=== PATIENT | male | born 1975 | race Caucasian/White ===

== ENCOUNTER 2021-04-27 07:04 | Outpatient (REF) | payer OTHER, SELFPAY ==
[2021-04-27 07:38] LABS: IDNOW Serial# 9DD0AD1C
[2021-04-27 07:39] LABS: COVID-19 Test Negative (Negative)
== END 2021-04-27 07:05 | disposition home or self-care (01) ==
LOC: HO.ED 07:04
PROVIDERS: Visit Provider Internal Medicine
DX: Z20.822 Contact with and (suspected) exposure to COVID-19 (principal)
CPT/HCPCS: 36415; 87635

== ENCOUNTER 2021-06-29 05:51 | Outpatient (REF) | payer OTHER, SELFPAY ==
[2021-06-29 06:16] LABS: IDNOW Serial# 9DD0AD1C
[2021-06-29 06:17] LABS: COVID-19 Test Positive (Negative)
== END 2021-06-29 05:52 | disposition home or self-care (01) ==
LOC: HO.LAB 05:51
PROVIDERS: Visit Provider Internal Medicine
DX: Z20.822 Contact with and (suspected) exposure to COVID-19 (principal)
CPT/HCPCS: 36415; 87635

== ENCOUNTER 2022-06-06 14:51 | Outpatient (REF) | payer OTHER, SELFPAY ==
[2022-06-06 15:46] LABS: Influenza A PCR NEGATIVE (Negative); Influenza B PCR NEGATIVE (Negative); Resp Syncy Virus RNA Qual PCR NEGATIVE (Negative); SARS COV2 PCR INHOUSE NEGATIVE (Negative)
== END 2022-06-06 14:52 | disposition home or self-care (01) ==
LOC: HO.LAB 14:51
PROVIDERS: Visit Provider Internal Medicine
DX: Z20.822 Contact with and (suspected) exposure to COVID-19 (principal)
CPT/HCPCS: 0241U

== ENCOUNTER 2022-07-02 19:04 | Inpatient (IN) | payer OTHER, SELFPAY ==
--- NOTE | ~2022-07-02 | XR_ITS ---
EXAMINATION: XR CHEST CLINICAL INFORMATION: Post enteric tube placement. COMPARISON: CT abdomen/pelvis performed earlier today at 7:47 PM. TECHNIQUE: Frontal view of the chest was obtained. FINDINGS: An enteric tube terminates in the stomach. Normal appearance of the cardiomediastinal silhouette. No focal airspace opacity, pleural effusion or pneumothorax. Partially imaged dilated loops of small bowel. No acute osseous abnormalities. XR/XR chest 1V IMPRESSION: 1. Enteric tube terminates in the stomach. 2. No acute cardiopulmonary findings. 3. Partially imaged dilated loops of small bowel.
--- NOTE | ~2022-07-02 | CT_ITS ---
EXAMINATION: CT ABDOMEN AND PELVIS WITHOUT CONTRAST CLINICAL INFORMATION: Abdominal pain. Vomiting fecal matter COMPARISON: None TECHNIQUE: Multidetector volumetric imaging was performed from the superior aspect of the liver through the pubic symphysis. Sagittal and coronal reformatted images were obtained on the technologist's workstation. This CT examination was performed using dose optimization techniques as appropriate, variously including the following: *Automated exposure control *Adjustment of mA and/or kV according to patient size (this includes techniques or standardized protocols for targeted exams where dose is matched to indication/reason for exam; i.e. extremities or head) *Use of iterative reconstruction technique DLP: 777 mGy-cm FINDINGS: LUNG BASES: The visualized lung bases are unremarkable. LIVER, GALLBLADDER, AND BILIARY TREE: The liver is normal in size, shape, and attenuation. No focal hepatic lesion or biliary ductal dilatation is present. The gallbladder is unremarkable with no evidence of radiopaque gallstones, gallbladder wall thickening, or obvious pericholecystic inflammatory changes. PANCREAS: Unremarkable. SPLEEN: Unremarkable. ADRENAL GLANDS: Unremarkable. KIDNEYS AND URETERS: The kidneys are normal in size, shape, and attenuation. No hydronephrosis, hydroureter, or calculi seen. No perinephric stranding. BLADDER: Unremarkable. GASTROINTESTINAL TRACT: Moderately distended small bowel loops throughout the abdomen. Transition point is just proximal to the terminal ileum. The terminal ileum is decompressed. The mesenteric twist. No bowel wall thickening or edema. Large bowel is decompressed. There is a redundant loop of the sigmoid colon extending into the right lower quadrant. The appendix is normal. No abnormality of the stomach. ABDOMINAL WALL: No significant hernia is appreciated. LYMPH NODES: Normal. VASCULAR: Unremarkable PELVIC VISCERA: Unremarkable. OSSEOUS STRUCTURES: Unremarkable. CT/CT abdomen pelvis wo IV con IMPRESSION: There is a distal small bowel obstruction. Fleischner guidelines were followed.
[2022-07-02 19:19] VITALS: BP 149/110; PULSE 145; RESP 18; O2SAT 95; BMI 27.1
--- NOTE | 2022-07-02 19:19 | ED_ITS ---
HPI - Abdominal Pain General Chief Complaint: Abdominal Pain <ANTONY Godinez - Last Filed: 07/02/22 19:25> Stated Complaint: Abdominal Pain <ANTONY Godinez - Last Filed: 07/02/22 19:25> Time Seen by Provider: 07/02/22 19:39 <ANTONY Godinez - Last Filed: 07/02/22 19:25> Source: patient <Ermias Wisdom MD - Last Filed: 07/03/22 01:48> Mode of arrival: ambulatory <Ermias Wisdom MD - Last Filed: 07/03/22 01:48> Limitations: no limitations <Ermias Wisdom MD - Last Filed: 07/03/22 01:48> History of Present Illness HPI narrative: Patient with history of severe acid reflux in 20s when knee has GI workup and interventional radiologist asking about the malrotation/intussusception which patient never had today patient comes here for nausea vomiting abdominal distention and pain since midnight , patient not able to pass any flatus since a.m. today vomiting fecal smell multiple times, no history of SBO in the past no fever or chills <Ermias Wisdom MD - Last Filed: 07/03/22 01:48> Related Data Home Medications: Home Medications Medication Instructions Recorded Confirmed omeprazole 40 mg capsule,delayed 40 mg PO DAILY 07/02/22 07/02/22 release sertraline 100 mg tablet 100 mg PO DAILY 07/02/22 07/02/22 <ANTONY Godinez - Last Filed: 07/02/22 19:25> Allergies/Adverse Reactions: Allergies Allergy/AdvReac Type Severity Reaction Status Date / Time heparin Allergy Unknown Unknown Verified 07/02/22 19:21 Penicillins Allergy Unknown Unknown Verified 07/02/22 19:21 <ANTONY Godinez - Last Filed: 07/02/22 19:25> Review of Systems Review of Systems Yes all other systems are reviewed and are negative <Ermias Wisdom MD - Last Filed: 07/03/22 01:48> PMFSH Social History Social History: Social History Alcohol intake: unknown Smoked in Last 30 Days: Yes Use of substances other than those prescribed or required for medical reasons: Unable to respond Advance Directives: No <ANTONY Godinez - Last Filed: 07/02/22 19:25> Physical Exam ED Vital Signs: Vital Signs - 24 hr 07/02/22 19:19 07/02/22 21:41 Temperature 98.0 F Pulse Rate 145 H 89 Respiratory Rate 18 18 Blood Pressure 149/110 H 147/105 H Pulse Oximetry 95 94 Oxygen Delivery Method Room Air BMI result Body Mass Index 27.1 <ANTONY Godinez - Last Filed: 07/02/22 19:25> Vital Signs - 24 hr 07/02/22 19:19 07/02/22 21:41 Temperature 98.0 F Pulse Rate 145 H 89 Respiratory Rate 18 18 Blood Pressure 149/110 H 147/105 H Pulse Oximetry 95 94 Oxygen Delivery Method Room Air BMI result Body Mass Index 27.1 <Ermias Wisdom MD - Last Filed: 07/03/22 01:48> Appearance: Alert. Oriented X3. In mild discomfort Eyes: No pallor or icterus ENT: Pharynx normal. Oral Mucosa moist Neck: Normal inspection. Neck supple. CVS: Normal heart rate and rhythm. Pulses normal. Respiratory: No respiratory distress. Equal air entry bilateral, no wheezing/rales/rhonchi Abdomen: Gaseous distended, sluggish bowel sounds. Diffuse tenderness no rebound tenderness no mass palpable, no CVA tenderness Skin: Skin warm and dry. Normal skin color. Normal skin turgor. Extremities: No lower extremity edema. No calf tenderness Neuro: Oriented X 3. No motor deficit. <Ermias Wisdom MD - Last Filed: 07/03/22 01:48> Course Course Course Narrative: RME--46yo with a past medical history of GI malrotation presenting to the ED complaining of abdominal pain, constipation, and vomiting fecal matter x 24 hours. Reports unable to tolerate p.o. Patient hypertensive and tachycardic in triage Labs, UA, CT AP, IVF ordered Patient pulled back into main ED <ANTONY Godinez - Last Filed: 07/02/22 19:25> Medical Decision Making Medical Decision Making MDM Narrative: Patient with acute small-bowel obstruction CT scan showed distended small bowel loops throughout the abdomen transition point just proximal to the terminal ileum NG tube was placed and about 800 cc of gastric contents drained patient felt much better case discussed Dr. Elam will admit patient for further evaluation possibly laparotomy patient had elevated creatinine to 2.35 with no prior history of kidney disease likely from prerenal from volume loss <Ermias Wisdom MD - Last Filed: 07/03/22 01:48> Differential Diagnosis SBO./pancreatitis/ischemic bowel <Ermias Wisdom MD - Last Filed: 07/03/22 01:48> Lab Data MDM Lab Attestation statement: I reviewed the patient's lab results. <Ermias Wisdom MD - Last Filed: 07/03/22 01:48> Result Diagrams: : 07/02/22 20:28 07/02/22 20:28 <ANTONY Godinez - Last Filed: 07/02/22 19:25> Labs: Lab Results 07/02/22 07/02/22 07/02/22 Range/Units 20:27 20:27 20:28 WBC 13.4 H (4.8-10.8) X10*3/uL RBC 6.41 H (4.60-5.80) X10*6/uL Hgb 18.7 H (14.0-18.0) g/dl Hct 54.8 H (42.0-52.0) % MCV 85.5 (80.0-98.0) fL MCH 29.2 (27.0-33.0) pg MCHC 34.1 (31.0-36.0) g/dl RDW 12.5 (11.0-16.0) % Plt Count 421 H (160-400) X10*3/uL MPV 9.2 L (9.4-12.4) fL Immature Gran % (Auto) 0.6 H (0.0-0.4) % Neut % (Auto) 80.7 H (45-73) % Lymph % (Auto) 11.4 L (20-40) % Sutton % (Auto) 6.5 (2-11) % Eos % (Auto) 0.3 (0-4) % Baso % (Auto) 0.5 (0-2) % Lymph # (Auto) 1.5 (1.2-4.9) X10*3/uL Sutton # (Auto) 0.9 (0.1-1.2) X10*3/uL Eos # (Auto) 0.0 (0.0-0.4) X10*3/uL Baso # (Auto) 0.1 (0.0-0.2) X10*3/uL Abs Immat Gran (auto) 0.08 H (0.00-0.03) X10*3/uL Absolute Neuts (auto) 10.8 H (2.0-8.3) x10*3/uL Absolute Nucleated RBC 0.000 (0.0-0.012) X10*3/uL Nucleated RBC % (auto) 0.0 (0.0-0.2) /100WBC Sodium (135-145) mmol/L Potassium (3.3-5.1) mmol/L Chloride (96-108) mmol/L Carbon Dioxide (22-29) mmol/L Anion Gap (12-20) BUN (9-16) mg/dL Creatinine (0.5-1.4) mg/dL Estim Creat Clear Calc Estimated GFR Random Glucose (60-115) mg/dL Lactic Acid (0.5-2.0) mmol/L Calcium (8.4-10.2) mg/dL Magnesium (1.6-2.6) mg/dL Total Bilirubin (0.0-1.0) mg/dL Direct Bilirubin (0.0-0.5) mg/dL AST (5-37) U/L ALT (0-40) U/L Alkaline Phosphatase (39-117) U/L Total Protein (6.5-8.0) g/dL Albumin (3.5-5.0) g/dL Lipase (8-78) U/L COVID-19 (GE) Negative (Negative) COVID-19 Clin Com See Note Influenza Type A (DEREK) Negative (Negative) Influenza Type B (DEREK) Negative (Negative) Influenza A & B Note See Note 07/02/22 07/02/22 Range/Units 20:28 20:28 WBC (4.8-10.8) X10*3/uL RBC (4.60-5.80) X10*6/uL Hgb (14.0-18.0) g/dl Hct (42.0-52.0) % MCV (80.0-98.0) fL MCH (27.0-33.0) pg MCHC (31.0-36.0) g/dl RDW (11.0-16.0) % Plt Count (160-400) X10*3/uL MPV (9.4-12.4) fL Immature Gran % (Auto) (0.0-0.4) % Neut % (Auto) (45-73) % Lymph % (Auto) (20-40) % Sutton % (Auto) (2-11) % Eos % (Auto) (0-4) % Baso % (Auto) (0-2) % Lymph # (Auto) (1.2-4.9) X10*3/uL Sutton # (Auto) (0.1-1.2) X10*3/uL Eos # (Auto) (0.0-0.4) X10*3/uL Baso # (Auto) (0.0-0.2) X10*3/uL Abs Immat Gran (auto) (0.00-0.03) X10*3/uL Absolute Neuts (auto) (2.0-8.3) x10*3/uL Absolute Nucleated RBC (0.0-0.012) X10*3/uL Nucleated RBC % (auto) (0.0-0.2) /100WBC Sodium 140 (135-145) mmol/L Potassium 4.5 (3.3-5.1) mmol/L Chloride 99 (96-108) mmol/L Carbon Dioxide 25 (22-29) mmol/L Anion Gap 21 H (12-20) BUN 26 H (9-16) mg/dL Creatinine 2.35 H (0.5-1.4) mg/dL Estim Creat Clear Calc 44.0 Estimated GFR 30 Random Glucose 122 H (60-115) mg/dL Lactic Acid 2.2 H* (0.5-2.0) mmol/L Calcium 11.2 H (8.4-10.2) mg/dL Magnesium 2.0 (1.6-2.6) mg/dL Total Bilirubin 0.4 (0.0-1.0) mg/dL Direct Bilirubin < 0.2 (0.0-0.5) mg/dL AST 21 (5-37) U/L ALT 20 (0-40) U/L Alkaline Phosphatase 64 (39-117) U/L Total Protein 9.9 H (6.5-8.0) g/dL Albumin 6.1 H (3.5-5.0) g/dL Lipase 15 (8-78) U/L COVID-19 ([facility]) (Negative) COVID-19 Clin Com Influenza Type A ([facility]EREK) (Negative) Influenza Type B (DEREK) (Negative) Influenza A & B Note <ANTONY Godinez - Last Filed: 07/02/22 19:25> Lab Results 07/02/22 07/02/22 07/02/22 Range/Units 20:27 20:27 20:28 WBC 13.4 H (4.8-10.8) X10*3/uL RBC 6.41 H (4.60-5.80) X10*6/uL Hgb 18.7 H (14.0-18.0) g/dl Hct 54.8 H (42.0-52.0) % MCV 85.5 (80.0-98.0) fL MCH 29.2 (27.0-33.0) pg MCHC 34.1 (31.0-36.0) g/dl RDW 12.5 (11.0-16.0) % Plt Count 421 H (160-400) X10*3/uL MPV 9.2 L (9.4-12.4) fL Immature Gran % (Auto) 0.6 H (0.0-0.4) % Neut % (Auto) 80.7 H (45-73) % Lymph % (Auto) 11.4 L (20-40) % Sutton % (Auto) 6.5 (2-11) % Eos % (Auto) 0.3 (0-4) % Baso % (Auto) 0.5 (0-2) % Lymph # (Auto) 1.5 (1.2-4.9) X10*3/uL Sutton # (Auto) 0.9 (0.1-1.2) X10*3/uL Eos # (Auto) 0.0 (0.0-0.4) X10*3/uL Baso # (Auto) 0.1 (0.0-0.2) X10*3/uL Abs Immat Gran (auto) 0.08 H (0.00-0.03) X10*3/uL Absolute Neuts (auto) 10.8 H (2.0-8.3) x10*3/uL Absolute Nucleated RBC 0.000 (0.0-0.012) X10*3/uL Nucleated RBC % (auto) 0.0 (0.0-0.2) /100WBC Sodium (135-145) mmol/L Potassium (3.3-5.1) mmol/L Chloride (96-108) mmol/L Carbon Dioxide (22-29) mmol/L Anion Gap (12-20) BUN (9-16) mg/dL Creatinine (0.5-1.4) mg/dL Estim Creat Clear Calc Estimated GFR Random Glucose (60-115) mg/dL Lactic Acid (0.5-2.0) mmol/L Calcium (8.4-10.2) mg/dL Magnesium (1.6-2.6) mg/dL Total Bilirubin (0.0-1.0) mg/dL Direct Bilirubin (0.0-0.5) mg/dL AST (5-37) U/L ALT (0-40) U/L Alkaline Phosphatase (39-117) U/L Total Protein (6.5-8.0) g/dL Albumin (3.5-5.0) g/dL Lipase (8-78) U/L COVID-19 (GE) Negative (Negative) COVID-19 Clin Com See Note Influenza Type A ([facility]EREK) Negative (Negative) Influenza Type B ([facility]EREK) Negative (Negative) Influenza A & B Note See Note 07/02/22 07/02/22 Range/Units 20:28 20:28 WBC (4.8-10.8) X10*3/uL RBC (4.60-5.80) X10*6/uL Hgb (14.0-18.0) g/dl Hct (42.0-52.0) % MCV (80.0-98.0) fL MCH (27.0-33.0) pg MCHC (31.0-36.0) g/dl RDW (11.0-16.0) % Plt Count (160-400) X10*3/uL MPV (9.4-12.4) fL Immature Gran % (Auto) (0.0-0.4) % Neut % (Auto) (45-73) % Lymph % (Auto) (20-40) % Sutton % (Auto) (2-11) % Eos % (Auto) (0-4) % Baso % (Auto) (0-2) % Lymph # (Auto) (1.2-4.9) X10*3/uL Sutton # (Auto) (0.1-1.2) X10*3/uL Eos # (Auto) (0.0-0.4) X10*3/uL Baso # (Auto) (0.0-0.2) X10*3/uL Abs Immat Gran (auto) (0.00-0.03) X10*3/uL Absolute Neuts (auto) (2.0-8.3) x10*3/uL Absolute Nucleated RBC (0.0-0.012) X10*3/uL Nucleated RBC % (auto) (0.0-0.2) /100WBC Sodium 140 (135-145) mmol/L Potassium 4.5 (3.3-5.1) mmol/L Chloride 99 (96-108) mmol/L Carbon Dioxide 25 (22-29) mmol/L Anion Gap 21 H (12-20) BUN 26 H (9-16) mg/dL Creatinine 2.35 H (0.5-1.4) mg/dL Estim Creat Clear Calc 44.0 Estimated GFR 30 Random Glucose 122 H (60-115) mg/dL Lactic Acid 2.2 H* (0.5-2.0) mmol/L Calcium 11.2 H (8.4-10.2) mg/dL Magnesium 2.0 (1.6-2.6) mg/dL Total Bilirubin 0.4 (0.0-1.0) mg/dL Direct Bilirubin < 0.2 (0.0-0.5) mg/dL AST 21 (5-37) U/L ALT 20 (0-40) U/L Alkaline Phosphatase 64 (39-117) U/L Total Protein 9.9 H (6.5-8.0) g/dL Albumin 6.1 H (3.5-5.0) g/dL Lipase 15 (8-78) U/L COVID-19 ([facility]) (Negative) COVID-19 Clin Com Influenza Type A ([facility]EREK) (Negative) Influenza Type B ([facility]EREK) (Negative) Influenza A & B Note <Ermias Wisdom MD - Last Filed: 07/03/22 01:48> Medications Administered Generic Name Dose Route Start Last Admin Trade Name Freq PRN Reason Stop Dose Admin Dextrose/Lactated Ringer's 1,000 mls @ 125 mls/hr 07/02/22 22:00 07/02/22 23:38 D5lr IVCONT 125 mls/hr .Q8H JARET Administration Discontinued Medications Generic Name Dose Route Start Last Admin Trade Name Freq PRN Reason Stop Dose Admin Famotidine 20 mg 07/02/22 19:22 07/02/22 20:45 Famotidine/Pf 20 Mg/2 Ml Vial IVPUSH 07/02/22 19:23 20 mg ONCE ONE Administration Sodium Chloride 1,000 mls @ 999 mls/hr 07/02/22 19:30 07/02/22 21:59 Ns IV 07/02/22 20:30 Infused .Q1H1M JARET Infusion Sodium Chloride 1,000 mls @ 999 mls/hr 07/02/22 21:24 07/02/22 23:38 Ns IV 07/02/22 22:24 Infused .Q1H1M ONE Infusion Lidocaine HCl 1 appl 07/02/22 20:52 07/02/22 22:17 Lidocaine Hcl 4 % Lvtxaz-Q-Ede 4 Ml TOPICAL 07/02/22 20:53 1 appl ONCE ONE Administration Morphine Sulfate 4 mg 07/02/22 20:17 07/02/22 20:46 Morphine Sulfate 4 Mg/Ml Cartridge IVPUSH 07/02/22 20:18 4 mg ONCE ONE Administration Protocol Ondansetron HCl 4 mg 07/02/22 19:22 07/02/22 20:45 Ondansetron Hcl 4 Mg/2 Ml Vial IVPUSH 07/02/22 19:23 4 mg ONCE ONE Administration <ANTONY Godinez - Last Filed: 07/02/22 19:25> Medications Administered Generic Name Dose Route Start Last Admin Trade Name Felipe PRN Reason Stop Dose Admin Dextrose/Lactated Ringer's 1,000 mls @ 125 mls/hr 07/02/22 22:00 07/02/22 23:38 D5lr IVCONT 125 mls/hr .Q8H JARET Administration Discontinued Medications Generic Name Dose Route Start Last Admin Trade Name Felipe PRN Reason Stop Dose Admin Famotidine 20 mg 07/02/22 19:22 07/02/22 20:45 Famotidine/Pf 20 Mg/2 Ml Vial IVPUSH 07/02/22 19:23 20 mg ONCE ONE Administration Sodium Chloride 1,000 mls @ 999 mls/hr 07/02/22 19:30 07/02/22 21:59 Ns IV 07/02/22 20:30 Infused .Q1H1M JARET Infusion Sodium Chloride 1,000 mls @ 999 mls/hr 07/02/22 21:24 07/02/22 23:38 Ns IV 07/02/22 22:24 Infused .Q1H1M ONE Infusion Lidocaine HCl 1 appl 07/02/22 20:52 07/02/22 22:17 Lidocaine Hcl 4 % Eblppr-P-Srq 4 Ml TOPICAL 07/02/22 20:53 1 appl ONCE ONE Administration Morphine Sulfate 4 mg 07/02/22 20:17 07/02/22 20:46 Morphine Sulfate 4 Mg/Ml Cartridge IVPUSH 07/02/22 20:18 4 mg ONCE ONE Administration Protocol Ondansetron HCl 4 mg 07/02/22 19:22 07/02/22 20:45 Ondansetron Hcl 4 Mg/2 Ml Vial IVPUSH 07/02/22 19:23 4 mg ONCE ONE Administration <Ermias Wisdom MD - Last Filed: 07/03/22 01:48> Discharge Plan Discharge Clinical Impression: Small bowel obstruction, Acute renal failure (ARF) <ANTONY Godinez - Last Filed: 07/02/22 19:25> Patient Disposition: Admitted As Inpatient <ANTONY Godinez - Last Filed: 07/02/22 19:25>
[2022-07-02 20:44] LABS: MANUAL DIFF FLAG NO
[2022-07-02] MEDS: ondansetron HCL 4 MG/2 ML VIAL IVPUSH (20:45)
[2022-07-02] MEDS: Famotidine/PF 20 MG/2 ML VIAL IVPUSH (20:45)
[2022-07-02 20:46] LABS: Basophils Absolute Auto 0.1 X10*3/uL (0.0-0.2); Basophils Percent Auto 0.5 % (0-2); Eosinophils Percent Auto 0.3 % (0-4); Hematocrit 54.8 % (42.0-52.0); Hemoglobin 18.7 g/dl (14.0-18.0); Imm Gran Abs Auto 0.08 X10*3/uL (0.00-0.03); Imm Gran Pct Auto 0.6 % (0.0-0.4); Lymphocytes Absolute Auto 1.5 X10*3/uL (1.2-4.9); Lymphocytes Percent Auto 11.4 % (20-40); Mean Corpuscular HGB Conc 34.1 g/dl (31.0-36.0); Mean Corpuscular Hemoglobin 29.2 pg (27.0-33.0); Mean Corpuscular Volume 85.5 fL (80.0-98.0); Mean Platelet Volume 9.2 fL (9.4-12.4); Monocytes Absolute Auto 0.9 X10*3/uL (0.1-1.2); Monocytes Percent Auto 6.5 % (2-11); Neutrophils Absolute Auto 10.8 x10*3/uL (2.0-8.3); Neutrophils Percent Auto 80.7 % (45-73); Platelet Count 421 X10*3/uL (160-400); Red Blood Count 6.41 X10*6/uL (4.60-5.80); Red Cell Distribution Width 12.5 % (11.0-16.0); White Blood Count 13.4 X10*3/uL (4.8-10.8)
[2022-07-02] MEDS: Morphine Sulfate 4 MG/ML CARTRIDGE IVPUSH (20:46)
[2022-07-02] MEDS: 0.9 % Sodium Chloride 1,000 ML 999 ML IV ×2 (20:46→22:10)
--- NOTE | 2022-07-02 21:04 | PC.NURSE ---
Pt alert and oriented ; No apparent distress, c/o abdominal pain accompanied by n/v last 2 days.
[2022-07-02 21:06] LABS: IDNOW Serial# BCCEAD1C; Influenza A Negative (Negative); Influenza B2 Negative (Negative)
[2022-07-02 21:07] LABS: COVID-19 Test Negative (Negative); IDNOW Serial# 16C4AD1C
[2022-07-02 21:17] LABS: Alanine Aminotransferase 20 U/L (0-40); Albumin Level 6.1 g/dL (3.5-5.0); Alkaline Phosphatase 64 U/L (39-117); Anion Gap 21 (12-20); Aspartate Amino Transferase 21 U/L (5-37); Bilirubin Direct < 0.2 mg/dL (0.0-0.5); Bilirubin Total 0.4 mg/dL (0.0-1.0); Blood Urea Nitrogen 26 mg/dL (9-16); Calcium 11.2 mg/dL (8.4-10.2); Carbon Dioxide 25 mmol/L (22-29); Chloride 99 mmol/L (96-108); Estimated Glomerular Filt Rate 30; Glucose Random 122 mg/dL (60-115); Lipase 15 U/L (8-78); Potassium 4.5 mmol/L (3.3-5.1); Sodium 140 mmol/L (135-145); Total Protein 9.9 g/dL (6.5-8.0)
--- NOTE | 2022-07-02 21:21 | PC.NURSE ---
At bedside, when Jayla RN placed gtube; IV line est. 20g L forearm by this nurse
[2022-07-02 21:22] LABS: Lactic Acid 2.2 mmol/L (0.5-2.0)
[2022-07-02 21:41] VITALS: BP 147/105; PULSE 89; RESP 18; TEMP 36.7; O2SAT 94
--- NOTE | 2022-07-02 21:58 | PHA.MEDREC ---
Pharmacy Consult ? Medication Reconciliation Pharmacy has completed the medication reconciliation.
[2022-07-02] MEDS: Lidocaine HCl 4 % Laryng-O-Jet 4 ML 1 APPL TOPICAL (22:17)
[2022-07-02 22:43] LABS: Reflex Lactate? Lactic Acid Added
[2022-07-02 23:15] VITALS: BP 158/102; PULSE 79; RESP 18; TEMP 37; O2SAT 99
[2022-07-02] MEDS: Dextrose 5 % and Lactated Ring 1,000 ML 125 ML IVCONT (23:38)
--- NOTE | 2022-07-02 23:42 | MHC.EDTECH ---
pt transferred into hospital bed. resting comfortably at this time.
[2022-07-02 23:54] LABS: ~Lactic Acid-LAB USE ONLY 0.8 mmol/L (0.5-2.0)
--- NOTE | 2022-07-03 01:21 | PC.NURSE ---
Held ativan at this time. Pt is sleeping and expressed concern for being able to fall asleep, so this nurse did not want to wake pt.
--- NOTE | 2022-07-03 02:52 | PC.NURSE ---
Pt sleeping, no apparent distress, gtube still intact
[2022-07-03 03:01] VITALS: RESP 18
[2022-07-03 05:02] VITALS: BP 148/98; PULSE 69; RESP 17; TEMP 37; O2SAT 99
--- NOTE | 2022-07-03 06:50 | PC.NURSE ---
D5LR ordered from 2200 still running, 0600 delayed administration for that reason
--- NOTE | 2022-07-03 07:43 | P.HPGS_ITS ---
History of Present Illness History of Present Illness Date of Service: 07/03/22 Chief complaint: Small bowel obstruction Narrative: Aaron Sorenson is a 46 year old male presenting with complaints of abdominal distension nausea and vomiting over the previous 24 hours. He reports the emesi s was fecal in nature. He denies a previous history of abdominal surgeries but does have a possible history of intestinal malrotation and intussusception. He reports 2 episodes of abdominal pain in the left upper quadrant which quickly resolved. He presented to the emergency department because of the persistent vomiting. He has not passed bowels in the past 24 hours but does report passing flatus. He presented to the emergency department for further evaluation. He was noted to be dehydrated with an elevated hemoglobin and hematocrit, and acute renal failure. CT abdomen and pelvis revealed dilated small bowel and stomach with an apparent transition point the distal ileum. Findings were suggestive of a small-bowel obstruction. He is admitted to the surgical service for further management. A nasogastric tube was placed with production of fecal appearing material. Review of Systems Review of Systems: Yes all other systems are reviewed and are negative Constitutional: Constitutional: Denies chills, Denies fever(s), Denies headache(s), Reports poor appetite and Denies weakness ENT: Denies headache(s) Cardiovascular: Cardiovascular: Denies chest pain, Reports rapid heart rate, Denies irregular heart rhythm, Denies palpitations and Denies dyspnea Respiratory: Respiratory: Denies cough, Denies excessive phlegm production and Denies dyspnea Gastrointestinal: Gastrointestinal: Reports abdominal pain, Reports bloating, Denies change in bowel habits, Reports constipation, Denies heartburn, Denies diarrhea, Reports nausea and Reports vomiting Genitourinary: Genitourinary: Denies difficulty urinating and Denies urinary frequency Musculoskeletal: Musculoskeletal: Denies back pain, Denies muscle weakness and Denies numbness Integumentary/Breasts: Skin/Breast: Denies changing lesions and Denies unusual bruising Neurologic: Denies headache(s), Denies numbness, Denies paresthesias and Denies weakness Psychiatric: Psychiatric: Denies anxiety and Denies depression Endocrine: Endocrine: Denies palpitations Hematologic/Lymphatic: Hematologic/Lymphatic: Denies lymphadenopathy PMFSH Social History Social History Alcohol intake: unknown Smoked in Last 30 Days: Yes Use of substances other than those prescribed or required for medical reasons: Unable to respond Advance Directives: No Meds Allergies Allergy/AdvReac Type Severity Reaction Status Date / Time heparin Allergy Unknown Unknown Verified 07/02/22 19:21 Penicillins Allergy Unknown Unknown Verified 07/02/22 19:21 Active Medications: Current Medications Hydromorphone HCl (Hydromorphone Hcl 0.5 Mg/0.5 Ml Syringe) 0.5 mg IVPUSH Q3H PRN; Protocol PRN Reason: Pain, Severe (Pain Scale 7-10) Dextrose/Lactated Ringer's (D5lr) 1,000 mls @ 125 mls/hr IVCONT .Q8H JARET Last Admin: 07/02/22 23:38 Dose: 125 mls/hr Ondansetron HCl (Ondansetron Hcl 4 Mg/2 Ml Vial) 4 mg IVPUSH QID PRN PRN Reason: Nausea Pharmacy Consult (Consult Rx Perform Med Rec) 1 each MISCELLANE ONCE PRN PRN Reason: Consult order Home Medications Medication Instructions Recorded Confirmed Last Taken Type omeprazole 40 mg capsule,delayed 40 mg PO DAILY 07/02/22 07/02/22 07/02/22 History release sertraline 100 mg tablet 100 mg PO DAILY 07/02/22 07/02/22 07/02/22 History Physical Exam Vital Signs: Vital Signs: Last Vital Signs Temp 98.6 F 07/03/22 05:02 Pulse 69 07/03/22 05:02 Resp 17 07/03/22 05:02 BP 148/98 H 07/03/22 05:02 Pulse Ox 99 07/03/22 05:02 O2 Del Method 07/03/22 05:02 BMI result Body Mass Index 27.1 Const: General: cooperative and no acute distress Nutritional Appearance: well nourished Orientation/consciousness: patient oriented x3 Limitations: no limitations HEENT: Head: Yes normocephalic and Yes atraumatic Ears: hearing grossly normal bilaterally Resp: Effort & Inspection: normal respiratory effort, no audible wheezes, no cough and no respiratory distress Cardio: Jugular venous distension: no JVD GI: Inspection: Yes normal to inspection and Yes distended Palpation (GI): Soft to palpation, nontender, no guarding and not rigid Percussion: Yes tympanic to percussion Rectal Exam - Male: Yes deferred Skin: Other: Warm, dry, no rash Neuro: General: patient oriented x3 Extrem: General: Yes no clubbing, cyanosis or edema Results Results Labs: Short CBC 07/02/22 Range/Units 20:28 WBC 13.4 H (4.8-10.8) X10*3/uL Hgb 18.7 H (14.0-18.0) g/dl Hct 54.8 H (42.0-52.0) % Plt Count 421 H (160-400) X10*3/uL BMP 07/02/22 20:28 Sodium 140 Potassium 4.5 Chloride 99 Carbon Dioxide 25 BUN 26 H Creatinine 2.35 H Calcium 11.2 H Liver Function 07/02/22 Range/Units 20:28 Total Bilirubin 0.4 (0.0-1.0) mg/dL Direct Bilirubin < 0.2 (0.0-0.5) mg/dL AST 21 (5-37) U/L ALT 20 (0-40) U/L Alkaline Phosphatase 64 (39-117) U/L Albumin 6.1 H (3.5-5.0) g/dL Abdomen CT scan report/results: image reviewed CT scan - pelvis: image reviewed Assessment and Plan (1) Small bowel obstruction: Status: Acute (2) Acute renal failure (ARF): Status: Acute Plan 46-year-old male patient presenting with a small-bowel obstruction virgin abdomen. He has previously undergone colonoscopy at the age of 42 due to a family history. He also underwent EGD which apparently was normal. He reports a 24 hour history nausea vomiting and abdominal pain. Nasogastric tube is subsequently been placed with improvement in his symptoms. His abdomen remains mildly distended with tympany to percussion. Will continue IV hydration, bowel rest and nasogastric tube decompression. Hospitalist consultation requested for acute renal failure. Time Spent With Patient Time: Total time managing care of this patient today ____ minutes. Quality Stroke Does the patient have a stroke diagnosis?: No VTE Prior VTE?: No VTE Risk Level:: Surgical - low VTE Device Contraindication: N/A - Device Ordered VTE Drug Contraindication: Treatment Not Indicated Procedures Date of Service Date of Service: 07/03/22
[2022-07-03] MEDS: Dextrose 5 % and Lactated Ring 1,000 ML 125 ML IVCONT ×3 (07:51→23:12)
--- NOTE | 2022-07-03 10:19 | PC.NURSE ---
pt states that he had to urinate and while he was doing so he had the urge to poop. He could not poop and pain in abdomen increased. Pt requesting pain medication at this time.
[2022-07-03] MEDS: HYDROmorphone HCl 0.5 MG/0.5 ML SYRINGE IVPUSH ×2 (10:22→17:53)
[2022-07-03 10:52] VITALS: BP 141/88; PULSE 74; RESP 16; TEMP 36.6; O2SAT 96
--- NOTE | 2022-07-03 11:13 | PC.NURSE ---
patient a&ox3, NG tube rt nare to wall suction, D5LR running at 125 per order, patient currently denying pain, call isidro within reach, will continue to monitor
--- NOTE | 2022-07-03 11:47 | PM.IMCN ---
History of Present Illness Data of Consult Service Date: 07/03/22 Primary Care Provider: Nonstaff Physician HPI Reason for consult: clarisa 46M PMH mood disorder, GERD, presented with 1 day of abd pain, N/V which progressed to fecal material. no history of SBO in past. in ED found to have SBO, labs c/w severe dehydration and CLARISA. Review of Systems Review of Systems: Yes all other systems are reviewed and are negative [facility] Social History Alcohol intake: unknown Smoked in Last 30 Days: Yes Use of substances other than those prescribed or required for medical reasons: Unable to respond Advance Directives: No Meds Allergies Allergy/AdvReac Type Severity Reaction Status Date / Time heparin Allergy Unknown Unknown Verified 07/02/22 19:21 Penicillins Allergy Unknown Unknown Verified 07/02/22 19:21 Active Medications: Current Medications Acetaminophen (Acetaminophen 325 Mg Tablet) 650 mg PO QID PRN PRN Reason: headache, temp > 101 Hydromorphone HCl (Hydromorphone Hcl 0.5 Mg/0.5 Ml Syringe) 0.5 mg IVPUSH Q3H PRN; Protocol PRN Reason: Pain, Severe (Pain Scale 7-10) Last Admin: 07/03/22 10:22 Dose: 0.5 mg Dextrose/Lactated Ringer's (D5lr) 1,000 mls @ 125 mls/hr IVCONT .Q8H JARET Last Admin: 07/03/22 07:51 Dose: 125 mls/hr Ondansetron HCl (Ondansetron Hcl 4 Mg/2 Ml Vial) 4 mg IVPUSH QID PRN PRN Reason: Nausea Pharmacy Consult (Consult Rx Perform Med Rec) 1 each MISCELLANE ONCE PRN PRN Reason: Consult order Sodium Chloride (0.9 % Sodium Chloride Flush 3 Ml Syringe) 3 ml IVFLUSH QSHIFT [facility] Zolpidem Tartrate (Zolpidem Tartrate 5 Mg Tablet) 5 mg PO BEDTIME PRN PRN Reason: Insomnia Home Medications Medication Instructions Recorded Confirmed Last Taken Type omeprazole 40 mg capsule,delayed 40 mg PO DAILY 07/02/22 07/02/22 07/02/22 History release sertraline 100 mg tablet 100 mg PO DAILY 07/02/22 07/02/22 07/02/22 History Physical Exam Vital Signs and Narrative: Vital Signs: Last Vital Signs Temp 97.9 F 07/03/22 10:52 Pulse 74 07/03/22 10:52 Resp 16 07/03/22 10:52 BP 141/88 H 07/03/22 10:52 Pulse Ox 96 07/03/22 10:52 O2 Del Method 07/03/22 10:52 BMI result Body Mass Index 27.1 General: AO X 3, no acute distress Resp: CTA bilateral, no accessory muscles used CVS: S1,S2,RRR GI: soft, non tender, distended Neuro: motor grossly intact, alert Psych: appropriate affect, appropriate insight Results Labs CBC and Chem 7: 07/02/22 20:28 07/02/22 20:28 Labs: Laboratory Results - last 24 hr 07/02/22 07/02/22 07/02/22 20:27 20:27 20:28 MCV 85.5 MCH 29.2 MCHC 34.1 RDW 12.5 Plt Count 421 H MPV 9.2 L Immature Gran % (Auto) 0.6 H Neut % (Auto) 80.7 H Lymph % (Auto) 11.4 L [place] % (Auto) 6.5 Eos % (Auto) 0.3 Baso % (Auto) 0.5 Lymph # (Auto) 1.5 [place] # (Auto) 0.9 Eos # (Auto) 0.0 Baso # (Auto) 0.1 Abs Immat Gran (auto) 0.08 H Absolute Neuts (auto) 10.8 H Absolute Nucleated RBC 0.000 Nucleated RBC % (auto) 0.0 Anion Gap Estim Creat Clear Calc Estimated GFR Random Glucose Lactic Acid Lactic Acid F/U @ 2Hr Calcium Magnesium Total Bilirubin Direct Bilirubin AST ALT Alkaline Phosphatase Total Protein Albumin Lipase COVID-19 (GE) Negative COVID-19 Clin Com See Note Influenza Type A (DEREK) Negative Influenza Type B (DEREK) Negative Influenza A & B Note See Note 07/02/22 07/02/22 07/02/22 20:28 20:28 23:18 MCV MCH MCHC RDW Plt Count MPV Immature Gran % (Auto) Neut % (Auto) Lymph % (Auto) [place] % (Auto) Eos % (Auto) Baso % (Auto) Lymph # (Auto) [place] # (Auto) Eos # (Auto) Baso # (Auto) Abs Immat Gran (auto) Absolute Neuts (auto) Absolute Nucleated RBC Nucleated RBC % (auto) Anion Gap 21 H Estim Creat Clear Calc 44.0 Estimated GFR 30 Random Glucose 122 H Lactic Acid 2.2 H* Lactic Acid F/U @ 2Hr 0.8 Calcium 11.2 H Magnesium 2.0 Total Bilirubin 0.4 Direct Bilirubin < 0.2 AST 21 ALT 20 Alkaline Phosphatase 64 Total Protein 9.9 H Albumin 6.1 H Lipase 15 COVID-19 (GE) COVID-19 Clin Com Influenza Type A (DEREK) Influenza Type B (DEREK) Influenza A & B Note Imaging Radiologist's Impressions: Impressions Abdomen/Pelvis CT 07/02/22 19:57 IMPRESSION: There is a distal small bowel obstruction. Fleischner guidelines were followed. Chest X-Ray 07/02/22 20:53 IMPRESSION: 1. Enteric tube terminates in the stomach. 2. No acute cardiopulmonary findings. 3. Partially imaged dilated loops of small bowel. Assessment and Plan (1) Small bowel obstruction: Status: Acute Plan 46M PMH mood disorder, GERD presented with SBO, CLARISA SBO management per surgery CLARISA due to severe dehydration ivf, monitor bmp Time Spent With Patient Time: Total time managing care of this patient today ____ minutes.
[2022-07-03 12:11] LABS: MANUAL DIFF FLAG NO
[2022-07-03 12:24] LABS: Basophils Absolute Auto 0.1 X10*3/uL (0.0-0.2); Basophils Percent Auto 0.7 % (0-2); Eosinophils Absolute Auto 0.4 X10*3/uL (0.0-0.4); Eosinophils Percent Auto 5.3 % (0-4); Hematocrit 43.8 % (42.0-52.0); Hemoglobin 14.4 g/dl (14.0-18.0); Imm Gran Abs Auto 0.02 X10*3/uL (0.00-0.03); Imm Gran Pct Auto 0.3 % (0.0-0.4); Lymphocytes Absolute Auto 1.3 X10*3/uL (1.2-4.9); Lymphocytes Percent Auto 17.8 % (20-40); Mean Corpuscular HGB Conc 32.9 g/dl (31.0-36.0); Mean Corpuscular Hemoglobin 28.6 pg (27.0-33.0); Mean Corpuscular Volume 86.9 fL (80.0-98.0); Mean Platelet Volume 9.3 fL (9.4-12.4); Monocytes Absolute Auto 0.7 X10*3/uL (0.1-1.2); Monocytes Percent Auto 9.3 % (2-11); Neutrophils Absolute Auto 4.9 x10*3/uL (2.0-8.3); Neutrophils Percent Auto 66.6 % (45-73); Platelet Count 255 X10*3/uL (160-400); Red Blood Count 5.04 X10*6/uL (4.60-5.80); Red Cell Distribution Width 12.6 % (11.0-16.0); White Blood Count 7.3 X10*3/uL (4.8-10.8)
[2022-07-03 13:11] VITALS: BP 139/80; PULSE 65; RESP 16; TEMP 36.4; O2SAT 96
[2022-07-03 13:14] LABS: Anion Gap 13 (12-20); Blood Urea Nitrogen 26 mg/dL (9-16); Calcium 8.9 mg/dL (8.4-10.2); Carbon Dioxide 25 mmol/L (22-29); Chloride 106 mmol/L (96-108); Creatinine Clr Calc Pharmacy 86.2; Estimated Glomerular Filt Rate > 60; Glucose Random 122 mg/dL (60-115); Potassium 3.7 mmol/L (3.3-5.1); Sodium 140 mmol/L (135-145)
[2022-07-03 15:33] VITALS: BP 141/79; PULSE 63; RESP 17; TEMP 36.6; O2SAT 96
[2022-07-03 20:00] VITALS: BP 141/89; PULSE 62; RESP 17; TEMP 36.6; O2SAT 96
[2022-07-04 03:35] VITALS: BP 138/85; PULSE 52; RESP 16; TEMP 36.2; O2SAT 97
[2022-07-04] MEDS: Dextrose 5 % and Lactated Ring 1,000 ML 125 ML IVCONT (05:18)
[2022-07-04 06:15] LABS: Hematocrit 42.1 % (42.0-52.0); Hemoglobin 13.8 g/dl (14.0-18.0); Mean Corpuscular HGB Conc 32.8 g/dl (31.0-36.0); Mean Corpuscular Hemoglobin 28.8 pg (27.0-33.0); Mean Corpuscular Volume 87.9 fL (80.0-98.0); Mean Platelet Volume 9.4 fL (9.4-12.4); Platelet Count 231 X10*3/uL (160-400); Red Blood Count 4.79 X10*6/uL (4.60-5.80); Red Cell Distribution Width 12.3 % (11.0-16.0); White Blood Count 6.9 X10*3/uL (4.8-10.8)
[2022-07-04 07:07] VITALS: BP 135/77; PULSE 54; RESP 18; TEMP 36.1; O2SAT 98
[2022-07-04 07:19] LABS: Anion Gap 12 (12-20); Blood Urea Nitrogen 25 mg/dL (9-16); Carbon Dioxide 29 mmol/L (22-29); Chloride 105 mmol/L (96-108); Creatinine Clr Calc Pharmacy 95.8; Estimated Glomerular Filt Rate > 60; Glucose Fasting 99 mg/dL (60-99); Potassium 4.4 mmol/L (3.3-5.1); Sodium 142 mmol/L (135-145)
--- NOTE | 2022-07-04 08:03 | P.PNGS_ITS ---
Subjective Subjective Date of Service: 07/04/22 Interval history: Had some cramping pain last night but then began to pass flatus and had a small liquid BM. Feeling better this morning. Denies pain. Physical Exam Vital Signs: Vital Signs: Last Vital Signs Temp 97 F 07/04/22 07:07 Pulse 54 07/04/22 07:07 Resp 18 07/04/22 07:07 BP 135/77 07/04/22 07:07 Pulse Ox 98 07/04/22 07:07 O2 Del Method 07/04/22 07:07 BMI result Body Mass Index 27.1 Const: General: comfortable, no acute distress and alert Orientation/ consciousness: patient oriented x3 Resp: Effort & Inspection: normal respiratory effort GI: Inspection: No distended Palpation (GI): Soft to palpation, nontender, no guarding and not rigid Percussion: Yes normal to percussion Skin: General skin exam: no rashes or lesions noted Neuro: General: patient oriented x3 Extrem: General: Yes no clubbing, cyanosis or edema Objective Data Active Medications Acetaminophen (Acetaminophen 325 Mg Tablet) 650 mg PO QID PRN PRN Reason: headache, temp > 101 Hydromorphone HCl (Hydromorphone Hcl 0.5 Mg/0.5 Ml Syringe) 0.5 mg IVPUSH Q3H PRN; Protocol PRN Reason: Pain, Severe (Pain Scale 7-10) Last Admin: 07/03/22 17:53 Dose: 0.5 mg Documented By: SARITA Dextrose/Lactated Ringer's (D5lr) 1,000 mls @ 125 mls/hr IVCONT .Q8H ON LICENSE OF [facility] Last Admin: 07/04/22 05:18 Dose: 125 mls/hr Documented By: TAQUERIA Ondansetron HCl (Ondansetron Hcl 4 Mg/2 Ml Vial) 4 mg IVPUSH QID PRN PRN Reason: Nausea Pharmacy Consult (Consult Rx Perform Med Rec) 1 each MISCELLANE ONCE PRN PRN Reason: Consult order Sodium Chloride (0.9 % Sodium Chloride Flush 3 Ml Syringe) 3 ml IVFLUSH QSHIFT ON LICENSE OF [facility] Last Admin: 07/03/22 23:31 Dose: Not Given Documented By: TAQUERIA Non-Admin Reason: IV Running Zolpidem Tartrate (Zolpidem Tartrate 5 Mg Tablet) 5 mg PO BEDTIME PRN PRN Reason: Insomnia Labs CBC & Chem 7: 07/04/22 05:14 07/04/22 05:14 Labs: Laboratory Results - last 24 hr 07/03/22 07/03/22 07/04/22 12:06 12:06 05:14 MCV 86.9 87.9 MCH 28.6 28.8 MCHC 32.9 32.8 RDW 12.6 12.3 Plt Count 255 D 231 MPV 9.3 L 9.4 Immature Gran % (Auto) 0.3 Neut % (Auto) 66.6 Lymph % (Auto) 17.8 L [place] % (Auto) 9.3 Eos % (Auto) 5.3 H Baso % (Auto) 0.7 Lymph # (Auto) 1.3 [place] # (Auto) 0.7 Eos # (Auto) 0.4 Baso # (Auto) 0.1 Abs Immat Gran (auto) 0.02 Absolute Neuts (auto) 4.9 Absolute Nucleated RBC 0.000 0.000 Nucleated RBC % (auto) 0.0 0.0 Anion Gap 13 Estim Creat Clear Calc 86.2 Estimated GFR > 60 Random Glucose 122 H Fasting Glucose Calcium 8.9 D 07/04/22 05:14 MCV MCH MCHC RDW Plt Count MPV Immature Gran % (Auto) Neut % (Auto) Lymph % (Auto) [place] % (Auto) Eos % (Auto) Baso % (Auto) Lymph # (Auto) [place] # (Auto) Eos # (Auto) Baso # (Auto) Abs Immat Gran (auto) Absolute Neuts (auto) Absolute Nucleated RBC Nucleated RBC % (auto) Anion Gap 12 Estim Creat Clear Calc 95.8 Estimated GFR > 60 Random Glucose Fasting Glucose 99 Calcium 9.0 Microbiology Microbiology Results: Microbiology 07/02/22 20:30 Blood Culture - Preliminary Blood - Venous No growth after 24 hours. 07/02/22 20:30 Blood Culture - Preliminary Blood - Venous No growth after 24 hours. Procedures Date of Service Date of Service: 07/04/22 Progress Note: A&P Assessment and plan (1) Small bowel obstruction: Status: Acute (2) Acute renal failure (ARF): Status: Acute Plan 46-year-old male patient presenting with a small-bowel obstruction virgin abdomen. Etiology unclear, no acute findings on CT scan- may be resolved intussussception. Appears to be resolving with nonoperative measures. Has some evidence of GI function and NGT output overnight scanty. Clamp NGT for 4 hrs, check residual. Unclamp sooner if develops abd pain, n/v. Will remove if remains asymptomatic and residual <100cc. Encouraged to ambulate the halls. Patient comfortable with plan. CLARISA improving with IVF. Will continue for now until PO intake adequate. Time Spent With Patient Time: Total time managing care of this patient today ____ minutes. Quality Stroke Does the patient have a stroke diagnosis?: No VTE Prior VTE?: No VTE Risk Level:: Surgical - low VTE Device Contraindication: N/A - Device Ordered VTE Drug Contraindication: Treatment Not Indicated
--- NOTE | 2022-07-04 08:03 | P.PNGS_ITS ---
Subjective Subjective Date of Service: 07/04/22 Interval history: Overall patient feels improved with decreased abdominal pain and no nausea or vomiting. Reports a small liquid bowel movement and flatus. Physical Exam Vital Signs: Vital Signs: Last Vital Signs Temp 97 F 07/04/22 07:07 Pulse 54 07/04/22 07:07 Resp 18 07/04/22 07:07 BP 135/77 07/04/22 07:07 Pulse Ox 98 07/04/22 07:07 O2 Del Method 07/04/22 07:07 BMI result Body Mass Index 27.1 Const: General: comfortable and no acute distress Nutritional Appearance: well nourished Orientation/consciousness: patient oriented x3 Limitations: no limitations Resp: Effort & Inspection: normal respiratory effort GI: Inspection: Yes normal to inspection and No distended Palpation (GI): Soft to palpation, nontender and no guarding Percussion: Yes normal to percussion Neuro: General: patient oriented x3 Extrem: General: Yes normal to inspection Objective Data Active Medications Acetaminophen (Acetaminophen 325 Mg Tablet) 650 mg PO QID PRN PRN Reason: headache, temp > 101 Hydromorphone HCl (Hydromorphone Hcl 0.5 Mg/0.5 Ml Syringe) 0.5 mg IVPUSH Q3H PRN; Protocol PRN Reason: Pain, Severe (Pain Scale 7-10) Last Admin: 07/03/22 17:53 Dose: 0.5 mg Documented By: SARITA Dextrose/Lactated Ringer's (D5lr) 1,000 mls @ 125 mls/hr IVCONT .Q8H [facility] Last Admin: 07/04/22 05:18 Dose: 125 mls/hr Documented By: TAQUERIA Ondansetron HCl (Ondansetron Hcl 4 Mg/2 Ml Vial) 4 mg IVPUSH QID PRN PRN Reason: Nausea Pharmacy Consult (Consult Rx Perform Med Rec) 1 each MISCELLANE ONCE PRN PRN Reason: Consult order Sodium Chloride (0.9 % Sodium Chloride Flush 3 Ml Syringe) 3 ml IVFLUSH QSHIFT [facility] Last Admin: 07/03/22 23:31 Dose: Not Given Documented By: TAQUERIA Non-Admin Reason: IV Running Zolpidem Tartrate (Zolpidem Tartrate 5 Mg Tablet) 5 mg PO BEDTIME PRN PRN Reason: Insomnia Labs CBC & Chem 7: 07/04/22 05:14 07/04/22 05:14 Labs: Laboratory Results - last 24 hr 07/03/22 07/03/22 07/04/22 12:06 12:06 05:14 MCV 86.9 87.9 MCH 28.6 28.8 MCHC 32.9 32.8 RDW 12.6 12.3 Plt Count 255 D 231 MPV 9.3 L 9.4 Immature Gran % (Auto) 0.3 Neut % (Auto) 66.6 Lymph % (Auto) 17.8 L [place] % (Auto) 9.3 Eos % (Auto) 5.3 H Baso % (Auto) 0.7 Lymph # (Auto) 1.3 [place] # (Auto) 0.7 Eos # (Auto) 0.4 Baso # (Auto) 0.1 Abs Immat Gran (auto) 0.02 Absolute Neuts (auto) 4.9 Absolute Nucleated RBC 0.000 0.000 Nucleated RBC % (auto) 0.0 0.0 Anion Gap 13 Estim Creat Clear Calc 86.2 Estimated GFR > 60 Random Glucose 122 H Fasting Glucose Calcium 8.9 D 07/04/22 05:14 MCV MCH MCHC RDW Plt Count MPV Immature Gran % (Auto) Neut % (Auto) Lymph % (Auto) [place] % (Auto) Eos % (Auto) Baso % (Auto) Lymph # (Auto) [place] # (Auto) Eos # (Auto) Baso # (Auto) Abs Immat Gran (auto) Absolute Neuts (auto) Absolute Nucleated RBC Nucleated RBC % (auto) Anion Gap 12 Estim Creat Clear Calc 95.8 Estimated GFR > 60 Random Glucose Fasting Glucose 99 Calcium 9.0 Microbiology Microbiology Results: Microbiology 07/02/22 20:30 Blood Culture - Preliminary Blood - Venous No growth after 24 hours. 07/02/22 20:30 Blood Culture - Preliminary Blood - Venous No growth after 24 hours. Procedures Date of Service Date of Service: 07/04/22 Progress Note: A&P Assessment and plan (1) Small bowel obstruction: Status: Acute Assessment and Plan: Small-bowel obstruction appears to be resolved. I reviewed the CT abdomen and pelvis, does not appear to have malrotation or intussusception. Will do a clamping trial of the NG tube and check residuals after 4 hours. If low residu als will removed tube start clear liquids. (2) Acute renal failure (ARF): Status: Acute Assessment and Plan: Renal function now improved after hydration Time Spent With Patient Time: Total time managing care of this patient today ____ minutes. Quality Stroke Does the patient have a stroke diagnosis?: No VTE Prior VTE?: No VTE Risk Level:: Surgical - low VTE Device Contraindication: N/A - Device Ordered VTE Drug Contraindication: Treatment Not Indicated
--- NOTE | 2022-07-04 13:52 | MHC.CM.PN ---
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 PT VERIFIES [employer] X3 AND HAS COMPLETED A HCP W/CM, PT PROVIDED W/EDUCATIONAL HANDOUT. ORIGINAL AND 2 COPIES, PT HAS NAMED HIS SISTER MONA CANELA [phone] HIS HCA W/NO ALTERNATE. DC PLAN: HOME SELF-CARE, PT WILL SELF TRANSPORT HIS VEHICLE IS IN LOT.
[2022-07-04 16:00] VITALS: BP 148/91; PULSE 65; RESP 16; TEMP 36.4; O2SAT 96
--- NOTE | 2022-07-08 11:20 | PM.DS ---
DS: Providers Provider Date of Service: 07/05/22 Date of admission: 07/02/22 21:52 Date of discharge: 07/05/22 Primary care physician: Nonstaff Physician Attending physician on admission: Ming Elam Consults: 07/02/22 21:57 Consult to Hospitalist Routine Consulting Provider: Hospitalist Reason For Exam: Acute renal failure, small bowel obstruction DS: Diagnosis Discharge Diagnosis (1) Small bowel obstruction: Status: Acute (2) Acute renal failure (ARF): Status: Acute DS: Summary Hospital Course Hospital Course: HPI AT ADMISSION: Aaron Sorenson is a 46 year old male presenting with complaints of abdominal distension nausea and vomiting over the previous 24 hours.? He reports the emesis was fecal in nature.? 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 He reports 2 episodes of abdominal pain in the left upper quadrant which quickly resolved.? He presented to the emergency department because of the persistent vomiting.? He has not passed bowels in the past 24 hours but does report passing flatus.? He presented to the emergency department for further evaluation.? He was noted to be dehydrated with an elevated hemoglobin and hematocrit, and acute renal failure.? CT abdomen and pelvis revealed dilated small bowel and stomach with an apparent transition point the distal ileum.? Findings were suggestive of a small-bowel obstruction.? HOSPITAL COURSE: He was admitted to the surgical service for further management.? A nasogastric tube was placed with production of fecal appearing material. Supportive measures were continued with IV hydration, bowel rest and nasogastric tube decompression.?He also had an CLARISA with BUN/Cr of 26/2.35 with an elevated lactic acid, likely secondary to hypovolemia due to GI losses. Hospitalist consultation was requested. The patient had an uncomplicated hospital course. He improved symptomatically and had resolution of his abdominal pain. He began to pass flatus and a small BM. His abdomen was benign, soft and nontender/nondistended. His renal function continued to improve. His NGT was clamped for 4 hours and he remained asymptomatic with low residual. the NGT was removed and he was started on clear liquids. He was tolerating this and was advanced further later in the day. He was tolerating a solid diet without N/V or recurrent abdominal pain with good GI function. He felt ready for discharge. He was discharged to home on 07/04/22 in stable condition. He is to follow up with his PCP. Status at Discharge Functional status at discharge: independent ambulation Overall status at discharge: patient is back to baseline Time Spent with Patient Time attestation: Total time managing care of this patient today ____ minutes. Discharge coordination time: Less than 30 minutes Quality: Safe Use of Opioids Does Pt have an Active Cancer Diagnosis on the Problem List?: No Quality: Stroke Does the patient have a stroke diagnosis?: No Physical Exam Vital Signs: Vital Signs: Last Vital Signs Temp 97.5 F 07/04/22 16:00 Pulse 65 07/04/22 16:00 Resp 16 07/04/22 16:00 BP 148/91 H 07/04/22 16:00 Pulse Ox 96 07/04/22 16:00 O2 Del Method 07/04/22 16:00 BMI result Body Mass Index 27.1 Const: General: comfortable and no acute distress Orientation/consciousness: patient oriented x3 Resp: Effort & Inspection: normal respiratory effort GI: Inspection: No distended Palpation (GI): Soft to palpation, nontender and no guarding Percussion: Yes normal to percussion Skin: General skin exam: no rashes or lesions noted Neuro: General: patient oriented x3 Discharge Plan Discharge Anticipated Discharge Date/Time: 07/04/22 15:44 Patient Disposition: Home, Self-Care Discharge Diagnosis: Partial small bowel obstruction Referrals: Physician,Nonstaff [Primary Care Provider] - 1 Week Ming Elam MD [Physician] - 1 Week Discharge Medications: New cephalexin 500 mg capsule 500 mg PO QID 10 Days Qty: 40 0RF doxycycline hyclate 100 mg tablet 100 mg PO BID Qty: 20 0RF Continued sertraline 100 mg tablet 100 mg PO DAILY omeprazole 40 mg Capsule,Delayed Release(Dr/Ec) 40 mg PO DAILY No Action doxycycline hyclate 100 mg tablet 100 mg PO BID Qty: 20 0RF Discharge Orders: Discharge Order (Routine); Ordered 07/04/22 Ordered By: Ming Elam Diet: liquid diet, low fiber Activity on Discharge: As tolerated Stand Alone Forms: Patient Portal Discharge page Care Plan Goals: Return to normal activity and diet Health Concerns: Nausea and vomiting, abdominal pain Plan of Treatment: Bowel rest, nasogastric tube decompression Assessment: Partial small-bowel obstruction, resolved Discharge Date/Time: 07/04/22 16:30
== END 2022-07-04 16:30 | disposition home or self-care (01) | DRG 389 ==
LOC: HO.ED 21:45 → HO.EDOVER 22:01 → HO.S3 07-03 11:44
PROVIDERS: Internal Medicine; Physician Assistant; Admitting Provider Surgery; Emergency Provider Internal Medicine; Visit Provider Surgery
DX: K56.609 Unspecified intestinal obstruction, unspecified as to partial versus complete obstruction (principal); E87.20 Acidosis, unspecified; N17.9 Acute kidney failure, unspecified; E86.0 Dehydration; K21.9 Gastro-esophageal reflux disease without esophagitis; Z20.822 Contact with and (suspected) exposure to COVID-19; Z88.0 Allergy status to penicillin; Z88.8 Allergy status to other drugs, medicaments and biological substances; Z79.899 Other long term (current) drug therapy
CPT/HCPCS: 36415; 71045; 74176; 80048; 80076; 83605; 83690; 83735; 85025; 85027; 87040; 87502; 87635; 96361; 96374; 96375; 99285; J1170; J2270; J2405

== ENCOUNTER 2022-07-08 03:54 | Emergency (ER) | payer OTHER, SELFPAY ==
--- NOTE | ~2022-07-08 | XR_ITS ---
EXAMINATION: XR ELBOW, LEFT CLINICAL INFORMATION: Cellulitis COMPARISON: None TECHNIQUE: AP, lateral, and oblique views of the left elbow. FINDINGS: There is soft tissue swelling posterior to the olecranon, and subcutaneous fat stranding along the posterior elbow. No periosteal reaction or cortical destruction to suggest osteomyelitis. No fractures. No joint effusion. XR/XR elbow LT 2V IMPRESSION: * Soft tissue swelling posterior to the olecranon and subcutaneous fat stranding along the posterior elbow. Cellulitis complicated by olecranon bursitis is considered. * No radiographic evidence of osteomyelitis.
[2022-07-08 04:02] VITALS: BP 143/96; PULSE 71; RESP 16; TEMP 36.8; O2SAT 97; BMI 27.1
[2022-07-08 04:26] LABS: Basophils Absolute Auto 0.1 X10*3/uL (0.0-0.2); Eosinophils Absolute Auto 0.2 X10*3/uL (0.0-0.4); Eosinophils Percent Auto 2.6 % (0-4); Hemoglobin 12.9 g/dl (14.0-18.0); Imm Gran Abs Auto 0.02 X10*3/uL (0.00-0.03); Imm Gran Pct Auto 0.2 % (0.0-0.4); Lymphocytes Absolute Auto 2.5 X10*3/uL (1.2-4.9); Lymphocytes Percent Auto 30.1 % (20-40); MANUAL DIFF FLAG SCAN; Mean Corpuscular HGB Conc 33.1 g/dl (31.0-36.0); Mean Corpuscular Hemoglobin 28.7 pg (27.0-33.0); Mean Corpuscular Volume 86.7 fL (80.0-98.0); Mean Platelet Volume 9.9 fL (9.4-12.4); Monocytes Absolute Auto 0.7 X10*3/uL (0.1-1.2); Monocytes Percent Auto 7.8 % (2-11); Neutrophils Absolute Auto 4.9 x10*3/uL (2.0-8.3); Neutrophils Percent Auto 58.3 % (45-73); Platelet Count 241 X10*3/uL (160-400); Red Cell Distribution Width 12.1 % (11.0-16.0); SCAN SMEAR FLAG 1; White Blood Count 8.4 X10*3/uL (4.8-10.8)
[2022-07-08 04:35] LABS: Lactic Acid 0.6 mmol/L (0.5-2.0)
[2022-07-08 04:39] LABS: Anion Gap 14 (12-20); Blood Urea Nitrogen 18 mg/dL (9-16); Calcium 9.7 mg/dL (8.4-10.2); Carbon Dioxide 26 mmol/L (22-29); Chloride 102 mmol/L (96-108); Creatinine Clr Calc Pharmacy 102.4; Estimated Glomerular Filt Rate > 60; Glucose Random 101 mg/dL (60-115); Sodium 138 mmol/L (135-145)
[2022-07-08] MEDS: Doxycycline Monohydrate 100 MG CAPSULE PO (04:40)
[2022-07-08 04:45] LABS: SLIDE REVIEW VERIFIED
--- NOTE | 2022-07-08 04:50 | ED.SKABFB ---
HPI - Skin/Abscess/Foreign Bdy General Chief complaint: Skin/Abscess/Foreign Body Stated complaint: Infection? 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 Patient had recent IV access insertion and his left upper extremities. Full range of motion to the left elbow be, no recent trauma. Related Data Home Medications Medication Instructions Recorded Confirmed omeprazole 40 mg capsule,delayed 40 mg PO DAILY 07/02/22 07/02/22 release sertraline 100 mg tablet 100 mg PO DAILY 07/02/22 07/02/22 Previous Rx's Medication Instructions Recorded cephalexin 500 mg capsule 500 mg PO QID 10 days #40 caps 07/07/22 doxycycline hyclate 100 mg tablet 100 mg PO BID #20 tabs 07/07/22 doxycycline hyclate 100 mg tablet 100 mg PO BID #20 tabs 07/08/22 Allergies Allergy/AdvReac Type Severity Reaction Status Date / Time heparin Allergy Unknown Unknown Verified 07/02/22 19:21 Penicillins Allergy Unknown Unknown Verified 07/02/22 19:21 Review of Systems Review of Systems: All other systems are reviewed and are negative Constitutional: Reports as per HPI and Reports no additional constitutional complaints Eyes: Reports as per HPI and Reports no additional eye complaints Reports system reviewed and no additional complaints, except as documented Cardiovascular: Reports as per HPI and Reports no additional cardiovascular complaints Respiratory: Reports as per HPI and Reports no additional respiratory complaints Gastrointestinal: Reports as per HPI and Reports no additional gastrointestinal complaints Genitourinary: Reports no additional female genitourinary complaints Musculoskeletal: Reports no additional musculoskeletal complaints Skin/Breast: Reports system reviewed and no additional complaints, except as docu Psychiatric: Reports no additional psychiatric complaints Endocrine: Reports no additional endocrine complaints Hematologic/Lymphatic: Reports no additional hematologic/lymphatic complaints Allergic/Immunologic: Reports no additional allergic/immunologic complaints Reports system reviewed and no additional complaints, except as documented and Reports Abnormal speech present [facility] Social History Social History Household Members: Children Housing: Apartment Do you presently have visiting nurse or other home services: No Alcohol intake: unknown Patient Tobacco Use Status: Never used Tobacco Substance Use Type: Marijuana Advance Directives: No Advance Directives Information Provided: Yes service: No Current occupational status: employed Physical Exam Vital Signs: Vital Signs: Last Vital Signs Temp 98.3 F 07/08/22 04:02 Pulse 71 07/08/22 04:02 Resp 16 07/08/22 04:02 BP 143/96 H 07/08/22 04:02 Pulse Ox 97 07/08/22 04:02 O2 Del Method 07/08/22 04:02 BMI result Body Mass Index 27.1 Vital signs have been reviewed as appeared to be correct. Blood pressure normal. Heart rate normal. Respiration rate normal. Temperature normal. Oxygen saturation normal. Appearance: Alert. Oriented X3. No acute distress. Head: Normal external exam. Normocephalic. Atraumatic. No Veronica signs noted. No raccoon eyes noted Eyes: PERRLA. EOMI. Conjunctiva and sclera normal. Eyelids normal. ENT: TM's Normal. Pharynx normal. Uvula midline. Moist mucous membranes. No trismus noted. No drooling noted. No muffled voice noted. Neck: Normal inspection. Neck supple. FROM. No adenopathy. Thyroid Normal. No meningeal signs. No neck mass noted. CVS: Normal heart rate and rhythm. Heart sound normal. No murmurs noted. Pulses normal throughout. Respiratory: No respiratory distress. Painless inspiration. Breath sounds normal. No wheezes/rales/rhonchi noted. Chest nontender. No accessory muscle usage noted or decreased air movement noted. Abdomen: Soft and nontender. Bowel sounds normal in all 4 quadrants. No distention noted. No organomegaly noted. No visible injury noted. Back: No CVA tenderness. Full range of motion noted. Skin: Skin warm and dry. Normal skin color. Normal skin turgor. No rashes/lesions/lacerations noted. Extremities: Left elbow area of 7 x5 cm of redness, hotness, tenderness, no fluctuation, there is palpable ulnar bursa. Full range of motion, neurovascularly intact. Neuro: Oriented X 3. Cranial nerve exam: II-XII are grossly intact No motor deficit. No sensory deficit. Reflexes normal. Course Course Course Narrative: Left elbow cellulitis, no sepsis will start on doxycycline for 10 days. Medications Administered Discontinued Medications Generic Name Dose Route Start Last Admin Trade Name Felipe PRN Reason Stop Dose Admin Doxycycline Monohydrate 100 mg 07/08/22 04:05 07/08/22 04:40 Doxycycline Monohydrate 100 Mg Capsule PO 07/08/22 04:06 100 mg ONCE ONE Administration Medical Decision Making Differential Diagnosis Differential Diagnoses: The differential diagnosis associated with the presentation includes (Left elbow cellulitis, bursitis, fracture, dislocation.) Lab Data MDM Lab Attestation statement: I reviewed the patient's lab results. 07/08/22 04:21 07/08/22 04:21 Labs: Lab Results 07/08/22 07/08/22 07/08/22 Range/Units 04:21 04:21 04:21 WBC 8.4 (4.8-10.8) X10*3/uL RBC 4.50 L (4.60-5.80) X10*6/uL Hgb 12.9 L (14.0-18.0) g/dl Hct 39.0 L (42.0-52.0) % MCV 86.7 (80.0-98.0) fL MCH 28.7 (27.0-33.0) pg MCHC 33.1 (31.0-36.0) g/dl RDW 12.1 (11.0-16.0) % Plt Count 241 (160-400) X10*3/uL MPV 9.9 (9.4-12.4) fL Immature Gran % (Auto) 0.2 (0.0-0.4) % Neut % (Auto) 58.3 (45-73) % Lymph % (Auto) 30.1 (20-40) % [place] % (Auto) 7.8 (2-11) % Eos % (Auto) 2.6 (0-4) % Baso % (Auto) 1.0 (0-2) % Lymph # (Auto) 2.5 (1.2-4.9) X10*3/uL [place] # (Auto) 0.7 (0.1-1.2) X10*3/uL Eos # (Auto) 0.2 (0.0-0.4) X10*3/uL Baso # (Auto) 0.1 (0.0-0.2) X10*3/uL Abs Immat Gran (auto) 0.02 (0.00-0.03) X10*3/uL Absolute Neuts (auto) 4.9 (2.0-8.3) x10*3/uL Absolute Nucleated RBC 0.000 (0.0-0.012) X10*3/uL Nucleated RBC % (auto) 0.0 (0.0-0.2) /100WBC Smear Tech's Comments VERIFIED Sodium 138 (135-145) mmol/L Potassium 4.0 (3.3-5.1) mmol/L Chloride 102 (96-108) mmol/L Carbon Dioxide 26 (22-29) mmol/L Anion Gap 14 (12-20) BUN 18 H (9-16) mg/dL Creatinine 1.01 (0.5-1.4) mg/dL Estim Creat Clear Calc 102.4 Estimated GFR > 60 Random Glucose 101 (60-115) mg/dL Lactic Acid 0.6 (0.5-2.0) mmol/L Calcium 9.7 D (8.4-10.2) mg/dL Independent Interpretation I performed an independent interpretation of an: Plain X-Ray (Left elbow:* Soft tissue swelling posterior to the olecranon and subcutaneous fat stranding along the posterior elbow. Cellulitis complicated by olecranon bursitis is considered. * No radiographic evidence of osteomyelitis. ) Radiology Impression Discussion of test interpretation with radiology: I have reviewed the radiologist's reading. (* Soft tissue swelling posterior to the olecranon and subcutaneous fat stranding along the posterior elbow. Cellulitis complicated by olecranon bursitis is considered. * No radiographic evidence of osteomyelitis. ) Discharge Plan Discharge Clinical Impression: Cellulitis Patient Disposition: Home, Self-Care Instructions: Cellulitis (ED) Prescriptions: New doxycycline hyclate 100 mg tablet 100 mg PO BID Qty: 20 0RF No Action sertraline 100 mg tablet 100 mg PO DAILY omeprazole 40 mg Capsule,Delayed Release(Dr/Ec) 40 mg PO DAILY cephalexin 500 mg capsule 500 mg PO QID 10 Days Qty: 40 0RF doxycycline hyclate 100 mg tablet 100 mg PO BID Qty: 20 0RF
== END 2022-07-08 05:43 | disposition home or self-care (01) ==
PROVIDERS: Emergency Provider Emergency Medicine
DX: L03.114 Cellulitis of left upper limb (principal); M25.522 Pain in left elbow
CPT/HCPCS: 36415; 73070; 80048; 83605; 85025; 87040; 99282; 99283

== ENCOUNTER 2022-10-09 16:39 | Emergency (ER) | payer OTHER, SELFPAY ==
--- NOTE | 2022-10-09 | ECG_ITS ---
Test Reason : CHEST PAIN Blood Pressure : / mmHG Vent. Rate : 135 BPM Atrial Rate : 135 BPM P-R Int : 142 ms QRS Dur : 078 ms QT Int : 286 ms P-R-T Axes : 054 -11 034 degrees QTc Int : 429 ms Sinus tachycardia Otherwise normal ECG No previous ECGs available Referred By: Generic ED Physician Electronically Signed By:OMAR BERRIOS MD
--- NOTE | ~2022-10-09 | XR_ITS ---
EXAMINATION: XR CHEST CLINICAL INFORMATION: Chest pain COMPARISON: None available. TECHNIQUE: Frontal view of the chest was obtained. FINDINGS: No significant abnormality is noted involving the heart, lungs, mediastinum, bony thorax or soft tissues. XR/XR chest 1V IMPRESSION: Unremarkable chest examination.
[2022-10-09 16:51] VITALS: BP 149/99; PULSE 121; RESP 17; TEMP 36.8; O2SAT 97; BMI 29.8
--- NOTE | 2022-10-09 17:09 | ED_ITS ---
HPI - Chest Pain General Chief Complaint: Chest Pain <ANTONY Turner Last Filed: 10/12/22 08:57> Stated Complaint: chest pain <ATNONY Turner Last Filed: 10/12/22 08:57> Time Seen by Provider: 10/09/22 16:50 <ANTONY Turner Last Filed: 10/12/22 08:57> Source: patient and RN notes reviewed <ANTONY Turner Last Filed: 10/12/22 08:57> Mode of arrival: EMS <ANTONY Turner Last Filed: 10/12/22 08:57> Limitations: no limitations <ANTONY Turner Last Filed: 10/12/22 08:57> History of Present Illness HPI narrative: This is a 46-year-old male, with a past medical history of hypertension, small-bowel obstruction in June 2022 and alcohol abuse (last drank 3 years ago), who presents to the emergency department with complaints of acute chest pain which occurred just after taking a 100mg marijuana edible today. Patient reports that he suddenly developed left-sided chest pain describing his chest pain as a pressure-like pain that is constant and radiates down his left arm. He states that he had this chest pain for 2 hours prior to calling EMS. En route, he had received a dose of nitroglycerin after begging the building code administrator for it, and was starting to feel better shortly after. He denies any abdominal pain, nausea, or diarrhea. Denies fevers and chills. He admits that he has had many recent stressors, and attributes his anxiety being a contributing factor to his symptoms. No other complaints or concerns at this time. <ANTONY Turner Last Filed: 10/12/22 08:57> MD complaint: chest pain and chest heaviness <ANTONY Turner Last Filed: 10/12/22 08:57> Onset (ago): hour(s) <ANTONY Turner Last Filed: 10/12/22 08:57> Timing of current episode: constant <ANTONY Turner Last Filed: 10/12/22 08:57> Prior episodes: No <ANTONY Turner Last Filed: 10/12/22 08:57> Onset: associated with drug use <ANTONY Turner - Last Filed: 10/12/22 08:57> Pain location: left chest <ANTONY Turner - Last Filed: 10/12/22 08:57> Pain radiation: left arm and other (Past) <ANOTNY Turner Last Filed: 10/12/22 08:57> Severity: moderate <ANTONY Turner - Last Filed: 10/12/22 08:57> Quality: tightness, aching and heaviness <ANTONY Turner - Last Filed: 10/12/22 08:57> Relieving factors: nitroglycerin <ANTONY Turner - Last Filed: 10/12/22 08:57> Exacerbating factors: nothing <ANTONY Turner Last Filed: 10/12/22 08:57> Treatment prior to arrival: none <ANTONY Turner Last Filed: 10/12/22 08:57> Risk Factors Coronary artery disease risk factors: hypertension <ANTONY Turner Last Filed: 10/12/22 08:57> Thoracic aortic dissection risk factors: none <ANTONY Turner Last Filed: 10/12/22 08:57> Related Data Home Medications: Home Medications Medication Instructions Recorded Confirmed omeprazole 40 mg capsule,delayed 40 mg PO DAILY 07/02/22 07/02/22 release sertraline 100 mg tablet 100 mg PO DAILY 07/02/22 07/02/22 Previous Rx's Medication Instructions Recorded cephalexin 500 mg capsule 500 mg PO QID 10 days #40 caps 07/07/22 doxycycline hyclate 100 mg tablet 100 mg PO BID #20 tabs 07/07/22 doxycycline hyclate 100 mg tablet 100 mg PO BID #20 tabs 07/08/22 <ANTONY Turner Last Filed: 10/12/22 08:57> Allergies/Adverse Reactions: Allergies Allergy/AdvReac Type Severity Reaction Status Date / Time heparin Allergy Unknown Unknown Verified 07/02/22 19:21 Penicillins Allergy Unknown Unknown Verified 07/02/22 19:21 <ANTONY Turner Last Filed: 10/12/22 08:57> Review of Systems Review of Systems: Yes all other systems are reviewed and are negative <ANTONY Turner - Last Filed: 10/12/22 08:57> FOR[facility]LY [facility] Past Medical History Medical History: Medical History (Updated 10/10/22 @ 00:03 by Ar Ugalde) Acute renal failure (ARF) Small bowel obstruction <ANTONY Turner - Last Filed: 10/12/22 08:57> Social History Social History: Social History Household Members: Children Housing: Apartment Do you presently have visiting nurse or other home services: No Alcohol intake: unknown Patient Tobacco Use Status: Never used Tobacco Substance Use Type: Marijuana Advance Directives: No Advance Directives Information Provided: No service: No Current occupational status: employed <ANTONY Turner - Last Filed: 10/12/22 08:57> Physical Exam Vital Signs: Vital Signs: Last Vital Signs Temp 98.2 F 10/09/22 16:51 Pulse 104 H 10/09/22 18:07 Resp 20 10/09/22 18:07 BP 130/95 H 10/09/22 18:07 Pulse Ox 95 10/09/22 18:07 O2 Del Method Room Air 10/09/22 18:07 BMI result Body Mass Index 29.8 <ANTONY Turner - Last Filed: 10/12/22 08:57> Vital Signs: Last Vital Signs Temp 98.2 F 10/09/22 16:51 Pulse 104 H 10/09/22 18:07 Resp 20 10/09/22 18:07 BP 130/95 H 10/09/22 18:07 Pulse Ox 95 10/09/22 18:07 O2 Del Method Room Air 10/09/22 18:07 BMI result Body Mass Index 29.8 <ANTONY Osborne - Last Filed: 10/09/22 19:41> Appearance: Alert. Oriented X3. No acute distress. Eyes: Pupils equal, round and reactive to light. EOMI ENT: Pharynx normal. Dry mucus membranes. Neck: Normal inspection. Neck supple. CVS: Tachycardic and normal rhythm. Respiratory: No respiratory distress. Breath sounds normal. Lungs clear to auscultation bilaterally Abdomen: Soft and nontender. +BS x4 Skin: Skin warm and dry. Normal skin color. Normal skin turgor. No rashes. Extremities: No lower extremity edema. Neuro: Oriented X 3. No motor deficit. No sensory deficit. CN II-XII intact. <ANTONY Turner - Last Filed: 10/12/22 08:57> Course Reevaluation(s) Reevaluation #1: Patient re-evaluated, heart rate 106 beats per minute, patient reporting his chest pain has completely resolved with 1 L of IV fluids. He declined Ativan 1 mg per nurse. Awaiting chest x-ray report. Case signed out to Madelin Jiang PA-C. <ANTONY Turner - Last Filed: 10/12/22 08:57> Time: 18:02 <ANTONY Turner Last Filed: 10/12/22 08:57> Reevaluation #2: Patient tells me that he is feeling much better, chest pain-free. Reports that anxiety is likely contributing to all this. I did obtain a 2nd troponin and send it down to the lab, pending results. Plan is for patient to be discharged home. <ANTONY Osborne - Last Filed: 10/09/22 19:41> Time: 19:07 <ANTONY Osborne Last Filed: 10/09/22 19:41> Reevaluation #3: Patient's troponin increased however patient does not have chest pain or shortness of breath, story consistent with anxiety. I do not suspect ACS patient without significant risk factors. He tells me he is chest pain-free and just feels anxious. Declining to take Ativan as he tells me will make him very drowsy. Educated patient on diagnosis and treatment plan, answered all question, patient verbalizes understanding. At this time patient will be discharged home, advised to return with new or worsening symptoms. Educated on worrisome signs and symptoms and when to return. At this time I feel comfortable discharge home. <ANTONY Osborne Last Filed: 10/09/22 19:41> Time: 19:41 <ANTONY Osborne - Last Filed: 10/09/22 19:41> Medications Administered Discontinued Medications Generic Name Dose Route Start Last Admin Trade Name Freq PRN Reason Stop Dose Admin Sodium Chloride 1,000 mls @ 999 mls/hr 10/09/22 17:08 10/09/22 18:38 Ns IVCONT 10/09/22 18:08 Infused .Q1H1M ONE Infusion Lorazepam 1 mg 10/09/22 17:07 10/09/22 18:11 Lorazepam 2 Mg/Ml Vial IVPUSH 10/09/22 17:08 Not Given ONCE ONE <ANTONY Turner Last Filed: 10/12/22 08:57> Medications Administered Discontinued Medications Generic Name Dose Route Start Last Admin Trade Name Felipe PRN Reason Stop Dose Admin Sodium Chloride 1,000 mls @ 999 mls/hr 10/09/22 17:08 10/09/22 18:38 Ns IVCONT 10/09/22 18:08 Infused .Q1H1M ONE Infusion Lorazepam 1 mg 10/09/22 17:07 10/09/22 18:11 Lorazepam 2 Mg/Ml Vial IVPUSH 10/09/22 17:08 Not Given ONCE ONE <ANTONY Osborne Last Filed: 10/09/22 19:41> Medical Decision Making Medical Decision Making MDM Narrative: 46-year-old male, with a past medical history of hypertension, ETOH abuse, and bowel perforation, who presents to the emergency department today with complaints of chest pain which occurred after consuming a 100 mg marijuana edible. Patient reports he was experiencing this pain for 2 hours and decided to call EMS after the pain would not subside. He feels as though his heart is racing, has chest pressure that radiates down his left arm. Patient denies history of similar symptoms in the past. He admits to being under a significant amount stress and reports that this could be a component to his current symptoms. On examination, patient has non reproducible chest pain, and is tachycardic in the 130s. Patient mildly hypertensive at 149/99. Patient oxygen saturation 97% on RA, afebrile, with a RR of 17. At this time I suspect adverse drug reaction/anxiety, however will rule out cardiac etiology. Plan: Labs, chest x-ray, and EKG ordered. 1 L of IV fluids and Ativan 1mg ordered. <ANTONY Turner Last Filed: 10/12/22 08:57> Differential Diagnosis Differential Diagnoses: The differential diagnosis associated with the presentation includes <ANTONY Turner Filed: 10/12/22 08:57> ACS, PE, adverse drug reaction, pneumothorax, anxiety <ANTONY Turner - Last Filed: 10/12/22 08:57> Lab Data MDM Lab Attestation statement: I reviewed the patient's lab results. <ANTONY Turner - Last Filed: 08:57> Result Diagrams: 10/09/22 17:14 10/09/22 17:14 <ANTONY Turner - Last Filed: 10/12/22 08:57> Labs: Lab Results 10/09/22 10/09/22 10/09/22 Range/Units 17:14 17:14 17:14 WBC 5.5 (4.8-10.8) X10*3/uL RBC 4.71 (4.60-5.80) X10*6/uL Hgb 13.3 L (14.0-18.0) g/dl Hct 39.0 L (42.0-52.0) % MCV 82.8 (80.0-98.0) fL MCH 28.2 (27.0-33.0) pg MCHC 34.1 (31.0-36.0) g/dl RDW 12.9 (11.0-16.0) % Plt Count 217 (160-400) X10*3/uL MPV 9.6 (9.4-12.4) fL Immature Gran % (Auto) 0.5 H (0.0-0.4) % Neut % (Auto) 66.0 (45-73) % Lymph % (Auto) 24.9 (20-40) % [place] % (Auto) 5.5 (2-11) % Eos % (Auto) 1.6 (0-4) % Baso % (Auto) 1.5 (0-2) % Lymph # (Auto) 1.4 (1.2-4.9) X10*3/uL [place] # (Auto) 0.3 (0.1-1.2) X10*3/uL Eos # (Auto) 0.1 (0.0-0.4) X10*3/uL Baso # (Auto) 0.1 (0.0-0.2) X10*3/uL Abs Immat Gran (auto) 0.03 (0.00-0.03) X10*3/uL Absolute Neuts (auto) 3.6 (2.0-8.3) x10*3/uL Absolute Nucleated RBC 0.000 (0.0-0.012) X10*3/uL Nucleated RBC % (auto) 0.0 (0.0-0.2) /100WBC D-Dimer High Sensitivty NG/ML Sodium 135 (135-145) mmol/L Potassium 3.9 (3.3-5.1) mmol/L Chloride 103 (96-108) mmol/L Carbon Dioxide 23 (22-29) mmol/L Anion Gap 13 (12-20) BUN 19 H (9-16) mg/dL Creatinine 1.00 (0.5-1.4) mg/dL Estim Creat Clear Calc 115.3 Estimated GFR > 60 Random Glucose 132 H (60-115) mg/dL Calcium 8.7 D (8.4-10.2) mg/dL Magnesium 1.8 (1.6-2.6) mg/dL Total Bilirubin 0.3 (0.0-1.0) mg/dL Direct Bilirubin 0.1 (0.0-0.5) mg/dL AST 18 (5-37) U/L ALT 15 (0-40) U/L Alkaline Phosphatase 54 (39-117) U/L Troponin I High Sens (<3.5-35.0) ng/L Total Protein 6.4 L (6.5-8.0) g/dL Albumin 4.0 (3.5-5.0) g/dL Ethyl Alcohol mg/dL Influenza Type A (PCR) NEGATIVE (Negative) Influenza Type B (PCR) NEGATIVE (Negative) RSV RNA Qual (PCR) NEGATIVE (Negative) SARS-CoV-2 RNA (RT-PCR) NEGATIVE (Negative) 10/09/22 10/09/22 10/09/22 Range/Units 17:14 17:14 17:14 WBC (4.8-10.8) X10*3/uL RBC (4.60-5.80) X10*6/uL Hgb (14.0-18.0) g/dl Hct (42.0-52.0) % MCV (80.0-98.0) fL MCH (27.0-33.0) pg MCHC (31.0-36.0) g/dl RDW (11.0-16.0) % Plt Count (160-400) X10*3/uL MPV (9.4-12.4) fL Immature Gran % (Auto) (0.0-0.4) % Neut % (Auto) (45-73) % Lymph % (Auto) (20-40) % [place] % (Auto) (2-11) % Eos % (Auto) (0-4) % Baso % (Auto) (0-2) % Lymph # (Auto) (1.2-4.9) X10*3/uL [place] # (Auto) (0.1-1.2) X10*3/uL Eos # (Auto) (0.0-0.4) X10*3/uL Baso # (Auto) (0.0-0.2) X10*3/uL Abs Immat Gran (auto) (0.00-0.03) X10*3/uL Absolute Neuts (auto) (2.0-8.3) x10*3/uL Absolute Nucleated RBC (0.0-0.012) X10*3/uL Nucleated RBC % (auto) (0.0-0.2) /100WBC D-Dimer High Sensitivty < 150 NG/ML Sodium (135-145) mmol/L Potassium (3.3-5.1) mmol/L Chloride (96-108) mmol/L Carbon Dioxide (22-29) mmol/L Anion Gap (12-20) BUN (9-16) mg/dL Creatinine (0.5-1.4) mg/dL Estim Creat Clear Calc Estimated GFR Random Glucose (60-115) mg/dL Calcium (8.4-10.2) mg/dL Magnesium (1.6-2.6) mg/dL Total Bilirubin (0.0-1.0) mg/dL Direct Bilirubin (0.0-0.5) mg/dL AST (5-37) U/L ALT (0-40) U/L Alkaline Phosphatase (39-117) U/L Troponin I High Sens < 2.7 (<3.5-35.0) ng/L Total Protein (6.5-8.0) g/dL Albumin (3.5-5.0) g/dL Ethyl Alcohol < 10 mg/dL Influenza Type A (PCR) (Negative) Influenza Type B (PCR) (Negative) RSV RNA Qual (PCR) (Negative) SARS-CoV-2 RNA (RT-PCR) (Negative) 10/09/22 Range/Units 19:05 WBC (4.8-10.8) X10*3/uL RBC (4.60-5.80) X10*6/uL Hgb (14.0-18.0) g/dl Hct (42.0-52.0) % MCV (80.0-98.0) fL MCH (27.0-33.0) pg MCHC (31.0-36.0) g/dl RDW (11.0-16.0) % Plt Count (160-400) X10*3/uL MPV (9.4-12.4) fL Immature Gran % (Auto) (0.0-0.4) % Neut % (Auto) (45-73) % Lymph % (Auto) (20-40) % [place] % (Auto) (2-11) % Eos % (Auto) (0-4) % Baso % (Auto) (0-2) % Lymph # (Auto) (1.2-4.9) X10*3/uL [place] # (Auto) (0.1-1.2) X10*3/uL Eos # (Auto) (0.0-0.4) X10*3/uL Baso # (Auto) (0.0-0.2) X10*3/uL Abs Immat Gran (auto) (0.00-0.03) X10*3/uL Absolute Neuts (auto) (2.0-8.3) x10*3/uL Absolute Nucleated RBC (0.0-0.012) X10*3/uL Nucleated RBC % (auto) (0.0-0.2) /100WBC D-Dimer High Sensitivty NG/ML Sodium (135-145) mmol/L Potassium (3.3-5.1) mmol/L Chloride (96-108) mmol/L Carbon Dioxide (22-29) mmol/L Anion Gap (12-20) BUN (9-16) mg/dL Creatinine (0.5-1.4) mg/dL Estim Creat Clear Calc Estimated GFR Random Glucose (60-115) mg/dL Calcium (8.4-10.2) mg/dL Magnesium (1.6-2.6) mg/dL Total Bilirubin (0.0-1.0) mg/dL Direct Bilirubin (0.0-0.5) mg/dL AST (5-37) U/L ALT (0-40) U/L Alkaline Phosphatase (39-117) U/L Troponin I High Sens 4.7 D (<3.5-35.0) ng/L Total Protein (6.5-8.0) g/dL Albumin (3.5-5.0) g/dL Ethyl Alcohol mg/dL Influenza Type A (PCR) (Negative) Influenza Type B (PCR) (Negative) RSV RNA Qual (PCR) (Negative) SARS-CoV-2 RNA (RT-PCR) (Negative) <ANTONY Turner - Last Filed: 10/12/22 08:57> Lab Results 10/09/22 10/09/22 10/09/22 Range/Units 17:14 17:14 17:14 WBC 5.5 (4.8-10.8) X10*3/uL RBC 4.71 (4.60-5.80) X10*6/uL Hgb 13.3 L (14.0-18.0) g/dl Hct 39.0 L (42.0-52.0) % MCV 82.8 (80.0-98.0) fL MCH 28.2 (27.0-33.0) pg MCHC 34.1 (31.0-36.0) g/dl RDW 12.9 (11.0-16.0) % Plt Count 217 (160-400) X10*3/uL MPV 9.6 (9.4-12.4) fL Immature Gran % (Auto) 0.5 H (0.0-0.4) % Neut % (Auto) 66.0 (45-73) % Lymph % (Auto) 24.9 (20-40) % [place] % (Auto) 5.5 (2-11) % Eos % (Auto) 1.6 (0-4) % Baso % (Auto) 1.5 (0-2) % Lymph # (Auto) 1.4 (1.2-4.9) X10*3/uL [place] # (Auto) 0.3 (0.1-1.2) X10*3/uL Eos # (Auto) 0.1 (0.0-0.4) X10*3/uL Baso # (Auto) 0.1 (0.0-0.2) X10*3/uL Abs Immat Gran (auto) 0.03 (0.00-0.03) X10*3/uL Absolute Neuts (auto) 3.6 (2.0-8.3) x10*3/uL Absolute Nucleated RBC 0.000 (0.0-0.012) X10*3/uL Nucleated RBC % (auto) 0.0 (0.0-0.2) /100WBC D-Dimer High Sensitivty NG/ML Sodium 135 (135-145) mmol/L Potassium 3.9 (3.3-5.1) mmol/L Chloride 103 (96-108) mmol/L Carbon Dioxide 23 (22-29) mmol/L Anion Gap 13 (12-20) BUN 19 H (9-16) mg/dL Creatinine 1.00 (0.5-1.4) mg/dL Estim Creat Clear Calc 115.3 Estimated GFR > 60 Random Glucose 132 H (60-115) mg/dL Calcium 8.7 D (8.4-10.2) mg/dL Magnesium 1.8 (1.6-2.6) mg/dL Total Bilirubin 0.3 (0.0-1.0) mg/dL Direct Bilirubin 0.1 (0.0-0.5) mg/dL AST 18 (5-37) U/L ALT 15 (0-40) U/L Alkaline Phosphatase 54 (39-117) U/L Troponin I High Sens (<3.5-35.0) ng/L Total Protein 6.4 L (6.5-8.0) g/dL Albumin 4.0 (3.5-5.0) g/dL Ethyl Alcohol mg/dL Influenza Type A (PCR) NEGATIVE (Negative) Influenza Type B (PCR) NEGATIVE (Negative) RSV RNA Qual (PCR) NEGATIVE (Negative) SARS-CoV-2 RNA (RT-PCR) NEGATIVE (Negative) 10/09/22 10/09/22 10/09/22 Range/Units 17:14 17:14 17:14 WBC (4.8-10.8) X10*3/uL RBC (4.60-5.80) X10*6/uL Hgb (14.0-18.0) g/dl Hct (42.0-52.0) % MCV (80.0-98.0) fL MCH (27.0-33.0) pg MCHC (31.0-36.0) g/dl RDW (11.0-16.0) % Plt Count (160-400) X10*3/uL MPV (9.4-12.4) fL Immature Gran % (Auto) (0.0-0.4) % Neut % (Auto) (45-73) % Lymph % (Auto) (20-40) % [place] % (Auto) (2-11) % Eos % (Auto) (0-4) % Baso % (Auto) (0-2) % Lymph # (Auto) (1.2-4.9) X10*3/uL [place] # (Auto) (0.1-1.2) X10*3/uL Eos # (Auto) (0.0-0.4) X10*3/uL Baso # (Auto) (0.0-0.2) X10*3/uL Abs Immat Gran (auto) (0.00-0.03) X10*3/uL Absolute Neuts (auto) (2.0-8.3) x10*3/uL Absolute Nucleated RBC (0.0-0.012) X10*3/uL Nucleated RBC % (auto) (0.0-0.2) /100WBC D-Dimer High Sensitivty < 150 NG/ML Sodium (135-145) mmol/L Potassium (3.3-5.1) mmol/L Chloride (96-108) mmol/L Carbon Dioxide (22-29) mmol/L Anion Gap (12-20) BUN (9-16) mg/dL Creatinine (0.5-1.4) mg/dL Estim Creat Clear Calc Estimated GFR Random Glucose (60-115) mg/dL Calcium (8.4-10.2) mg/dL Magnesium (1.6-2.6) mg/dL Total Bilirubin (0.0-1.0) mg/dL Direct Bilirubin (0.0-0.5) mg/dL AST (5-37) U/L ALT (0-40) U/L Alkaline Phosphatase (39-117) U/L Troponin I High Sens < 2.7 (<3.5-35.0) ng/L Total Protein (6.5-8.0) g/dL Albumin (3.5-5.0) g/dL Ethyl Alcohol < 10 mg/dL Influenza Type A (PCR) (Negative) Influenza Type B (PCR) (Negative) RSV RNA Qual (PCR) (Negative) SARS-CoV-2 RNA (RT-PCR) (Negative) 10/09/22 Range/Units 19:05 WBC (4.8-10.8) X10*3/uL RBC (4.60-5.80) X10*6/uL Hgb (14.0-18.0) g/dl Hct (42.0-52.0) % MCV (80.0-98.0) fL MCH (27.0-33.0) pg MCHC (31.0-36.0) g/dl RDW (11.0-16.0) % Plt Count (160-400) X10*3/uL MPV (9.4-12.4) fL Immature Gran % (Auto) (0.0-0.4) % Neut % (Auto) (45-73) % Lymph % (Auto) (20-40) % [place] % (Auto) (2-11) % Eos % (Auto) (0-4) % Baso % (Auto) (0-2) % Lymph # (Auto) (1.2-4.9) X10*3/uL [place] # (Auto) (0.1-1.2) X10*3/uL Eos # (Auto) (0.0-0.4) X10*3/uL Baso # (Auto) (0.0-0.2) X10*3/uL Abs Immat Gran (auto) (0.00-0.03) X10*3/uL Absolute Neuts (auto) (2.0-8.3) x10*3/uL Absolute Nucleated RBC (0.0-0.012) X10*3/uL Nucleated RBC % (auto) (0.0-0.2) /100WBC D-Dimer High Sensitivty NG/ML Sodium (135-145) mmol/L Potassium (3.3-5.1) mmol/L Chloride (96-108) mmol/L Carbon Dioxide (22-29) mmol/L Anion Gap (12-20) BUN (9-16) mg/dL Creatinine (0.5-1.4) mg/dL Estim Creat Clear Calc Estimated GFR Random Glucose (60-115) mg/dL Calcium (8.4-10.2) mg/dL Magnesium (1.6-2.6) mg/dL Total Bilirubin (0.0-1.0) mg/dL Direct Bilirubin (0.0-0.5) mg/dL AST (5-37) U/L ALT (0-40) U/L Alkaline Phosphatase (39-117) U/L Troponin I High Sens 4.7 D (<3.5-35.0) ng/L Total Protein (6.5-8.0) g/dL Albumin (3.5-5.0) g/dL Ethyl Alcohol mg/dL Influenza Type A (PCR) (Negative) Influenza Type B (PCR) (Negative) RSV RNA Qual (PCR) (Negative) SARS-CoV-2 RNA (RT-PCR) (Negative) <ANTONY Osborne Last Filed: 10/09/22 19:41> Independent Interpretation I performed an independent interpretation of an: EKG and Plain X-Ray <ANTONY Turner Last Filed: 10/12/22 08:57> Interpretation: EKG sinus tachycardia at a ventricular rate of 135 beats per minute, TN interval 142, QTC 429. No ST elevations or depressions, no acute ischemic changes. <ANTONY Turner Last Filed: 10/12/22 08:57> Critical Care Time Critical Care Time Critical Care Time: No <ANTONY Osborne Last Filed: 10/09/22 19:41> Discharge Plan Discharge Clinical Impression: Anxiety, Chest pain <ANTONY Turner - Last Filed: 10/12/22 08:57> Patient Disposition: Home, Self-Care <ANTONY Turner - Last Filed: 10/12/22 08:57> Instructions: Anxiety (ED) <ANTONY Turner Last Filed: 10/12/22 08:57> Additional Instructions: Avoid marijuana edibles as this can cause you to have the symptoms you had today. Stay hydrated and get plenty of rest. Follow up with your primary care physician. If any new or worsening symptoms occur, please return for re-evaluation. <ANTONY Turner Last Filed: 10/12/22 08:57> Prescriptions: No Action doxycycline hyclate 100 mg tablet 100 mg PO BID Qty: 20 0RF sertraline 100 mg tablet 100 mg PO DAILY omeprazole 40 mg Capsule,Delayed Release(Dr/Ec) 40 mg PO DAILY cephalexin 500 mg capsule 500 mg PO QID 10 Days Qty: 40 0RF doxycycline hyclate 100 mg tablet 100 mg PO BID Qty: 20 0RF <ANTONY Turner - Last Filed: 10/12/22 08:57> Referrals: [facility] [place] Cardiovascular Services [Provider Group] - 1 week Physician,Unknown J [Primary Care Provider] - 2 days <ANTONY Turner - Last Filed: 10/12/22 08:57> Interventions: ED Discharge Assessment Last Done: 10/09/22 19:54 <ANTONY Turner Last Filed: 10/12/22 08:57> Discharge Date/Time: 10/09/22 19:55 <ANTONY Turner Last Filed: 10/12/22 08:57>
[2022-10-09 17:20] LABS: MANUAL DIFF FLAG NO
[2022-10-09 17:22] LABS: Basophils Absolute Auto 0.1 X10*3/uL (0.0-0.2); Basophils Percent Auto 1.5 % (0-2); Eosinophils Absolute Auto 0.1 X10*3/uL (0.0-0.4); Eosinophils Percent Auto 1.6 % (0-4); Hemoglobin 13.3 g/dl (14.0-18.0); Imm Gran Abs Auto 0.03 X10*3/uL (0.00-0.03); Imm Gran Pct Auto 0.5 % (0.0-0.4); Lymphocytes Absolute Auto 1.4 X10*3/uL (1.2-4.9); Lymphocytes Percent Auto 24.9 % (20-40); Mean Corpuscular HGB Conc 34.1 g/dl (31.0-36.0); Mean Corpuscular Hemoglobin 28.2 pg (27.0-33.0); Mean Corpuscular Volume 82.8 fL (80.0-98.0); Mean Platelet Volume 9.6 fL (9.4-12.4); Monocytes Absolute Auto 0.3 X10*3/uL (0.1-1.2); Monocytes Percent Auto 5.5 % (2-11); Neutrophils Absolute Auto 3.6 x10*3/uL (2.0-8.3); Platelet Count 217 X10*3/uL (160-400); Red Blood Count 4.71 X10*6/uL (4.60-5.80); Red Cell Distribution Width 12.9 % (11.0-16.0); White Blood Count 5.5 X10*3/uL (4.8-10.8)
--- NOTE | 2022-10-09 17:23 | PC.NURSE ---
pt changed over to hospital attire, youth nutritional monitor applied, labs obtained- pt speaking in full sentances sts that his mouth feels very dry s/p nitro 0.4- ice chips given
[2022-10-09] MEDS: 0.9 % Sodium Chloride 1,000 ML 999 ML IVCONT (17:28)
--- NOTE | 2022-10-09 17:38 | PC.NURSE ---
1L 0.9% ns infusing via 20g iv in left hand- pt does not wish to receive ativan at this time- sts he would like to see how he feels after the fluids, sts his symptoms are improving- WCTM
[2022-10-09 17:41] LABS: Alanine Aminotransferase 15 U/L (0-40); Alkaline Phosphatase 54 U/L (39-117); Anion Gap 13 (12-20); Aspartate Amino Transferase 18 U/L (5-37); Bilirubin Direct 0.1 mg/dL (0.0-0.5); Bilirubin Total 0.3 mg/dL (0.0-1.0); Blood Urea Nitrogen 19 mg/dL (9-16); Calcium 8.7 mg/dL (8.4-10.2); Carbon Dioxide 23 mmol/L (22-29); Chloride 103 mmol/L (96-108); Creatinine Clr Calc Pharmacy 115.3; Estimated Glomerular Filt Rate > 60; Glucose Random 132 mg/dL (60-115); Magnesium 1.8 mg/dL (1.6-2.6); Potassium 3.9 mmol/L (3.3-5.1); Sodium 135 mmol/L (135-145); Total Protein 6.4 g/dL (6.5-8.0)
[2022-10-09 17:43] LABS: Ethanol < 10 mg/dL
[2022-10-09 17:44] VITALS: PULSE 100
[2022-10-09 17:47] LABS: D Dimer High Sensitivity < 150 NG/ML
[2022-10-09 17:50] LABS: Troponin-I High Sensitivity < 2.7 ng/L (<3.5-35.0)
[2022-10-09 18:07] VITALS: BP 130/95; PULSE 104; RESP 20; O2SAT 95
[2022-10-09 18:59] LABS: Influenza A PCR NEGATIVE (Negative); Influenza B PCR NEGATIVE (Negative); Resp Syncy Virus RNA Qual PCR NEGATIVE (Negative); SARS COV2 PCR INHOUSE NEGATIVE (Negative)
[2022-10-09 19:29] LABS: Troponin-I High Sensitivity 4.7 ng/L (<3.5-35.0)
--- NOTE | 2022-10-09 19:52 | PC.NURSE ---
rounded with pt, currently reporting 0/10 pain- provider aware- pt is to be discharged home
== END 2022-10-09 19:55 | disposition home or self-care (01) ==
PROVIDERS: Physician Assistant; Physician Assistant Medical; Emergency Provider Emergency Medicine
DX: R07.9 Chest pain, unspecified (principal); F41.9 Anxiety disorder, unspecified; I10 Essential (primary) hypertension; Z20.822 Contact with and (suspected) exposure to COVID-19
CPT/HCPCS: 0241U; 36415; 71045; 80048; 80076; 82077; 83735; 84484; 85025; 85379; 93005; 96360; 99284

== ENCOUNTER 2023-09-19 21:02 | Inpatient (IN) | payer OTHER, SELFPAY ==
[2023-09-19 21:19] VITALS: BP 173/119; PULSE 140; RESP 18; TEMP 37.2; O2SAT 96; BMI 29.0
--- NOTE | 2023-09-19 21:24 | ECG_ITS ---
Test Reason : COLONJL Blood Pressure : / mmHG Vent. Rate : 128 BPM Atrial Rate : 128 BPM P-R Int : 142 ms QRS Dur : 078 ms QT Int : 306 ms P-R-T Axes : 021 -47 055 degrees QTc Int : 446 ms Sinus tachycardia Left axis deviation cannot exclude old Inferior infarct , age undetermined ; could be normal variant Borderline ECG When compared with ECG of 09-OCT-2022 16:48, No significant changes seen Referred By: Generic ED Physician Electronically Signed By:NOLAN BASURTO
[2023-09-19 21:46] LABS: MANUAL DIFF FLAG NO
[2023-09-19 21:48] LABS: Basophils Absolute Auto 0.1 X10*3/uL (0.0-0.2); Lymphocytes Absolute Auto 2.5 X10*3/uL (1.2-4.9)
[2023-09-19 21:50] VITALS: BP 169/112; PULSE 120; RESP 16; TEMP 37.1; O2SAT 95
[2023-09-19 21:56] LABS: Basophils Percent Auto 1.2 % (0-2); Eosinophils Percent Auto 0.4 % (0-4); Hemoglobin 17.3 g/dl (14.0-18.0); Imm Gran Abs Auto 0.03 X10*3/uL (0.00-0.03); Imm Gran Pct Auto 0.4 % (0.0-0.4); Lymphocytes Percent Auto 30.8 % (20-40); Mean Corpuscular HGB Conc 35.3 g/dl (31.0-36.0); Mean Corpuscular Hemoglobin 28.6 pg (27.0-33.0); Mean Platelet Volume 8.6 fL (9.4-12.4); Monocytes Absolute Auto 0.4 X10*3/uL (0.1-1.2); Monocytes Percent Auto 5.1 % (2-11); Neutrophils Percent Auto 62.1 % (45-73); Platelet Count 530 X10*3/uL (160-400); Red Blood Count 6.05 X10*6/uL (4.60-5.80); Red Cell Distribution Width 12.4 % (11.0-16.0)
[2023-09-19 22:03] LABS: Alanine Aminotransferase 17 U/L (0-40); Albumin Level 4.8 g/dL (3.5-5.0); Alkaline Phosphatase 86 U/L (39-117); Anion Gap 25 (12-20); Aspartate Amino Transferase 28 U/L (5-37); Bilirubin Total 0.4 mg/dL (0.0-1.0); Blood Urea Nitrogen 12 mg/dL (9-16); Calcium 9.6 mg/dL (8.4-10.2); Carbon Dioxide 18 mmol/L (22-29); Chloride 97 mmol/L (96-108); Creatinine Clr Calc Pharmacy 128.6; Estimated Glomerular Filt Rate > 60; Ethanol 320 mg/dL; Glucose Random 129 mg/dL (60-115); Potassium 4.9 mmol/L (3.3-5.1); Sodium 135 mmol/L (135-145); Total Protein 8.7 g/dL (6.5-8.0)
[2023-09-19 22:21] VITALS: BP 146/102; PULSE 128; RESP 20; O2SAT 94
[2023-09-19] MEDS: PHENobarbitaL sodium 130 MG/ML IM ONCE 361.4 MG IM (22:22)
[2023-09-19 23:04] VITALS: BP 145/106; PULSE 118; RESP 23; O2SAT 94
--- NOTE | 2023-09-19 23:32 | ED_ITS ---
HPI - General Adult General Chief complaint: General Medical Stated complaint: withdraw from alcohol Time Seen by Provider: 09/19/23 21:44 Source: patient Mode of arrival: ambulatory Limitations: no limitations History of Present Illness HPI narrative: Patient comes to the emergency room complaining of alcohol withdrawal symptoms. Patient states that 8 days ago, patient relapsed and started drinking alcohol after being 8 months sober. Patient drank heavily for 4 days, then stop drinking alcohol for 4 days. Patient states that he started having tachycardia, feeling very uncomfortable, like he was withdrawing of alcohol. Prior to arrival, patient drank half a bottle of wine to help his symptoms. Patient states that he has never had alcohol withdrawal seizures but he has withdrawn from alcohol multiple times. Related Data Home Medications Medication Instructions Recorded Confirmed omeprazole 40 mg capsule,delayed 40 mg PO DAILY 07/02/22 07/02/22 release sertraline 100 mg tablet 100 mg PO DAILY 07/02/22 07/02/22 Previous Rx's Medication Instructions Recorded cephalexin 500 mg capsule 500 mg PO QID 10 days #40 caps 07/07/22 doxycycline hyclate 100 mg tablet 100 mg PO BID #20 tabs 07/07/22 doxycycline hyclate 100 mg tablet 100 mg PO BID #20 tabs 07/08/22 Allergies Allergy/AdvReac Type Severity Reaction Status Date / Time heparin Allergy Unknown Unknown Verified 09/19/23 21:19 Penicillins Allergy Unknown Unknown Verified 09/19/23 21:19 Review of Systems 2 Review of Systems: Constitutional : No Weight loss, No Fever, No Chills, No Night Sweats, No Fatigue, No Malaise ENT/Mouth : No Hearing loss, No Ear Pain, No Nasal Congestion, No Sinus Pain, No Hoarseness, No sore throat, No Rhinorrhea, No Swallowing Difficulty Eyes: No Eye Pain, No Swelling, No Redness, No Foreign Body, No Discharge, No Vision Changes Cardiovascular : No Chest Pain, No SOB, No Dyspnea on Exertion, No Orthopnea, No Edema, No Palpitations Respiratory : No Cough, No Sputum, No Wheezing, No Smoke Exposure, No Dyspnea Gastrointestinal : No Nausea, No Vomiting, No Diarrhea, No Constipation, No abdominal Pain, No Hematochezia, No Melena Genitourinary : no irregular bleeding, No Dysuria, No Urinary Frequency, No Hematuria, No Urinary Incontinence, No Urgency, No Flank Pain, No Urinary Flow Changes, No Hesitancy Musculoskeletal : No joint pain, No Myalgias, No Joint Swelling Skin : No Skin Lesions, No rash Neuro : No Weakness, No Numbness, No Paresthesias, No Loss of Consciousness, No Dizziness, No Headache Psych : Complaining of alcohol withdrawal, no SI, no HI, admits to alcohol abuse Heme/Lymph: No Bruising, No Bleeding,No Lymphadenopathy Endocrine : No Polyuria, No Polydipsia, No Temperature Intolerance [facility] Past Medical History Medical History Alcohol abuse Acute renal failure (ARF) Small bowel obstruction Social History Social History Household Members: Children Housing: Apartment Do you presently have visiting nurse or other home services: No Alcohol intake: current Alcohol intake frequency: 3 or more drinks per day Patient Tobacco Use Status: Never used Tobacco Substance Use Type: Marijuana Advance Directives: Yes Advance Directives on File: Yes Advance Directives Date on File: 07/05/22 service: No Current occupational status: employed Physical Exam ED Vital Signs: Vital Signs - 24 hr 09/19/23 21:19 09/19/23 21:50 09/19/23 22:21 Temperature 98.9 F 98.8 F Pulse Rate 140 H 120 H 128 H Respiratory Rate 18 16 20 Blood Pressure 173/119 H 169/112 H 146/102 H Pulse Oximetry 96 95 94 Oxygen Delivery Method Room Air Room Air Room Air 09/19/23 23:04 Temperature Pulse Rate 118 H Respiratory Rate 23 H Blood Pressure 145/106 H Pulse Oximetry 94 Oxygen Delivery Method Room Air BMI result Body Mass Index 29.0 Const Other: Patient's blood pressure 173/119, heart rate 140 Appearance: Alert. Oriented X3. No acute distress. Eyes: Pupils equal, round and reactive to light. ENT: Pharynx normal. Neck: Normal inspection. Neck supple. No lymph nodes noted. No crepitus CVS: Normal heart rate and rhythm. Pulses normal. Normal S1 and S2 Respiratory: No respiratory distress. Breath sounds normal. No Wheezing. No rales Abdomen: Soft and nontender. No rigidity. No distention. Skin: Skin warm and dry. Normal skin color. Normal skin turgor. Extremities: No lower extremity edema. No Lacerations. No Rash Neuro: A bit jittery, Oriented X 3. No motor deficit. No sensory deficit. Moving all extremities. No slurred speech. CN 2 through 12 grossly intact Psych: calm, cooperative, normal affect Medications Administered Discontinued Medications Generic Name Dose Route Start Last Admin Trade Name Felipe PRN Reason Stop Dose Admin Phenobarbital Sodium 361.4 mg 09/19/23 22:30 09/19/23 22:22 Phenobarbital Sodium 130 Mg/Ml Im Once IM 09/19/23 22:31 361.4 mg ONCE ONE Administration Protocol Medical Decision Making Medical Decision Making [facility] Narrative: -patient states he feels better after drinking half a bottle of wine prior to arrival, patient came in with a blood pressure 173/119 with a heart rate of 140. Is likely that patient's heart rate and blood pressure was worse before he drank alcohol. -patient has clear signs of alcohol withdrawal. -my interpretation of EKG, sinus tachycardic, heart rate 128, no ST segment depression or elevation, no T-wave inversion, QTC 446 -patient's starting IV fluids, Zofran and phenobarb protocol -I discussed with the patient that to avoid any further worsening of symptoms or alcohol withdrawal seizures, admission is indicated, agrees with plan. -I discussed the patient with our hospitalist team, patient being admitted Differential Diagnosis Differential Diagnoses: The differential diagnosis associated with the presentation includes (Alcohol withdrawal, anxiety) Admission/Observation Consideration of admission/observation: Escalation of care including admission/observation considered Consult Healthcare Provider Management of the patient was discussed with: Hospitalist Lab Data [facility] Lab Attestation statement: I reviewed the patient's lab results. 09/19/23 21:43 09/19/23 21:43 Labs: Lab Results 09/19/23 Range/Units 21:43 WBC 8.0 (4.8-10.8) X10*3/uL RBC 6.05 H D (4.60-5.80) X10*6/uL Hgb 17.3 D (14.0-18.0) g/dl Hct 49.0 D (42.0-52.0) % MCV 81.0 (80.0-98.0) fL MCH 28.6 (27.0-33.0) pg MCHC 35.3 (31.0-36.0) g/dl RDW 12.4 (11.0-16.0) % Plt Count 530 H D (160-400) X10*3/uL MPV 8.6 L (9.4-12.4) fL Immature Gran % (Auto) 0.4 (0.0-0.4) % Neut % (Auto) 62.1 (45-73) % Lymph % (Auto) 30.8 (20-40) % [place] % (Auto) 5.1 (2-11) % Eos % (Auto) 0.4 (0-4) % Baso % (Auto) 1.2 (0-2) % Lymph # (Auto) 2.5 (1.2-4.9) X10*3/uL [place] # (Auto) 0.4 (0.1-1.2) X10*3/uL Eos # (Auto) 0.0 (0.0-0.4) X10*3/uL Baso # (Auto) 0.1 (0.0-0.2) X10*3/uL Abs Immat Gran (auto) 0.03 (0.00-0.03) X10*3/uL Absolute Neuts (auto) 5.0 (2.0-8.3) x10*3/uL Absolute Nucleated RBC 0.000 (0.0-0.012) X10*3/uL Nucleated RBC % (auto) 0.0 (0.0-0.2) /100WBC Sodium 135 (135-145) mmol/L Potassium 4.9 (3.3-5.1) mmol/L Chloride 97 (96-108) mmol/L Carbon Dioxide 18 L (22-29) mmol/L Anion Gap 25 H (12-20) BUN 12 (9-16) mg/dL Creatinine 0.85 (0.5-1.4) mg/dL Estim Creat Clear Calc 128.6 Estimated GFR > 60 Random Glucose 129 H (60-115) mg/dL Calcium 9.6 D (8.4-10.2) mg/dL Total Bilirubin 0.4 (0.0-1.0) mg/dL AST 28 (5-37) U/L ALT 17 (0-40) U/L Alkaline Phosphatase 86 (39-117) U/L Total Protein 8.7 H (6.5-8.0) g/dL Albumin 4.8 (3.5-5.0) g/dL Ethyl Alcohol 320 H* mg/dL Critical Care Time Critical Care Time Critical Care Time: Yes Total Critical Care Time: 60 Attestation: I have personally provided critical care time. Time includes review of lab data, radiology results, discussion with consultants, and monitoring for potential decompensation. Intervention performed as documented. Discharge Plan Discharge Clinical Impression: Alcohol withdrawal Patient Disposition: Admitted As Inpatient Prescriptions: No Action doxycycline hyclate 100 mg tablet 100 mg PO BID Qty: 20 0RF sertraline 100 mg tablet 100 mg PO DAILY omeprazole 40 mg Capsule,Delayed Release(Dr/Ec) 40 mg PO DAILY cephalexin 500 mg capsule 500 mg PO QID 10 Days Qty: 40 0RF doxycycline hyclate 100 mg tablet 100 mg PO BID Qty: 20 0RF
[2023-09-19] MEDS: Famotidine 20 MG TABLET PO (23:49)
[2023-09-19] MEDS: 0.9 % Sodium Chloride Flush 3 ML SYRINGE IVFLUSH (23:49)
[2023-09-19] MEDS: 0.9 % Sodium Chloride 1,000 ML 100 ML IVCONT (23:49)
--- NOTE | 2023-09-20 01:33 | PC.NURSE ---
pt presented to ED with relapse of alcohol for 8 days after 8 months of sobriety. Prior to arrival pt drank 1/2 bottle of wine . Alcohol level 320 on arrival. Pt has had withdraws in the past but never seizures. Pt will be admitted for Alcholol withdrawal and phenobarb protocol. CIWA 4 hours, tele, reg diet, addiction med consult . 20 in [facility].
--- NOTE | 2023-09-20 01:51 | P.HPHOSP_ITS ---
History of Present Illness Date of Service: 09/20/23 Attending physician on admission: Alondra Tomlin Chief Complaint: Alcohol withdrawal Pt is a 47-year-old male with a PMH significant for?HTN, SBO in 06/2022, and alcohol use disorder w/ hx of withdrawal who presents to the ED with?withdrawal symptoms. Pt states he has recently relapsed and been drinking for four days straight. Has been trying to wean himself from alcohol for the past 24-48 hours but has been having withdrawal symptoms: palpitations, N/V, diaphoresis, headache, and increased anxiety. Reports tremors are what wakes me up . Last drink was just prior to arriving to the hospital. Has a hx of two prior hospitalizations for alcohol withdrawal. Denies hx of seizures or auditory or visual hallucinations. No chest pain/pressure. Denies SOB. No F/C or abd pain. In the ED pt was tachycardic up to 140, tachypnic up to 23, and hypertensive up to 173/119. Labs were significant for ethyl alcohol levels of 320, otherwise grossly unremarkable. No leukocytosis. Stable H&H. No electrolyte abnormalities. Renal and hepatic function WNL. Pt was treated with phenobarb. Pt will be admitted to the hospital for treatment and further evaluation of acute alcohol withdrawal. Review of Systems 2 Review of Systems: N/V Palpitations Diaphoresis Headache Increased anxiety Tremors Denies auditory or visual hallucinations [facility] Medical History (Updated 09/20/23 @ 02:17 by ANTONY Howell) HTN (hypertension) Alcohol abuse Acute renal failure (ARF) Small bowel obstruction Social History Household Members: Children Housing: Apartment Do you presently have visiting nurse or other home services: No Alcohol intake: current Alcohol intake frequency: 3 or more drinks per day Patient Tobacco Use Status: Never used Tobacco Substance Use Type: Marijuana Advance Directives: Yes Advance Directives on File: Yes Advance Directives Date on File: 07/05/22 Nutrition Risks: No Nutritional Risk service: No Current occupational status: employed Meds Allergies Allergy/AdvReac Type Severity Reaction Status Date / Time heparin Allergy Unknown Unknown Verified 09/19/23 21:19 Penicillins Allergy Unknown Unknown Verified 09/19/23 21:19 Active Medications: Current Medications Acetaminophen (Acetaminophen 325 Mg Tablet) 650 mg PO Q6H PRN PRN Reason: Pain, Mild (Pain Scale 1-3) Benzonatate (Benzonatate 100 Mg Capsule) 100 mg PO TID PRN PRN Reason: Cough Docusate Sodium (Docusate Sodium 100 Mg Capsule) 100 mg PO DAILY PRN PRN Reason: Constipation Famotidine (Famotidine 20 Mg Tablet) 20 mg PO BID [facility] Last Admin: 09/19/23 23:49 Dose: 20 mg Folic Acid (Folic Acid 1 Mg Tablet) 1 mg PO DAILY [facility] Stop: 09/23/23 08:59 Sodium Chloride (Ns) 1,000 mls @ 100 mls/hr IVCONT .Q10H [facility] Last Admin: 09/19/23 23:49 Dose: 100 mls/hr Multivitamins/Vitamin C (Multivitamin Tablet) 1 tab PO DAILY [facility] Stop: 09/23/23 08:59 Ondansetron HCl (Ondansetron Hcl 4 Mg/2 Ml Vial) 4 mg IVPUSH Q8H PRN PRN Reason: Nausea and Vomiting Pharmacy Consult (Consult Rx Etoh Phenob Im/Po) 1 each MISCELLANE DAILY PRN; Protocol PRN Reason: Consult order Phenobarbital (Phenobarbital 30 Mg Tablet) 60 mg PO BID [facility]; Protocol Stop: 09/21/23 21:01 Phenobarbital (Phenobarbital 30 Mg Tablet) 30 mg PO BID [facility]; Protocol Stop: 09/23/23 21:01 Phenobarbital (Phenobarbital 30 Mg Tablet) 30 mg PO DAILY [facility]; Protocol Stop: 09/25/23 09:01 Phenobarbital Sodium (Phenobarbital Sodium 130 Mg/Ml Vial Im Q3hx2) 273 mg IM Q3H [facility]; Protocol Stop: 09/20/23 05:31 Sodium Chloride (0.9 % Sodium Chloride Flush 3 Ml Syringe) 3 ml IVFLUSH QSHIFT [facility] Last Admin: 09/19/23 23:49 Dose: 3 ml Thiamine HCl (Thiamine Hcl 100 Mg Tablet) 100 mg PO DAILY [facility] Stop: 09/23/23 08:59 Home Medications Medication Instructions Recorded Confirmed Last Taken Type omeprazole 40 mg capsule,delayed 40 mg PO DAILY 07/02/22 07/02/22 07/02/22 History release sertraline 100 mg tablet 100 mg PO DAILY 07/02/22 07/02/22 07/02/22 History Physical Exam 2 Vital Signs and Narrative: Vital Signs: Last Vital Signs Temp 98.8 F 09/19/23 21:50 Pulse 118 H 09/19/23 23:04 Resp 23 H 09/19/23 23:04 BP 145/106 H 09/19/23 23:04 Pulse Ox 94 09/19/23 23:04 O2 Del Method Room Air 09/19/23 23:04 BMI result Body Mass Index 29.0 General: AOx3, no acute distress Resp: CTA bilaterally CVS: S1, S2, tachy. No murmurs, rubs, or gallops GI: +BS, NT, no distention Skin: Warm, dry Neuro: Cranial nerves II-XII grossly intact bilaterally. Motor grossly intact bilaterally. Mild upper extremity tremors noted. No tongue fasciculations. Extremities: No edema Psych: Appropriate affect Results Labs 09/19/23 21:43 09/19/23 21:43 Labs: Laboratory Results - last 24 hr 09/19/23 21:43 MCV 81.0 MCH 28.6 MCHC 35.3 RDW 12.4 Plt Count 530 H D MPV 8.6 L Immature Gran % (Auto) 0.4 Neut % (Auto) 62.1 Lymph % (Auto) 30.8 [place] % (Auto) 5.1 Eos % (Auto) 0.4 Baso % (Auto) 1.2 Lymph # (Auto) 2.5 [place] # (Auto) 0.4 Eos # (Auto) 0.0 Baso # (Auto) 0.1 Abs Immat Gran (auto) 0.03 Absolute Neuts (auto) 5.0 Absolute Nucleated RBC 0.000 Nucleated RBC % (auto) 0.0 Anion Gap 25 H Estim Creat Clear Calc 128.6 Estimated GFR > 60 Random Glucose 129 H Calcium 9.6 D Total Bilirubin 0.4 AST 28 ALT 17 Alkaline Phosphatase 86 Total Protein 8.7 H Albumin 4.8 Ethyl Alcohol 320 H* Assessment and Plan (1) Alcohol withdrawal: Status: Acute Plan Pt is a 47-year-old male with a PMH significant for?HTN, SBO in 06/2022, and alcohol use disorder w/ hx of withdrawal who presents to the ED with?withdrawal symptoms. Pt will be admitted to the hospital for treatment and further evaluation of acute alcohol withdrawal. Alcohol withdrawal Mild shakiness, no hallucinations Started on phenobarb protocol, will continue Daily multivitamin, folic acid, Thiamine, Famotidine IVF, anti-emetics Follow lytes, Mag, BMP CIWA scale Addiction medicine consult Monitor on telemetry HTN Continue home meds Mood disorder Continue home meds Full Code Attending:?Dr. Rodney DVT Prophylaxis: Pneumatic boots due to heparin allergy Pt will require a hospitalization of at least two nights for treatment of?acute alcohol withdrawal. Pt will require hospitalization for administration of phenobarb protocol and close monitoring of labs and cardiac function. Quality Stroke Does the patient have a stroke diagnosis?: No VTE Prior VTE?: No VTE Risk Level:: Medical - moderate - high VTE Device Contraindication: Treatment Not Indicated VTE Drug Contraindication: N/A - Med Ordered
[2023-09-20 02:33] VITALS: BP 116/76; PULSE 120; RESP 23
[2023-09-20] MEDS: PHENobarbitaL sodium 130 MG/ML VIAL IM Q3Hx2 273 MG IM ×2 (02:34→04:46)
[2023-09-20 07:20] LABS: Anion Gap 21 (12-20); Blood Urea Nitrogen 13 mg/dL (9-16); Calcium 9.2 mg/dL (8.4-10.2); Carbon Dioxide 24 mmol/L (22-29); Chloride 97 mmol/L (96-108); Creatinine Clr Calc Pharmacy 112.7; Estimated Glomerular Filt Rate > 60; Glucose Random 83 mg/dL (60-115); Magnesium 1.8 mg/dL (1.6-2.6); Potassium 5.2 mmol/L (3.3-5.1); Sodium 137 mmol/L (135-145)
[2023-09-20 07:53] VITALS: BP 131/86; PULSE 122; RESP 20; TEMP 36.3; O2SAT 95
[2023-09-20] MEDS: Folic Acid 1 MG TABLET PO (09:16)
[2023-09-20] MEDS: Famotidine 20 MG TABLET PO ×2 (09:16→20:39)
[2023-09-20] MEDS: PHENobarbitaL 30 MG TABLET 60 MG PO ×2 (09:16→20:39)
[2023-09-20] MEDS: Thiamine HCL 100 MG TABLET PO (09:16)
[2023-09-20] MEDS: Multivitamin TABLET 1 TAB PO (09:16)
--- NOTE | 2023-09-20 09:16 | PHA.MEDREC ---
Pharmacy Consult ? Medication Reconciliation Pharmacy has completed the medication reconciliation.
[2023-09-20] MEDS: 0.9 % Sodium Chloride 1,000 ML 100 ML IVCONT ×2 (09:20→18:38)
[2023-09-20 10:56] VITALS: BP 138/86; PULSE 106; RESP 20; TEMP 36.2; O2SAT 95
--- NOTE | 2023-09-20 12:28 | P.PNIM_ITS ---
Subjective Subjective Date of Service: 09/20/23 Interval History: alcohol withdrawals Review of Systems seems tramulous somewhat anxious Physical Exam 2 Vital Signs: Vital Signs: Last Vital Signs Temp 97.1 F 09/20/23 10:56 Pulse 106 H 09/20/23 10:56 Resp 20 09/20/23 10:56 BP 138/86 09/20/23 10:56 Pulse Ox 95 09/20/23 10:56 O2 Del Method Room Air 09/20/23 10:56 BMI result Body Mass Index 29.0 Appearance: Alert.? Oriented X3.? tramulous ,anxious cvs: rrr, [id number] . res: clear to auscultation ,no rhonchii or wheezing abd: no rebound or guarding ,nt, bs present. ext pulses present , no cyanosis . neuro: axo3 , nonfocal. Objective Data Active Medications Acetaminophen (Acetaminophen 325 Mg Tablet) 650 mg PO Q6H PRN PRN Reason: Pain, Mild (Pain Scale 1-3) Benzonatate (Benzonatate 100 Mg Capsule) 100 mg PO TID PRN PRN Reason: Cough Docusate Sodium (Docusate Sodium 100 Mg Capsule) 100 mg PO DAILY PRN PRN Reason: Constipation Famotidine (Famotidine 20 Mg Tablet) 20 mg PO BID [facility] Last Admin: 09/20/23 09:16 Dose: 20 mg Documented By: NICOLAS Folic Acid (Folic Acid 1 Mg Tablet) 1 mg PO DAILY [facility] Stop: 09/23/23 08:59 Last Admin: 09/20/23 09:16 Dose: 1 mg Documented By: NICOLAS Sodium Chloride (Ns) 1,000 mls @ 100 mls/hr IVCONT .Q10H [facility] Last Admin: 09/20/23 09:20 Dose: 100 mls/hr Documented By: NICOLAS Multivitamins/Vitamin C (Multivitamin Tablet) 1 tab PO DAILY [facility] Stop: 09/23/23 08:59 Last Admin: 09/20/23 09:16 Dose: 1 tab Documented By: NICOLAS Ondansetron HCl (Ondansetron Hcl 4 Mg/2 Ml Vial) 4 mg IVPUSH Q8H PRN PRN Reason: Nausea and Vomiting Pharmacy Consult (Consult Rx Etoh Phenob Im/Po) 1 each MISCELLANE DAILY PRN; Protocol PRN Reason: Consult order Phenobarbital (Phenobarbital 30 Mg Tablet) 60 mg PO BID [facility]; Protocol Stop: 09/21/23 21:01 Last Admin: 09/20/23 09:16 Dose: 60 mg Documented By: NICOLAS Phenobarbital (Phenobarbital 30 Mg Tablet) 30 mg PO BID [facility]; Protocol Stop: 09/23/23 21:01 Phenobarbital (Phenobarbital 30 Mg Tablet) 30 mg PO DAILY [facility]; Protocol Stop: 09/25/23 09:01 Sodium Chloride (0.9 % Sodium Chloride Flush 3 Ml Syringe) 3 ml IVFLUSH QSHIFT [facility] Last Admin: 09/20/23 09:21 Dose: Not Given Documented By: NICOLAS Non-Admin Reason: IV Running Thiamine HCl (Thiamine Hcl 100 Mg Tablet) 100 mg PO DAILY [facility] Stop: 09/23/23 08:59 Last Admin: 09/20/23 09:16 Dose: 100 mg Documented By: NICOLAS Labs 09/19/23 21:43 09/20/23 06:15 Labs: Laboratory Results - last 24 hr 09/19/23 09/20/23 21:43 06:15 MCV 81.0 MCH 28.6 MCHC 35.3 RDW 12.4 Plt Count 530 H D MPV 8.6 L Immature Gran % (Auto) 0.4 Neut % (Auto) 62.1 Lymph % (Auto) 30.8 [place] % (Auto) 5.1 Eos % (Auto) 0.4 Baso % (Auto) 1.2 Lymph # (Auto) 2.5 [place] # (Auto) 0.4 Eos # (Auto) 0.0 Baso # (Auto) 0.1 Abs Immat Gran (auto) 0.03 Absolute Neuts (auto) 5.0 Absolute Nucleated RBC 0.000 Nucleated RBC % (auto) 0.0 Hold Purple Top SEE NOTE Anion Gap 25 H 21 H Estim Creat Clear Calc 128.6 112.7 Estimated GFR > 60 > 60 Random Glucose 129 H 83 Calcium 9.6 D 9.2 Magnesium 1.8 Total Bilirubin 0.4 AST 28 ALT 17 Alkaline Phosphatase 86 Total Protein 8.7 H Albumin 4.8 Ethyl Alcohol 320 H* Assessment and Plan (1) Alcohol withdrawal: Status: Acute Plan 47-year-old male with a PMH significant for?HTN, SBO in 06/2022, and alcohol use disorder w/ hx of withdrawal who presents to the ED with?withdrawal symptoms. Pt will be admitted to the hospital for treatment and further evaluation of acute alcohol withdrawal. Alcohol withdrawal Mild shakiness, no hallucinations cIWA scale3-4 Follow lytes, Mag, BMP Started on phenobarb protocol, multivitamin, folic acid, Thiamine, Famotidine,IVF, anti-emetics Addiction medicine consult HTN Continue home meds Mood disorder Continue home meds Full Code DVT Prophylaxis: Pneumatic boots due to heparin allergy ongoing hospitalization [facility] for treatment of?acute alcohol withdrawal,phenobarb protocol and close monitoring of labs and cardiac function. Quality Stroke Does the patient have a stroke diagnosis?: No VTE Prior VTE?: No VTE Risk Level:: Medical - moderate - high VTE Device Contraindication: Treatment Not Indicated VTE Drug Contraindication: N/A - Med Ordered
[2023-09-20] MEDS: Sodium Zirconium Cyclosilicate 5 GM POWD.PACK PO (13:35)
[2023-09-20] MEDS: Omeprazole 40 MG CAPSULE.DR PO (13:37)
--- NOTE | 2023-09-20 14:18 | MHC.CM.PN ---
Pt. is independent, HCP on file and confirmed: Vianey Vargas, PCP is: Melvina Yin at [facility]. Pt will get an Uber for transport home upon DC. CM to follow and assist as needed with DC planning.
[2023-09-20 15:44] VITALS: BP 138/90; PULSE 100; RESP 20; TEMP 36.1; O2SAT 96
--- NOTE | 2023-09-20 18:33 | P.CNPS_ITS ---
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 Patient is admitted for detox he was sober for 2 and half years there is a history of chronic anxiety , he denies any history of alexei. He was not on any psychiatric medications prior to admission he states he only been bingeing for a few days. No history of withdrawal seizures delirium treatment patient reportedly had only been severely been drinking the past 4-5 days Past Psychiatric History: See above Medical Evaluation Reviewed: Yes History of hypertension history of small-bowel obstruction [facility] Medical History (Updated 10/05/23 @ 00:09 by Hayder Cheung MD) HTN (hypertension) Alcohol abuse Acute renal failure (ARF) Small bowel obstruction Diagnostics Vital Signs (24Hr): Vital Signs - 24 hr 09/19/23 21:19 09/19/23 21:50 09/19/23 22:21 Temperature 98.9 F 98.8 F Pulse Rate 140 H 120 H 128 H Respiratory Rate 18 16 20 Blood Pressure 173/119 H 169/112 H 146/102 H Pulse Oximetry 96 95 94 Oxygen Delivery Method Room Air Room Air Room Air 09/19/23 23:04 09/20/23 02:33 09/20/23 07:53 Temperature 97.4 F Pulse Rate 118 H 120 H 122 H Respiratory Rate 23 H 23 H 20 Blood Pressure 145/106 H 116/76 131/86 Pulse Oximetry 94 95 Oxygen Delivery Method Room Air Room Air 09/20/23 10:56 09/20/23 15:44 Temperature 97.1 F 97.0 F Pulse Rate 106 H 100 Respiratory Rate 20 20 Blood Pressure 138/86 138/90 H Pulse Oximetry 95 96 Oxygen Delivery Method Room Air Room Air BMI result Body Mass Index 29.0 Labs 09/19/23 21:43 09/21/23 06:01 Labs: Laboratory Results - last 48 hr 09/19/23 09/20/23 21:43 06:15 WBC 8.0 RBC 6.05 H D Hgb 17.3 D Hct 49.0 D MCV 81.0 MCH 28.6 MCHC 35.3 RDW 12.4 Plt Count 530 H D MPV 8.6 L Immature Gran % (Auto) 0.4 Neut % (Auto) 62.1 Lymph % (Auto) 30.8 [place] % (Auto) 5.1 Eos % (Auto) 0.4 Baso % (Auto) 1.2 Lymph # (Auto) 2.5 [place] # (Auto) 0.4 Eos # (Auto) 0.0 Baso # (Auto) 0.1 Abs Immat Gran (auto) 0.03 Absolute Neuts (auto) 5.0 Absolute Nucleated RBC 0.000 Nucleated RBC % (auto) 0.0 Hold Purple Top SEE NOTE Sodium 135 137 Potassium 4.9 5.2 H Chloride 97 97 Carbon Dioxide 18 L 24 Anion Gap 25 H 21 H BUN 12 13 Creatinine 0.85 0.97 Estim Creat Clear Calc 128.6 112.7 Estimated GFR > 60 > 60 Random Glucose 129 H 83 Calcium 9.6 D 9.2 Magnesium 1.8 Total Bilirubin 0.4 AST 28 ALT 17 Alkaline Phosphatase 86 Total Protein 8.7 H Albumin 4.8 Ethyl Alcohol 320 H* Mental Status Exam Mental Status Exam Narrative: Patient is seen in his hospital room he is calm cooperative not tremulous or agitated. Mood is somewhat anxious he is quite agreeable to treatment and referrals. Denies ongoing history of depression reports ongoing anxiety and worry. Describes loneliness. No SI no hallucinations no delusional material he is asking for help with sobriety impulse control intact Medications Medications Current Medications Acetaminophen (Acetaminophen 325 Mg Tablet) 650 mg PO Q6H PRN PRN Reason: Pain, Mild (Pain Scale 1-3) Benzonatate (Benzonatate 100 Mg Capsule) 100 mg PO TID PRN PRN Reason: Cough Docusate Sodium (Docusate Sodium 100 Mg Capsule) 100 mg PO DAILY PRN PRN Reason: Constipation Famotidine (Famotidine 20 Mg Tablet) 20 mg PO BID [facility] Last Admin: 09/20/23 09:16 Dose: 20 mg Folic Acid (Folic Acid 1 Mg Tablet) 1 mg PO DAILY [facility] Stop: 09/23/23 08:59 Last Admin: 09/20/23 09:16 Dose: 1 mg Sodium Chloride (Ns) 1,000 mls @ 100 mls/hr IVCONT .Q10H [facility] Last Admin: 09/20/23 09:20 Dose: 100 mls/hr Multivitamins/Vitamin C (Multivitamin Tablet) 1 tab PO DAILY [facility] Stop: 09/23/23 08:59 Last Admin: 09/20/23 09:16 Dose: 1 tab Omeprazole (Omeprazole 40 Mg Capsule.Dr) 40 mg PO DAILY@0630 [facility] Last Admin: 09/20/23 13:37 Dose: 40 mg Ondansetron HCl (Ondansetron Hcl 4 Mg/2 Ml Vial) 4 mg IVPUSH Q8H PRN PRN Reason: Nausea and Vomiting Pharmacy Consult (Consult Rx Etoh Phenob Im/Po) 1 each MISCELLANE DAILY PRN; Protocol PRN Reason: Consult order Phenobarbital (Phenobarbital 30 Mg Tablet) 60 mg PO BID [facility]; Protocol Stop: 09/21/23 21:01 Last Admin: 09/20/23 09:16 Dose: 60 mg Phenobarbital (Phenobarbital 30 Mg Tablet) 30 mg PO BID [facility]; Protocol Stop: 09/23/23 21:01 Phenobarbital (Phenobarbital 30 Mg Tablet) 30 mg PO DAILY [facility]; Protocol Stop: 09/25/23 09:01 Sodium Chloride (0.9 % Sodium Chloride Flush 3 Ml Syringe) 3 ml IVFLUSH QSHIFT [facility] Last Admin: 09/20/23 17:12 Dose: Not Given Thiamine HCl (Thiamine Hcl 100 Mg Tablet) 100 mg PO DAILY [facility] Stop: 09/23/23 08:59 Last Admin: 09/20/23 09:16 Dose: 100 mg Allergies Allergies Allergy/AdvReac Type Severity Reaction Status Date / Time heparin Allergy Unknown Unknown Verified 09/19/23 21:19 Penicillins Allergy Unknown Unknown Verified 09/19/23 21:19 Assessment & Plan Assessment & Plan (1) Alcohol withdrawal: Status: Acute Code(s): F10.939 - Alcohol use, unspecified with withdrawal, unspecified (2) Generalized anxiety disorder: Status: Acute Code(s): F41.1 - Generalized anxiety disorder (3) Alcohol use disorder: Status: Acute Code(s): F10.90 - Alcohol use, unspecified, uncomplicated Plan Consider referral to [facility] or [facility]. Discussed option of naltrexone would consider Topamax for anxiety impulsivity Low-dose sertraline may be helpful for chronic anxiety. Total time managing care of this patient today _40___ minutes.
[2023-09-20 19:14] VITALS: BP 132/93; PULSE 92; RESP 20; TEMP 36.3; O2SAT 96
[2023-09-20] MEDS: Acetaminophen 325 MG TABLET 650 MG PO (20:41)
[2023-09-20 23:04] VITALS: BP 163/85; PULSE 78; RESP 20; TEMP 35.5; O2SAT 92
[2023-09-21 03:16] VITALS: BP 147/87; PULSE 82; RESP 20; TEMP 36.4; O2SAT 99
[2023-09-21] MEDS: Omeprazole 40 MG CAPSULE.DR PO (05:13)
[2023-09-21] MEDS: 0.9 % Sodium Chloride 1,000 ML 100 ML IVCONT (05:15)
[2023-09-21 07:01] LABS: Blood Urea Nitrogen 20 mg/dL (9-16); Calcium 9.2 mg/dL (8.4-10.2); Creatinine Clr Calc Pharmacy 116.3; Estimated Glomerular Filt Rate > 60; Glucose Random 92 mg/dL (60-115); Magnesium 1.8 mg/dL (1.6-2.6)
[2023-09-21 07:09] LABS: Anion Gap 12 (12-20); Carbon Dioxide 28 mmol/L (22-29); Chloride 102 mmol/L (96-108); Potassium 4.4 mmol/L (3.3-5.1); Sodium 138 mmol/L (135-145)
[2023-09-21 08:00] VITALS: BP 133/93; PULSE 87; RESP 16; TEMP 36.6; O2SAT 98
[2023-09-21] MEDS: Multivitamin TABLET 1 TAB PO (08:28)
[2023-09-21] MEDS: Famotidine 20 MG TABLET PO (08:28)
[2023-09-21] MEDS: Thiamine HCL 100 MG TABLET PO (08:28)
[2023-09-21] MEDS: Folic Acid 1 MG TABLET PO (08:28)
[2023-09-21] MEDS: Acetaminophen 325 MG TABLET 650 MG PO (08:28)
--- NOTE | 2023-09-21 10:23 | PM.DS ---
DS: Providers Provider Date of Service: 09/21/23 Date of admission: 09/19/23 23:11 Date of discharge: 09/21/23 Primary care physician: Unknown Physician Consults: 09/19/23 23:16 Addiction Medicine Routine Consulting Provider: Addiction Covering Reason for consultation: Alcohol withdrawal 09/20/23 09:04 Consult to Psychiatry Routine Consulting Provider: Psych Covering Reason for consultation: Depression Has provider been notified: No Attending physician on discharge: Nyla Randall Discharging clinician: Nyla Randall DS: Diagnosis Discharge Diagnosis (1) Alcohol withdrawal: Status: Acute DS: Summary Hospital Course Hospital Course: 47-year-old male with a PMH significant for?HTN, SBO in 06/2022, and alcohol use disorder w/ hx of withdrawal who presents to the ED with?withdrawal symptoms. Pt states he has recently relapsed and been drinking for four days straight. Has been trying to wean himself from alcohol for the past 24-48 hours but has been having withdrawal symptoms: palpitations, N/V, diaphoresis, headache, and increased anxiety. Reports tremors are what wakes me up . Last drink was just prior to arriving to the hospital. Has a hx of two prior hospitalizations for alcohol withdrawal. Denies hx of seizures or auditory or visual hallucinations. No chest pain/pressure. Denies SOB. No F/C or abd pain. In the ED pt was tachycardic up to 140, tachypnic up to 23, and hypertensive up to 173/119. Labs were significant for ethyl alcohol levels of 320, otherwise grossly unremarkable. No leukocytosis. Stable H&H. No electrolyte abnormalities. Renal and hepatic function WNL. Pt was treated with phenobarb. Pt will be admitted to the hospital for treatment and further evaluation of acute alcohol withdrawal. Hospital course: patient came with alcohol withdrawal symptoms -started on pheonbarbital and monitred with ciwa scale.patient seems to be improved with above supportive care . addiction saw patient-information given. follow up outpatient pcp. Time Attestation Total time managing care of this patient today: 35 mintues. Discharge Coordination Time (in mins): 35 min Quality: Safe Use of Opioids Does Pt have an Active Cancer Diagnosis on the Problem List?: No Quality: Stroke Does the patient have a stroke diagnosis?: No Physical Exam Vital Signs: Vital Signs: Last Vital Signs Temp 97.9 F 09/21/23 08:00 Pulse 87 09/21/23 08:00 Resp 16 09/21/23 08:00 BP 133/93 H 09/21/23 08:00 Pulse Ox 98 09/21/23 08:00 O2 Del Method Room Air 09/21/23 08:00 BMI result Body Mass Index 29.0 Appearance: Alert.? Oriented X3.? cvs: rrr, [id number] , no murmur res: clear to auscultation ,no rhonchii or wheezing abd: no rebound or guarding ,nt, bs present. ext pulses present , no cyanosis . neuro: axo3 , nonfocal. DS: Data Data Completed and Pending Labs on day of discharge: Laboratory Results - last 24 hr 09/21/23 06:01 Hold Purple Top SEE NOTE Sodium 138 Potassium 4.4 Chloride 102 Carbon Dioxide 28 Anion Gap 12 BUN 20 H Creatinine 0.94 Estim Creat Clear Calc 116.3 Estimated GFR > 60 Random Glucose 92 Calcium 9.2 Magnesium 1.8 Discharge Plan Discharge Anticipated Discharge Date/Time: 09/21/23 10:16 Patient Disposition: Home, Self-Care Discharge Diagnosis: alcohol withdrawals Referrals: Physician,Unknown J [Primary Care Provider] - 1 Week Discharge Medications: Continued omeprazole 40 mg Capsule,Delayed Release(Dr/Ec) 40 mg PO DAILY@0630 acetaminophen 500 mg Tablet 1,000 mg PO Q6H PRN (Reason: Pain) Discharge Orders: Discharge Order (Routine); Ordered 09/21/23 Ordered By: Nyla Randall Diet: Advance to usual diet Activity on Discharge: As tolerated Stand Alone Forms: Patient Portal Discharge page Care Plan Goals: patient came with alcohol withdrawal symptoms -started on pheonbarbital and monitred with ciwa scale.patient seems to be improved with above supportive care . addiction saw patient-information given. follow up outpatient pcp. Health Concerns: as above. Plan of Treatment: as above. Assessment: as above.
--- NOTE | 2023-09-21 10:27 | MHC.CM.PN ---
Pt had been medically cleared for DC, he will go home via private transport, self care.
--- NOTE | 2023-09-21 11:07 | MHC.RECOVRN ---
Met with pt in - after consult placed to Addiction Medicine for AUD/ Acute Withdrawl. Pt had presented to the ED from home reporting withdrawl symptoms. Upon evaluation, pt admitted for acute withdrawl and management. Pt sitting up in chair, eating breakfast, alert and oriented, smiling and speaking in clear/full sentences. Pt reports drinking 1-2 bottles of wine daily for 4 years, prior to that had a year sober, and reports heavy drinking since his early 30s (approx 15 years). Pt wants sobriety and tried on his own at home to decrease wine intake and detox and was unable to which brought him to ED. 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 Pt will see us in office September 22 at 2 pm for an intake, he was given a reminder card and our office pamphlets. Relayed this to his RN.
== END 2023-09-21 11:33 | disposition home or self-care (01) | DRG 897 ==
LOC: HO.ED 23:37 → HO.EDOVER 23:46 → HO.IMC 09-20 02:12
PROVIDERS: Admitting Provider Student in an Organized Health Care Education/Training Program; Emergency Provider Emergency Medicine; PCP Registered Nurse; Visit Provider Internal Medicine
DX: F10.139 Alcohol abuse with withdrawal, unspecified (principal); Y90.8 Blood alcohol level of 240 mg/100 ml or more; I10 Essential (primary) hypertension; F39 Unspecified mood [affective] disorder
CPT/HCPCS: 36415; 80048; 80053; 80307; 83735; 85025; 93005; 99285; J2560

== ENCOUNTER → 2023-09-19 21:24 | Outpatient (BNV) | payer OTHER, SELFPAY | PROVIDERS: Admitting Provider Student in an Organized Health Care Education/Training Program; Emergency Provider Emergency Medicine; Visit Provider Internal Medicine | DX: R00.0 Tachycardia, unspecified (principal); F10.939 Alcohol use, unspecified with withdrawal, unspecified | CPT/HCPCS: 93010 ==

== ENCOUNTER → 2023-09-19 23:11 | Outpatient (BNV) | payer OTHER, SELFPAY | PROVIDERS: Admitting Provider Student in an Organized Health Care Education/Training Program; Emergency Provider Emergency Medicine; Visit Provider Internal Medicine | DX: F10.939 Alcohol use, unspecified with withdrawal, unspecified (principal) | CPT/HCPCS: 99223; 99239; 99499 ==

== ENCOUNTER → 2023-09-19 23:11 | Outpatient (BNV) | payer OTHER, SELFPAY | PROVIDERS: Admitting Provider Student in an Organized Health Care Education/Training Program; Emergency Provider Emergency Medicine; PCP Registered Nurse; Visit Provider Psychiatry & Neurology Psychiatry | DX: F10.939 Alcohol use, unspecified with withdrawal, unspecified (principal); F41.1 Generalized anxiety disorder | CPT/HCPCS: 99222 ==

== ENCOUNTER 2024-02-11 13:13 | Inpatient (IN) | payer OTHER, SELFPAY ==
[2024-02-11] VITALS (7 sets, daily range): BP systolic 134–151; BP diastolic 88–110; PULSE 82–151; RESP 10–20; TEMP 36–37; O2SAT 90–96; BMI 30.1
--- NOTE | 2024-02-11 13:23 | ED.GENADULT ---
HPI - General Adult General Chief complaint: ETOH/Substance Use Stated complaint: withdrawal Time Seen by Provider: 02/11/24 13:33 Source: patient Mode of arrival: ambulatory Limitations: no limitations History of Present Illness ED Provider: [facility] narrative: Patient is a 48-year-old male with history of alcohol use disorder presenting to the emergency department for assistance with detox from alcohol. Patient reports that he went through detox 4 years ago and has been sober since with the exception 1 relapse in August of this year when he was admitted at this hospital. States he has tried going to AA in the past including a for healthcare providers but feels he is not able to relate to other members of the group and it is not beneficial for him. Today was trying to detox on his own by taking small sips of wine, but noted that he was tachycardic and was afraid to have a seizure because he has a son he is concerned about. Denies history of withdrawal seizures in the past. Denies current headache, describes only pressure, denies nausea or vomiting. MD complaint: alcohol withdrawal Onset (ago): hour(s) Related Data Home Medications ?Medication ?Instructions ?Recorded ?Confirmed omeprazole 40 mg capsule,delayed 40 mg PO DAILY@0630 07/02/22 09/20/23 release acetaminophen 500 mg tablet 1,000 mg PO Q6H PRN Pain 09/20/23 09/20/23 Allergies Allergy/AdvReac Type Severity Reaction Status Date / Time heparin Allergy Unknown Unknown Verified 02/11/24 13:27 Penicillins Allergy Unknown Unknown Verified 02/11/24 13:27 Review of Systems Review of Systems: As per HPI. Yes all other systems are reviewed and are negative Constitutional: Constitutional: Reports as per HPI [facility] Past Medical History Medical History (Updated 02/11/24 @ 14:41 by Barb Maher NP) HTN (hypertension) Alcohol abuse Acute renal failure (ARF) Small bowel obstruction Social History Social History Household Members: None Housing: Apartment Do you presently have visiting nurse or other home services: No Alcohol intake: current Alcohol intake frequency: 3 or more drinks per day Alcohol type: wine and hard liquor Patient Tobacco Use Status: Never used Tobacco Smoked in Last 30 Days: No Use of substances other than those prescribed or required for medical reasons: No Substance Use Type: Marijuana Advance Directives: Yes Advance Directives on File: Yes Advance Directives Date on File: 07/05/22 service: No Current occupational status: employed Physical Exam ED Vital Signs: Vital Signs - 24 hr 02/11/24 13:22 02/11/24 15:32 Temperature 98.6 F 98.2 F Pulse Rate 151 H 112 H Respiratory Rate 16 10 L Blood Pressure 150/110 H 147/105 H Pulse Oximetry 96 90 L Oxygen Delivery Method Room Air Room Air BMI result Body Mass Index 30.1 Vital signs have been reviewed and appear to be correct. Blood pressure elevated. Heart rate tachycardic. Respiratory rate normal. Temperature normal. Oxygen saturation normal. Const General: cooperative, healthy appearing and no acute distress Orientation/consciousness: oriented to person, oriented to place, oriented to time and patient oriented x3 Limitations: no limitations HENMT Head: Yes normocephalic and Yes atraumatic Ears: external ears normal General nose exam: Normal external nose present Face and sinus: Yes face symmetric Mouth: oropharynx normal and moist mucous membranes Throat: Yes uvula midline Eyes Pupils: Equal, round and reactive pupils present Neck Neck: Yes normal visual inspection and Yes supple Resp Effort & Inspection: normal respiratory effort and able to speak in complete sentences Auscultation: clear to auscultation bilaterally Cardio Rate: tachycardic Rhythm: regular rhythm Heart sounds: S1 normal heart sound present and S2 normal heart sound present Peripheral pulses: Peripheral pulses 2+ throughout GI Palpation (GI): Soft to palpation and nontender Auscultation: normoactive bowel sounds General: Yes no CVA tenderness Back/Spine/Pelvis Back: no CVA tenderness Skin General skin exam: elasticity normal and turgor normal Neuro General: oriented to person, oriented to place, oriented to time, patient oriented x3, moves all extremities, no focal motor deficits and CN's II-XI intact bilaterally Cranial nerves: Yes Equal, round and reactive pupils present Cognition (Neuro): normal cognition Motor exam (neuro): no tremor noted and Motor fasciculations not present Extrem General: Yes full ROM, Yes no pedal edema and Yes no calf tenderness Psych Mental Status: mental status grossly normal Affect: normal affect Thought process: Normal thought process present Course Course Course Narrative: This is an RME done by ANTONY Jiang: Additional HPI, ROS, PE not included below will be deferred to primary provider. 48 year old M with a pmh of alcohol use disorder and JAMES presenting with complaints of alcohol withdrawal. He states he feels as if he is unable to stop drinking and has previously attempted to quit twice, but since has relapsed. He admits to current use of 30-40 nips of vodka per day, last nip was about 2 hours ago. Has not had any water recently. States he has had nausea and vomiting. Admits to marijuana usage. Denies prior seizures, drug use, si/hi. Appearance: Alert.? Oriented X3.? No acute cardiopulmonary distress distress.? Head: Normocephalic, atraumatic, no step-offs or deformities Neck: Normal inspection.? Neck supple.? CVS: Pulses normal.? Respiratory: No respiratory distress.? Skin: ? Normal skin color. Extremities: 5/5 strength to bilateral upper and lower extremities Neuro: Oriented X 3.? No motor deficit.? No sensory deficit. Medications Administered Generic Name Dose Route Start Last Admin Trade Name Freq PRN Reason Stop Dose Admin Sodium Chloride 1,000 mls @ 999 mls/hr 02/11/24 15:15 02/11/24 15:31 Ns IV 02/11/24 16:15 999 mls/hr .Q1H1M JARET Administration Discontinued Medications Generic Name Dose Route Start Last Admin Trade Name Freq PRN Reason Stop Dose Admin Sodium Chloride 1,000 mls @ 999 mls/hr 02/11/24 14:00 02/11/24 15:31 Ns IV 02/11/24 15:00 Infused .Q1H1M JARET Infusion Thiamine HCl 200 mg/ Sodium 102 mls @ 204 mls/hr 02/11/24 14:22 02/11/24 15:31 Chloride IV 02/11/24 14:51 Infused ONCE ONE Infusion Lorazepam 2 mg 02/11/24 13:31 02/11/24 13:46 Lorazepam 2 Mg/Ml Vial IVPUSH 02/11/24 13:32 2 mg ONCE ONE Administration Ondansetron HCl 4 mg 02/11/24 13:29 02/11/24 13:47 Ondansetron Odt 4 Mg Tab.Rapdis TRANSLINGU 02/11/24 13:30 4 mg ONCE ONE Administration Phenobarbital Sodium 361 mg 02/11/24 15:00 02/11/24 15:30 Phenobarbital Sodium 130 Mg/Ml Im Once IM 02/11/24 15:01 361 mg ONCE ONE Administration Protocol Medical Decision Making Medical Decision Making [facility] Narrative: Patient is a 48-year-old male with history of alcohol use disorder presenting to the emergency department for assistance with detox from alcohol. On exam patient is awake, A+Ox3, hypertensive and tachycardic, afebrile, normal neurological exam without focal deficits, physical exam findings as above. Given reported symptoms and physical exam findings, initial differential includes alcohol withdrawal, alcohol use disorder, alcohol intoxication. Labs notable for ethanol of 282, magnesium normal. EKG shows sinus tachycardia, rate 128bpm, normal CT interval and QTc. Patient remains tachycardic despite IV ativan, IV phenobarb and fluids ordered. Case discussed with Lillie Cortez, [employer] hospitalist who accepts admission. Differential Diagnosis Differential Diagnoses: The differential diagnosis associated with the presentation includes as per [facility] Admission/Observation Consideration of admission/observation: Escalation of care including admission/observation considered Lab Data [facility] Lab Attestation statement: I reviewed the patient's lab results. as per [facility] 02/11/24 13:45 02/11/24 13:45 Labs: Lab Results 02/11/24 Range/Units 13:45 WBC 6.5 (4.8-10.8) X10*3/uL RBC 6.21 H (4.60-5.80) X10*6/uL Hgb 18.0 (14.0-18.0) g/dl Hct 49.9 (42.0-52.0) % MCV 80.4 (80.0-98.0) fL MCH 29.0 (27.0-33.0) pg MCHC 36.1 H (31.0-36.0) g/dl RDW 13.2 (11.0-16.0) % Plt Count 393 D (160-400) X10*3/uL MPV 8.8 L (9.4-12.4) fL Immature Gran % (Auto) 0.3 (0.0-0.4) % Neut % (Auto) 45.6 (45-73) % Lymph % (Auto) 47.9 H (20-40) % [place] % (Auto) 4.3 (2-11) % Eos % (Auto) 0.8 (0-4) % Baso % (Auto) 1.1 (0-2) % Lymph # (Auto) 3.1 (1.2-4.9) X10*3/uL [place] # (Auto) 0.3 (0.1-1.2) X10*3/uL Eos # (Auto) 0.1 (0.0-0.4) X10*3/uL Baso # (Auto) 0.1 (0.0-0.2) X10*3/uL Abs Immat Gran (auto) 0.02 (0.00-0.03) X10*3/uL Absolute Neuts (auto) 3.0 (2.0-8.3) x10*3/uL Absolute Nucleated RBC 0.000 (0.0-0.012) X10*3/uL Nucleated RBC % (auto) 0.0 (0.0-0.2) /100WBC Sodium 141 (135-145) mmol/L Potassium 4.0 (3.3-5.1) mmol/L Chloride 101 (96-108) mmol/L Carbon Dioxide 25 (22-29) mmol/L Anion Gap 19 (12-20) BUN 9 (9-16) mg/dL Creatinine 0.97 (0.5-1.4) mg/dL Estim Creat Clear Calc 113.5 Estimated GFR > 60 Random Glucose 123 H (60-115) mg/dL Calcium 9.1 (8.4-10.2) mg/dL Magnesium 1.9 (1.6-2.6) mg/dL Total Bilirubin 0.4 (0.0-1.0) mg/dL AST 23 (5-37) U/L ALT 18 (0-40) U/L Alkaline Phosphatase 72 (39-117) U/L Total Protein 8.1 H (6.5-8.0) g/dL Albumin 4.7 (3.5-5.0) g/dL Ethyl Alcohol 282 mg/dL External Record Review External record reviewed: Inpatient record, Office record and Outpatient record Discharge Plan Discharge Patient Disposition: Admitted As Inpatient Prescriptions: No Action omeprazole 40 mg Capsule,Delayed Release(Dr/Ec) 40 mg PO DAILY@0630 acetaminophen 500 mg Tablet 1,000 mg PO Q6H PRN (Reason: Pain) Print Language: [place]
--- NOTE | 2024-02-11 13:28 | ECG_ITS ---
Test Reason : ALCOHOL WITHDRAW Blood Pressure : / mmHG Vent. Rate : 128 BPM Atrial Rate : 128 BPM P-R Int : 140 ms QRS Dur : 080 ms QT Int : 300 ms P-R-T Axes : 039 -16 043 degrees QTc Int : 438 ms Sinus tachycardia Otherwise normal ECG When compared with ECG of 19-SEP-2023 21:39, No significant change was found Referred By: Kimberly Jiang Electronically Signed By:NOLAN BASURTO
[2024-02-11] MEDS: LORazepam 2 MG/ML VIAL IVPUSH (13:46)
[2024-02-11] MEDS: Ondansetron ODT 4 MG TAB.RAPDIS TRANSLINGU (13:47)
[2024-02-11] MEDS: 0.9 % Sodium Chloride 1,000 ML 999 ML IV ×2 (13:49→15:31)
[2024-02-11 13:54] LABS: MANUAL DIFF FLAG NO
[2024-02-11 13:56] LABS: Basophils Absolute Auto 0.1 X10*3/uL (0.0-0.2); Basophils Percent Auto 1.1 % (0-2); Eosinophils Absolute Auto 0.1 X10*3/uL (0.0-0.4); Eosinophils Percent Auto 0.8 % (0-4); Hematocrit 49.9 % (42.0-52.0); Imm Gran Abs Auto 0.02 X10*3/uL (0.00-0.03); Imm Gran Pct Auto 0.3 % (0.0-0.4); Lymphocytes Absolute Auto 3.1 X10*3/uL (1.2-4.9); Lymphocytes Percent Auto 47.9 % (20-40); Mean Corpuscular HGB Conc 36.1 g/dl (31.0-36.0); Mean Corpuscular Volume 80.4 fL (80.0-98.0); Mean Platelet Volume 8.8 fL (9.4-12.4); Monocytes Absolute Auto 0.3 X10*3/uL (0.1-1.2); Monocytes Percent Auto 4.3 % (2-11); Neutrophils Percent Auto 45.6 % (45-73); Platelet Count 393 X10*3/uL (160-400); Red Blood Count 6.21 X10*6/uL (4.60-5.80); Red Cell Distribution Width 13.2 % (11.0-16.0); White Blood Count 6.5 X10*3/uL (4.8-10.8)
[2024-02-11 14:09] LABS: Alanine Aminotransferase 18 U/L (0-40); Albumin Level 4.7 g/dL (3.5-5.0); Alkaline Phosphatase 72 U/L (39-117); Anion Gap 19 (12-20); Aspartate Amino Transferase 23 U/L (5-37); Bilirubin Total 0.4 mg/dL (0.0-1.0); Blood Urea Nitrogen 9 mg/dL (9-16); Calcium 9.1 mg/dL (8.4-10.2); Carbon Dioxide 25 mmol/L (22-29); Chloride 101 mmol/L (96-108); Creatinine Clr Calc Pharmacy 113.5; Estimated Glomerular Filt Rate > 60; Ethanol 282 mg/dL; Glucose Random 123 mg/dL (60-115); Magnesium 1.9 mg/dL (1.6-2.6); Sodium 141 mmol/L (135-145); Total Protein 8.1 g/dL (6.5-8.0)
[2024-02-11] MEDS: Thiamine HCL 200 MG in 0.9 % Sodium Chloride 100 ML 204 MG IV (14:43)
[2024-02-11] MEDS: PHENobarbitaL sodium 130 MG/ML IM ONCE 361 MG IM (15:30)
--- NOTE | 2024-02-11 15:41 | P.HPHOSP_ITS ---
History of Present Illness Date of Service: 02/11/24 Chief Complaint: alcohol withdrawal Chief Complaint: Alcohol withdrawal A 48-year-old male with a past medical history significant for hypertension, small bowel obstruction in June 2022, anxiety disorder, and alcohol use disorder with a history of withdrawal, presents to the ED with withdrawal symptoms. He was last admitted in August for alcohol withdrawal and claims to have remained sober until about three days ago, when he began drinking heavily again, consuming 20-30 nips of vodka per day in addition to 2 large bottles of wine. He reports no seizures or hallucinations. On examination, he is calm but tachycardic to the 130s, with a blood pressure of 147/105. His blood alcohol level is over 200. He is administered phenobarbital Review of Systems 2 Review of Systems: Gen: no fever Resp: no sob, no cough CV: no chest, no SMITH, no leg edema GI: No n/v, no abd pain Neuro: No confusion, no tremors [facility] Medical History HTN (hypertension) Alcohol abuse Acute renal failure (ARF) Small bowel obstruction Social History Household Members: None Housing: Apartment Do you presently have visiting nurse or other home services: No Alcohol intake: current Alcohol intake frequency: 3 or more drinks per day Alcohol type: wine and hard liquor Patient Tobacco Use Status: Never used Tobacco Smoked in Last 30 Days: No Use of substances other than those prescribed or required for medical reasons: No Substance Use Type: Marijuana Advance Directives: Yes Advance Directives on File: Yes Advance Directives Date on File: 07/05/22 service: No Current occupational status: employed Meds Allergies Allergy/AdvReac Type Severity Reaction Status Date / Time heparin Allergy Unknown Unknown Verified 02/11/24 13:27 Penicillins Allergy Unknown Unknown Verified 02/11/24 13:27 Active Medications: Current Medications Sodium Chloride (Ns) 1,000 mls @ 999 mls/hr IV .Q1H1M JARET Stop: 02/11/24 16:15 Last Admin: 02/11/24 15:31 Dose: 999 mls/hr Pharmacy Consult (Consult Rx Etoh Phenob Im/Po) 1 each MISCELLANE ONCE PRN; Protocol PRN Reason: Consult order Phenobarbital (Phenobarbital 30 Mg Tablet) 60 mg PO BID JARET; Protocol Stop: 02/13/24 21:01 Phenobarbital (Phenobarbital 30 Mg Tablet) 30 mg PO BID JARET; Protocol Stop: 02/15/24 21:01 Phenobarbital (Phenobarbital 30 Mg Tablet) 30 mg PO DAILY JARET; Protocol Stop: 02/17/24 09:01 Phenobarbital Sodium (Phenobarbital Sodium 130 Mg/Ml Vial Im Q3hx2) 271 mg IM Q3H JARET; Protocol Stop: 02/11/24 21:01 Home Medications ?Medication ?Instructions ?Recorded ?Confirmed ?Last Taken ?Type omeprazole 40 mg capsule,delayed 40 mg PO DAILY@0630 07/02/22 02/11/24 02/09/24 History release acetaminophen 500 mg tablet 1,000 mg PO Q6H PRN Pain 09/20/23 02/11/24 Unknown History ibuprofen 200 mg tablet 800 mg PO DAILY PRN Pain 02/11/24 02/11/24 Unknown History Physical Exam 2 Vital Signs and Narrative: Vital Signs: Last Vital Signs Temp 98.2 F 02/11/24 15:32 Pulse 112 H 02/11/24 15:32 Resp 10 L 02/11/24 15:32 BP 147/105 H 02/11/24 15:32 Pulse Ox 90 L 02/11/24 15:32 O2 Del Method Room Air 02/11/24 15:32 BMI result Body Mass Index 30.1 General: AO X 3, no acute distress Resp: CTA bilateral CVS: S1,S2,RRR GI: +BS, NT, no distention Skin: No rash Neuro: motor grossly intact Psych: appropriate affect Results Labs 02/11/24 13:45 02/11/24 13:45 Labs: Laboratory Results - last 24 hr 02/11/24 13:45 MCV 80.4 MCH 29.0 MCHC 36.1 H RDW 13.2 Plt Count 393 D MPV 8.8 L Immature Gran % (Auto) 0.3 Neut % (Auto) 45.6 Lymph % (Auto) 47.9 H [place] % (Auto) 4.3 Eos % (Auto) 0.8 Baso % (Auto) 1.1 Lymph # (Auto) 3.1 [place] # (Auto) 0.3 Eos # (Auto) 0.1 Baso # (Auto) 0.1 Abs Immat Gran (auto) 0.02 Absolute Neuts (auto) 3.0 Absolute Nucleated RBC 0.000 Nucleated RBC % (auto) 0.0 Anion Gap 19 Estim Creat Clear Calc 113.5 Estimated GFR > 60 Random Glucose 123 H Calcium 9.1 Magnesium 1.9 Total Bilirubin 0.4 AST 23 ALT 18 Alkaline Phosphatase 72 Total Protein 8.1 H Albumin 4.7 Ethyl Alcohol 282 Assessment and Plan (1) Alcohol use disorder: Status: Acute (2) Alcohol withdrawal: Status: Acute Plan Pt is a 48-year-old male with a PMH significant for?HTN, SBO in 06/2022, and alcohol use disorder w/ hx of withdrawal here with acute alcohol withdrawal, after relapsing in 4 months Alcohol withdrawal -Phenobarbital -IV hydration -Folic acid and thiamine replacement. -addiction med consult Tachycardia--related to above -treat underlying withdrawa, IvF HTN--not on meds, supposed to be on atenolol but has not been taking Mood disorder--use to take Zoloft but hasn't taken in years Full Code DVT Prophylaxis: Pneumatic boots due to heparin allergy Pt will require a hospitalization of at least two nights for treatment of?acute alcohol withdrawal Quality Stroke Does the patient have a stroke diagnosis?: No VTE Prior VTE?: No VTE Risk Level:: Medical - moderate - high VTE Device Contraindication: Treatment Not Tolerated VTE Drug Contraindication: N/A - Med Ordered
--- NOTE | 2024-02-11 15:59 | PHA.MEDREC ---
Addendum entered by Corey Mccullough 02/11/24 16:07: Med rec reveiwed. Original Note: Pharmacy Consult ? Medication Reconciliation Pharmacy has completed the medication reconciliation. Spoke to patient to confirm med list.
[2024-02-11] MEDS: Lactated Ringers 1,000 ML 150 ML IVCONT (17:48)
[2024-02-11] MEDS: PHENobarbitaL sodium 130 MG/ML VIAL IM Q3Hx2 271 MG IM ×2 (18:07→20:50)
[2024-02-11 22:46] LABS: Appearance Urine Clear; Color Urine Yellow; Glucose Urine UA Negative (Negative); Leukocyte Esterase Urine Negative (Negative); Nitrite Urine Negative (Negative); Specific Gravity - Urine 1.015 (1.005-1.025); UMIC TRIGGER UACC YES; Urine Blood Negative (Negative); Urine Ketones Negative (Negative); Urine Protein 300 (3+) mg/dL (Neg-Trace)
[2024-02-11 22:55] LABS: Amphetamine Screen Urine Not Detected (Not Detect); Barbiturates, Urine POSITIVE (Not Detect); Benzodiazepines Screen Urine Not Detected (Not Detect); Buprenorphine Scr Not Detected (Not Detect); Cannabinoid Screen Urine POSITIVE (Not Detect); Cocaine Screen Urine Not Detected (Not Detect); Fentanyl, urine Not Detected (Not Detect); Methadone Screen, Urine Not Detected (Not Detect); Opiate Screen Urine Not Detected (Not Detect); Oxycodone Screen Urine Not Detected (Not Detect); Phencyclidine Screen Urine Not Detected (Not Detect)
[2024-02-11 22:56] LABS: Bacteria Urine None Seen (None Seen); RBC Urine 0-2 /HPF (0-2); Squamous Epithelial Cell Urine 0-2 /HPF (0-2); WBC Urine 0-5 /HPF (0-5)
[2024-02-12] MEDS: Lactated Ringers 1,000 ML 150 ML IVCONT ×4 (01:24→23:28)
[2024-02-12 02:53] VITALS: BP 148/92; PULSE 88; RESP 18; TEMP 36.4; O2SAT 95
[2024-02-12 08:00] VITALS: BP 163/107; PULSE 81; RESP 20; TEMP 36.6; O2SAT 96
--- NOTE | 2024-02-12 08:20 | MHC.CM.PN ---
CM met with Patient at bedside. Patient lives alone in an apartment and is functionally independent. Home self care VS Recovery Team Intervention R/T ETOH is the tentative plan and CM has initiated and will follow for dc planning. PCP/PARING MACHINE OPERATOR is Mari Samaniego and HCP is Sister/Vianey. Patient will use Uber or shuttle for transport to home.
[2024-02-12] MEDS: PHENobarbitaL 30 MG TABLET 60 MG PO ×2 (08:21→20:25)
[2024-02-12] MEDS: Folic Acid 1 MG TABLET PO (08:26)
[2024-02-12] MEDS: Thiamine HCL 100 MG TABLET PO (08:26)
[2024-02-12] MEDS: atenoloL 25 MG TABLET PO (09:46)
--- NOTE | 2024-02-12 10:37 | P.PNIM_ITS ---
Subjective Subjective Date of Service: 02/12/24 Interval History: follow up on alcohol withdrawal he calm, not tremulous, no hallucination and no seizure Physical Exam 2 Vital Signs: Vital Signs: Last Vital Signs Temp 97.8 F 02/12/24 08:00 Pulse 81 02/12/24 08:00 Resp 20 02/12/24 08:00 BP 163/107 H 02/12/24 08:00 Pulse Ox 96 02/12/24 08:00 O2 Del Method Room Air 02/12/24 08:00 O2 Flow Rate 2 02/11/24 16:00 BMI result Body Mass Index 30.1 Const: Other: General: AO X 3, no acute distress Resp: CTA bilateral CVS: S1,S2,RRR GI: +BS, NT, no distention Skin: No rash Neuro: motor grossly intact Psych: appropriate affect Objective Data Active Medications Acetaminophen (Acetaminophen 325 Mg Tablet) 650 mg PO Q6H PRN PRN Reason: Pain, Mild (Pain Scale 1-3), fever or headache Atenolol (Atenolol 25 Mg Tablet) 25 mg PO DAILY [facility]; Protocol Last Admin: 02/12/24 09:46 Dose: 25 mg Documented By: STACI Calcium Carbonate (Calcium Carbonate 750 Mg Tab.Chew) 750 mg PO Q4H PRN PRN Reason: Heartburn Folic Acid (Folic Acid 1 Mg Tablet) 1 mg PO DAILY [facility] Stop: 02/14/24 09:01 Last Admin: 02/12/24 08:26 Dose: 1 mg Documented By: STACI Lactated Ringer's (Lr) 1,000 mls @ 150 mls/hr IVCONT .Q6H40M [facility] Last Admin: 02/12/24 08:21 Dose: 150 mls/hr Documented By: STACI Magnesium Hydroxide (Milk Of Magnesia 30 Ml Oral.Susp) 30 ml PO DAILY PRN PRN Reason: Constipation Melatonin (Melatonin 3 Mg Tablet) 6 mg PO BEDTIME PRN PRN Reason: Insomnia Omeprazole (Omeprazole 40 Mg Capsule.Dr) 40 mg PO DAILY@0630 [facility] Last Admin: 02/12/24 06:26 Dose: Not Given Documented By: ANTOIC Non-Admin Reason: Patient Refused Pharmacy Consult (Consult Rx Etoh Phenob Im/Po) 1 each MISCELLANE ONCE PRN; Protocol PRN Reason: Consult order Phenobarbital (Phenobarbital 30 Mg Tablet) 60 mg PO BID [facility]; Protocol Stop: 02/13/24 21:01 Last Admin: 02/12/24 08:21 Dose: 60 mg Documented By: STACI Phenobarbital (Phenobarbital 30 Mg Tablet) 30 mg PO BID [facility]; Protocol Stop: 02/15/24 21:01 Phenobarbital (Phenobarbital 30 Mg Tablet) 30 mg PO DAILY [facility]; Protocol Stop: 02/17/24 09:01 Sodium Chloride (0.9 % Sodium Chloride Flush 3 Ml Syringe) 3 ml IVFLUSH QSHIFT [facility] Last Admin: 02/12/24 07:35 Dose: Not Given Documented By: STACI Non-Admin Reason: Previously Administered Thiamine HCl (Thiamine Hcl 100 Mg Tablet) 100 mg PO DAILY [facility] Stop: 02/14/24 09:01 Last Admin: 02/12/24 08:26 Dose: 100 mg Documented By: STACI Labs 02/11/24 13:45 02/11/24 13:45 Labs: Laboratory Results - last 24 hr 02/11/24 02/11/24 13:45 21:23 MCV 80.4 MCH 29.0 MCHC 36.1 H RDW 13.2 Plt Count 393 D MPV 8.8 L Immature Gran % (Auto) 0.3 Neut % (Auto) 45.6 Lymph % (Auto) 47.9 H [place] % (Auto) 4.3 Eos % (Auto) 0.8 Baso % (Auto) 1.1 Lymph # (Auto) 3.1 [place] # (Auto) 0.3 Eos # (Auto) 0.1 Baso # (Auto) 0.1 Abs Immat Gran (auto) 0.02 Absolute Neuts (auto) 3.0 Absolute Nucleated RBC 0.000 Nucleated RBC % (auto) 0.0 Anion Gap 19 Estim Creat Clear Calc 113.5 Estimated GFR > 60 Random Glucose 123 H Calcium 9.1 Magnesium 1.9 Total Bilirubin 0.4 AST 23 ALT 18 Alkaline Phosphatase 72 Total Protein 8.1 H Albumin 4.7 Urine Color Yellow Urine Appearance Clear Urine pH 6.0 Ur Specific [place] 1.015 Urine Protein 300 (3+) H Urine Glucose (UA) Negative Urine Ketones Negative Urine Blood Negative Urine Nitrite Negative Ur Leukocyte Esterase Negative Urine RBC 0-2 Urine WBC 0-5 Ur Squamous Epith Cells 0-2 Urine Bacteria None Seen Hyaline Casts 6-10 Urine Opiates Screen Not Detected Ur Buprenorphine Scrn Not Detected Ur Oxycodone Screen Not Detected Urine Methadone Screen Not Detected Urine Fentanyl Screen Not Detected Ur Barbiturates Screen POSITIVE H Ur Phencyclidine Scrn Not Detected Ur Amphetamines Screen Not Detected U Benzodiazepines Scrn Not Detected Urine Cocaine Screen Not Detected U Marijuana (THC) Screen POSITIVE H Ethyl Alcohol 282 Assessment and Plan (1) Alcohol withdrawal: Status: Acute Plan 48-year-old male with a PMH significant for?HTN, SBO in 06/2022, and alcohol use disorder w/ hx of withdrawal here with acute alcohol withdrawal, after relapsing in 4 months Alcohol withdrawal -Phenobarbital -IV hydration -Folic acid and thiamine replacement. -addiction med consult -monitor ciwa Tachycardia--related to above, resolved with IVF HTN--started on atenolol and Norvasc Mood disorder--use to take Zoloft but hasn't taken in years Full Code DVT Prophylaxis: Pneumatic boots due to heparin allergy need for inpt; treatment for alcohol withdrawal. Quality Stroke Does the patient have a stroke diagnosis?: No VTE Prior VTE?: No VTE Risk Level:: Medical - moderate - high VTE Device Contraindication: Treatment Not Tolerated VTE Drug Contraindication: N/A - Med Ordered
[2024-02-12 11:17] VITALS: BP 160/94; PULSE 81
[2024-02-12] MEDS: amLODIPine Besylate 5 MG TABLET PO (11:17)
[2024-02-12 13:22] VITALS: BP 143/102; PULSE 79
[2024-02-12 16:00] VITALS: BP 158/94; PULSE 74; RESP 18; TEMP 36.2; O2SAT 97
--- NOTE | 2024-02-12 16:13 | MHC.RECOVRN ---
AUDIT-C Brief Intervention Pt had positive screen for unhealthy alcohol use on admission, subsequently met with t/w to discuss alcohol use and recovery supports/options. Pt voices concern regarding alcohol use and is aware that drinking at unhealthy levels is known to increase risk of alcohol related health problems. Pt reports 6 sleeves vodka as well as 3-4 big bottles of wine over the 36-72 hours preceding presentation to [facility] [place]. Prior to that, pt reports last drink was in September. Pt reports he believes he began drinking again due to feeling lonely and having symptoms of depression. Pt expresses how alcohol use has impacted health, including negative impact on mental health and overall physical wellbeing. Discussed risk reduction strategies including drinking below the recommended limit. Provided pt with written resources including information on inpatient and outpatient treatment, ADRIANO, harm reduction, and recovery coaching. Pt is interested in naltrexone. Has not tried ADRIANO in the past. Pt plans to follow up with the [facility] after discharge. Pt provided with t/w contact information if questions or concerns arise. Denies other questions or concerns at this time. Discussed with Kaylee Sears APRN.
[2024-02-12 19:40] VITALS: BP 165/90; PULSE 91; RESP 18; TEMP 36.3; O2SAT 99
[2024-02-12] MEDS: Milk of Magnesia 30 ML ORAL.SUSP PO (19:58)
--- NOTE | 2024-02-12 21:07 | P.EN_ITS ---
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
[2024-02-12] MEDS: Acetaminophen 325 MG TABLET 650 MG PO (23:29)
[2024-02-13] VITALS (8 sets, daily range): BP systolic 133–180; BP diastolic 78–99; PULSE 65–89; RESP 18–20; TEMP 36.3–37.5; O2SAT 96–99
[2024-02-13] MEDS: Omeprazole 40 MG CAPSULE.DR PO (05:59)
[2024-02-13 06:38] LABS: Hematocrit 39.5 % (42.0-52.0); Mean Corpuscular HGB Conc 34.9 g/dl (31.0-36.0); Mean Corpuscular Hemoglobin 28.4 pg (27.0-33.0); Mean Corpuscular Volume 81.3 fL (80.0-98.0); Mean Platelet Volume 9.4 fL (9.4-12.4); Platelet Count 204 X10*3/uL (160-400); Red Blood Count 4.86 X10*6/uL (4.60-5.80); Red Cell Distribution Width 12.9 % (11.0-16.0); White Blood Count 6.9 X10*3/uL (4.8-10.8)
[2024-02-13 06:51] LABS: Anion Gap 16 (12-20); Blood Urea Nitrogen 10 mg/dL (9-16); Calcium 9.1 mg/dL (8.4-10.2); Carbon Dioxide 23 mmol/L (22-29); Chloride 102 mmol/L (96-108); Creatinine Clr Calc Pharmacy 131.1; Estimated Glomerular Filt Rate > 60; Glucose Random 102 mg/dL (60-115); Sodium 137 mmol/L (135-145)
[2024-02-13 06:56] LABS: Hemoglobin 13.8 g/dl (14.0-18.0)
[2024-02-13] MEDS: Naltrexone HCl 50 MG TABLET 25 MG PO (07:55)
[2024-02-13] MEDS: PHENobarbitaL 30 MG TABLET 60 MG PO ×2 (07:55→20:31)
[2024-02-13] MEDS: Folic Acid 1 MG TABLET PO (07:56)
[2024-02-13] MEDS: Thiamine HCL 100 MG TABLET PO (07:56)
[2024-02-13] MEDS: atenoloL 25 MG TABLET PO (07:56)
[2024-02-13] MEDS: amLODIPine Besylate 5 MG TABLET PO (07:56)
[2024-02-13] MEDS: Acetaminophen 325 MG TABLET 650 MG PO (07:57)
[2024-02-13] MEDS: Milk of Magnesia 30 ML ORAL.SUSP PO (07:58)
[2024-02-13 08:49] LABS: C Reactive Protein 4.63 mg/dL (< or = 0.50); Magnesium 1.8 mg/dL (1.6-2.6); Uric Acid 7.4 mg/dL (3.4-7.0)
[2024-02-13 09:12] LABS: Erythrocyte Sedimentation Rate 7 MM/HR (0-15)
[2024-02-13] MEDS: Ibuprofen 600 MG TABLET PO ×2 (09:39→18:34)
[2024-02-13] MEDS: Lactated Ringers 1,000 ML 150 ML IVCONT (09:39)
--- NOTE | 2024-02-13 18:34 | HO.PM.IMPN ---
Subjective Subjective Date of Service: 02/14/24 Interval History: follow up on alcohol withdrawal c/o generally not feelingh well, and has swelling at left elbow that he says is result of gout and happens when he drinks alcohol, area is swollen Physical Exam Vital Signs: Vital Signs: Last Vital Signs Temp 98.2 F 02/13/24 16:00 Pulse 81 02/13/24 16:00 Resp 20 02/13/24 16:00 BP 180/99 H 02/13/24 16:00 Pulse Ox 99 02/13/24 16:00 O2 Del Method Room Air 02/13/24 16:00 O2 Flow Rate 2 02/11/24 16:00 BMI result Body Mass Index 30.1 General: AO X 3, no acute distress Resp: CTA bilateral CVS: S1,S2,RRR GI: +BS, NT, no distention Skin: Neuro: motor grossly intact Psych: appropriate affect Const: Other: General: AO X 3, no acute distress Resp: CTA bilateral CVS: S1,S2,RRR GI: +BS, NT, no distention Skin: No rash Neuro: motor grossly intact Psych: appropriate affect Objective Data Active Medications Amlodipine Besylate (Amlodipine Besylate 5 Mg Tablet) 5 mg PO DAILY [facility]; Protocol Last Admin: 02/13/24 07:56 Dose: 5 mg Documented By: STACI Atenolol (Atenolol 25 Mg Tablet) 25 mg PO DAILY [facility]; Protocol Last Admin: 02/13/24 07:56 Dose: 25 mg Documented By: STACI Calcium Carbonate (Calcium Carbonate 750 Mg Tab.Chew) 750 mg PO Q4H PRN PRN Reason: Heartburn Folic Acid (Folic Acid 1 Mg Tablet) 1 mg PO DAILY [facility] Stop: 02/14/24 09:01 Last Admin: 02/13/24 07:56 Dose: 1 mg Documented By: STACI Ibuprofen (Ibuprofen 600 Mg Tablet) 600 mg PO Q8H PRN PRN Reason: Pain, Moderate(Pain Scale 4-6) Last Admin: 02/13/24 18:34 Dose: 600 mg Documented By: STACI Magnesium Hydroxide (Milk Of Magnesia 30 Ml Oral.Susp) 30 ml PO DAILY PRN PRN Reason: Constipation Last Admin: 02/13/24 07:58 Dose: 30 ml Documented By: STACI Melatonin (Melatonin 3 Mg Tablet) 6 mg PO BEDTIME PRN PRN Reason: Insomnia Naltrexone HCl (Naltrexone Hcl 50 Mg Tablet) 25 mg PO DAILY [facility] Last Admin: 02/13/24 07:55 Dose: 25 mg Documented By: STACI Omeprazole (Omeprazole 40 Mg Capsule.) 40 mg PO DAILY@0630 [facility] Last Admin: 02/13/24 05:59 Dose: 40 mg Documented By: DIDI Pharmacy Consult (Consult Rx Etoh Phenob Im/Po) 1 each MISCELLANE ONCE PRN; Protocol PRN Reason: Consult order Phenobarbital (Phenobarbital 30 Mg Tablet) 60 mg PO BID [facility]; Protocol Stop: 02/13/24 21:01 Last Admin: 02/13/24 07:55 Dose: 60 mg Documented By: STACI Phenobarbital (Phenobarbital 30 Mg Tablet) 30 mg PO BID [facility]; Protocol Stop: 02/15/24 21:01 Phenobarbital (Phenobarbital 30 Mg Tablet) 30 mg PO DAILY [facility]; Protocol Stop: 02/17/24 09:01 Thiamine HCl (Thiamine Hcl 100 Mg Tablet) 100 mg PO DAILY [facility] Stop: 02/14/24 09:01 Last Admin: 02/13/24 07:56 Dose: 100 mg Documented By: STACI Labs 02/13/24 05:46 02/13/24 05:46 Labs: Laboratory Results - last 24 hr 02/13/24 05:46 MCV 81.3 MCH 28.4 MCHC 34.9 RDW 12.9 Plt Count 204 D MPV 9.4 Absolute Nucleated RBC 0.000 Nucleated RBC % (auto) 0.0 ESR 7 Anion Gap 16 Estim Creat Clear Calc 131.1 Estimated GFR > 60 Random Glucose 102 Uric Acid 7.4 H Calcium 9.1 Magnesium 1.8 C-Reactive Protein 4.63 H Assessment and Plan (1) Alcohol use disorder: Status: Acute (2) Generalized anxiety disorder: Status: Acute Plan 48-year-old male with a PMH significant for?HTN, SBO in 06/2022, and alcohol use disorder w/ hx of withdrawal here with acute alcohol withdrawal, after relapsing in 4 months Alcohol withdrawal -Phenobarbital -stop ivf -Folic acid and thiamine replacement. -addiction med consult -monitor ciwa Tachycardia--related to above, resolved with IVF HTN--started on atenolol and Norvasc, monitor and adjust meds Mood disorder--use to take Zoloft but hasn't taken in years right elbow pain ? gout vs bursitis, uric minimally high, empiric doxy and dose of presnisone Full Code DVT Prophylaxis: Pneumatic boots due to heparin allergy need for inpt; treatment for alcohol withdrawal. Quality Stroke Does the patient have a stroke diagnosis?: No VTE Prior VTE?: No VTE Risk Level:: Medical - moderate - high VTE Device Contraindication: Treatment Not Tolerated VTE Drug Contraindication: N/A - Med Ordered
--- NOTE | 2024-02-13 18:38 | PC.NURSE ---
L elbow gout is expanding now has red lines going up his arm ? streaking. His BP is 180/99 and feels lightheaded/ head fullness stating he overall feels unwell. informed. recheck bp 159/96 prev SBP 180s
[2024-02-13] MEDS: Doxycycline Hyclate 100 MG in 0.9 % Sodium Chloride 250 ML 166.67 MG IV (20:29)
[2024-02-13] MEDS: bisacodyL 5 MG TABLET.DR 10 MG PO (22:12)
[2024-02-14] VITALS (7 sets, daily range): BP systolic 129–164; BP diastolic 84–104; PULSE 66–88; RESP 18–20; TEMP 36.1–36.9; O2SAT 97–99
[2024-02-14] MEDS: Ibuprofen 600 MG TABLET PO ×3 (03:07→21:13)
[2024-02-14] MEDS: Doxycycline Hyclate 100 MG in 0.9 % Sodium Chloride 250 ML 166.67 MG IV ×2 (06:24→18:40)
[2024-02-14] MEDS: Omeprazole 40 MG CAPSULE.DR PO (06:24)
--- NOTE | 2024-02-14 09:35 | P.PNIM_ITS ---
Subjective Subjective Date of Service: 02/14/24 Interval History: follow up on alcohol withdrawal feels better, no sings of withdrawal elbow feels better, he believes it is gout, he has had it multiple times in past and resolves with motrin and tylenol--refused steroid and colchicine Physical Exam 2 Vital Signs: Vital Signs: Last Vital Signs Temp 97 F 02/14/24 08:00 Pulse 69 02/14/24 08:00 Resp 20 02/14/24 08:00 BP 164/104 H 02/14/24 08:00 Pulse Ox 98 02/14/24 08:00 O2 Del Method Room Air 02/14/24 08:00 O2 Flow Rate 2 02/11/24 16:00 BMI result Body Mass Index 30.1 Objective Data Active Medications Acetaminophen (Acetaminophen 325 Mg Tablet) 650 mg PO Q6H PRN PRN Reason: Pain, Mild (Pain Scale 1-3) Amlodipine Besylate (Amlodipine Besylate 10 Mg Tablet) 10 mg PO DAILY [facility]; Protocol Atenolol (Atenolol 25 Mg Tablet) 25 mg PO DAILY [facility]; Protocol Last Admin: 02/13/24 07:56 Dose: 25 mg Documented By: STACI Calcium Carbonate (Calcium Carbonate 750 Mg Tab.Chew) 750 mg PO Q4H PRN PRN Reason: Heartburn Doxycycline Hyclate 100 mg/ (Sodium Chloride) 250 mls @ 166.67 mls/hr IV Q12H [facility] Last Admin: 02/14/24 06:24 Dose: 166.67 mls/hr Documented By: NINA Ibuprofen (Ibuprofen 600 Mg Tablet) 600 mg PO Q8H PRN PRN Reason: Pain, Moderate(Pain Scale 4-6) Last Admin: 02/14/24 03:07 Dose: 600 mg Documented By: NINA Magnesium Hydroxide (Milk Of Magnesia 30 Ml Oral.Susp) 30 ml PO DAILY PRN PRN Reason: Constipation Last Admin: 02/13/24 07:58 Dose: 30 ml Documented By: STACI Melatonin (Melatonin 3 Mg Tablet) 6 mg PO BEDTIME PRN PRN Reason: Insomnia Naltrexone HCl (Naltrexone Hcl 50 Mg Tablet) 25 mg PO DAILY [facility] Last Admin: 02/13/24 07:55 Dose: 25 mg Documented By: STACI Omeprazole (Omeprazole 40 Mg Capsule.Dr) 40 mg PO DAILY@0630 [facility] Last Admin: 02/14/24 06:24 Dose: 40 mg Documented By: NINA Pharmacy Consult (Consult Rx Etoh Phenob Im/Po) 1 each MISCELLANE ONCE PRN; Protocol PRN Reason: Consult order Phenobarbital (Phenobarbital 30 Mg Tablet) 30 mg PO BID [facility]; Protocol Stop: 02/15/24 21:01 Phenobarbital (Phenobarbital 30 Mg Tablet) 30 mg PO DAILY [facility]; Protocol Stop: 02/17/24 09:01 Prednisone (Prednisone 20 Mg Tablet) 40 mg PO DAILY [facility] Last Admin: 02/13/24 20:33 Dose: Not Given Documented By: NINA Non-Admin Reason: Patient Refused Labs 02/13/24 05:46 02/13/24 05:46 Assessment and Plan (1) Alcohol use disorder: Status: Acute (2) Generalized anxiety disorder: Status: Acute 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 Presently has no sings or symptoms of withdrawal. He has been seen by the addiction med team and given resources to help with sobriety after discharge -Phenobarbital -Folic acid and thiamine replacement. -addiction med consult -monitor ciwa Tachycardia--related to above, resolved with IVF HTN--Has not taken meds in years. Started on Atenolol 25 bid, Norvasc increased to 10 mg daily and will need to follow upwith PCP., Blood pressure isbetter Mood disorder--use to take Zoloft but hasn't taken in years right elbow pain and redness, uric acid is slightly high, no fever, normal WBC, empirically treated with Doxy. Tylenol and Motrin for gout. He has had this multiple times inthe past and usualy resolves with tyelnol and motrin. He declined Prednisone and Colchicine Full Code DVT Prophylaxis: Pneumatic boots due to heparin allergy, out of bed and ambulate need for inpt; treatment for alcohol withdrawal probably home later today Quality Stroke Does the patient have a stroke diagnosis?: No VTE Prior VTE?: No VTE Risk Level:: Medical - moderate - high VTE Device Contraindication: Treatment Not Tolerated VTE Drug Contraindication: N/A - Med Ordered
[2024-02-14] MEDS: Thiamine HCL 100 MG TABLET PO (09:40)
[2024-02-14] MEDS: Naltrexone HCl 50 MG TABLET 25 MG PO (09:40)
[2024-02-14] MEDS: Folic Acid 1 MG TABLET PO (09:40)
[2024-02-14] MEDS: atenoloL 25 MG TABLET PO ×2 (09:40→10:25)
[2024-02-14] MEDS: PHENobarbitaL 30 MG TABLET PO ×2 (09:44→21:02)
[2024-02-14] MEDS: Acetaminophen 325 MG TABLET 650 MG PO ×2 (09:45→16:09)
[2024-02-15 03:36] VITALS: BP 142/87; PULSE 71; RESP 20; TEMP 37.1; O2SAT 98
[2024-02-15] MEDS: Omeprazole 40 MG CAPSULE.DR PO (06:19)
[2024-02-15] MEDS: Doxycycline Hyclate 100 MG in 0.9 % Sodium Chloride 250 ML 166.67 MG IV (06:20)
[2024-02-15] MEDS: Acetaminophen 325 MG TABLET 650 MG PO (06:26)
[2024-02-15] MEDS: Ibuprofen 600 MG TABLET PO (06:27)
[2024-02-15 07:12] VITALS: BP 143/93; PULSE 66; RESP 20; TEMP 36.4; O2SAT 97
[2024-02-15] MEDS: atenoloL 50 MG TABLET PO (08:58)
[2024-02-15] MEDS: amLODIPine Besylate 10 MG TABLET PO (08:59)
[2024-02-15] MEDS: Naltrexone HCl 50 MG TABLET 25 MG PO (08:59)
--- NOTE | 2024-02-15 09:41 | P.DS_ITS ---
DS: Providers Provider Date of Service: 02/15/24 Date of admission: 02/11/24 16:03 Primary care physician: Mari Yin APRN Consults: 02/11/24 13:43 Addiction Medicine Routine Consulting Provider: Addiction Covering Reason for consultation: alcohol detox 02/12/24 08:18 Addiction Medicine Routine Consulting Provider: Addiction Covering Reason for consultation: alcohol dependence DS: Diagnosis Discharge Diagnosis (1) Alcohol use disorder: Status: Acute (2) Generalized anxiety disorder: Status: Acute DS: Summary Hospital Course Hospital Course: admission hpi Chief Complaint: Alcohol withdrawal A 48-year-old male with a past medical history significant for hypertension, small bowel obstruction in June 2022, anxiety disorder, and alcohol use disorder with a history of withdrawal, presents to the ED with withdrawal symptoms. He was last admitted in August for alcohol withdrawal and claims to have remained sober until about three days ago, when he began drinking heavily again, consuming 20-30 nips of vodka per day in addition to 2 large bottles of wine. He reports no seizures or hallucinations. On examination, he is calm but tachycardic to the 130s, with a blood pressure of 147/105. His blood alcohol level is over 200. He is administered phenobarbital Hospital course; alcohol withdrawal He presented with symptoms of alcohol withdrawal, elevated BP and tachycardia and was admitted and treated with Phenobarbital per protocol for alcohol withdrawal and has done well. Presently has no sings or symptoms of withdrawal. He has been seen by the addiction med team and given resources to help with sobriety after discharge Tachycardia --related to above, resolved with IVF HTN--Has not taken meds in years. Started on Atenolol 50 daily, Norvasc increased to 10 mg daily and will need to follow up with PCP., Blood pressure is better, 149/93 Mood disorder--use to take Zoloft but hasn't taken in years, denies depressive symptoms or SI right elbow pain and redness, uric acid is slightly high, no fever, normal WBC, empirically treated with Doxy. Tylenol and Motrin for gout. He has had this multiple times in the past and usualy resolves with tyelnol and motrin. He declined Prednisone and Colchicine. The redness and pain is muchb improved. [facility] 7 days of Doxy and to continue Tylenol and Motrin PRN Advised to follow up with PCP and to stay sober Time Attestation Discharge Coordination Time (in mins): 35 Quality: Safe Use of Opioids Does Pt have an Active Cancer Diagnosis on the Problem List?: No Quality: Stroke Does the patient have a stroke diagnosis?: No Physical Exam Vital Signs: Vital Signs: Last Vital Signs Temp 97.5 F 02/15/24 07:12 Pulse 66 02/15/24 07:12 Resp 20 02/15/24 07:12 BP 143/93 H 02/15/24 07:12 Pulse Ox 97 02/15/24 07:12 O2 Del Method Room Air 02/15/24 07:12 O2 Flow Rate 2 02/11/24 16:00 BMI result Body Mass Index 30.1 DS: Data Data Completed and Pending Completed studies during hospitalization [Text1]: Procedures Detoxification Services for Substance Abuse Treatment (09/19/23) Discharge Plan Discharge Anticipated Discharge Date/Time: 02/15/24 09:46 Patient Disposition: Home, Self-Care Discharge Diagnosis: alcohol withdrawal, acute gout, uncontrolled hypertension Referrals: Mari Yin APRN [Primary Care Provider] - 1 Week Discharge Medications: New amlodipine 10 mg Tablet 10 mg PO DAILY Qty: 90 0RF Protocol: Hold for SBP< HOLD for SBP < : 90 atenolol 50 mg Tablet 50 mg PO DAILY Qty: 90 0RF Protocol: Hold for SBP/HR < HOLD for SBP < : 90 HOLD for HR < : 60 doxycycline monohydrate 100 mg capsule 100 mg PO BID Qty: 10 0RF Continued omeprazole 40 mg Capsule,Delayed Release(Dr/Ec) 40 mg PO DAILY@0630 acetaminophen 500 mg Tablet 1,000 mg PO Q6H PRN (Reason: Pain) ibuprofen 200 mg Tablet 800 mg PO DAILY PRN (Reason: Pain) Discharge Orders: Discharge Order (Routine); Ordered 02/15/24 Ordered By: Óscar Rosenthal Diet: Advance to usual diet Activity on Discharge: As tolerated Stand Alone Forms: Patient Portal Discharge page, Work/School Release Print Language: Jordanian Care Plan Goals: recovery from alcohol withdrawal, maintain sobriety. Health Concerns: Chronic alcohol dependency gout uncontrolled hypertension Plan of Treatment: please use the resources given to you by the recovery team to help you become sober take Motrin and Tylenol as directed for gout complete treatment with doxycycline for possible cellulitis of of left elbow take Norvasc and atenolol as directed for high blood pressure, and follow-up with your primary care physician for further adjustment in blood pressure medication Assessment: see above Discharge Date/Time: 02/15/24 11:31
--- NOTE | 2024-02-15 10:35 | MHC.CM.PN ---
Patient is discharged to home self care. He has arranged for transportation home.
== END 2024-02-15 11:31 | disposition home or self-care (01) | DRG 897 ==
LOC: HO.ED 15:45 → HO.EDOVER 16:10 → HO.IMC 19:13
PROVIDERS: Physician Assistant; Admitting Provider Internal Medicine; Emergency Provider Emergency Medicine; PCP Registered Nurse; Visit Provider Internal Medicine
DX: F10.139 Alcohol abuse with withdrawal, unspecified (principal); Y90.8 Blood alcohol level of 240 mg/100 ml or more; M10.9 Gout, unspecified; I10 Essential (primary) hypertension; F41.1 Generalized anxiety disorder; Z79.899 Other long term (current) drug therapy
CPT/HCPCS: 36415; 80048; 80053; 80307; 81001; 83735; 84550; 85025; 85027; 85652; 86140; 93005; 99285; J2060; J2560; J3411; J7120

== ENCOUNTER → 2024-02-11 13:28 | Outpatient (BNV) | payer OTHER, SELFPAY | PROVIDERS: Admitting Provider Internal Medicine; Emergency Provider Emergency Medicine; PCP Registered Nurse; Visit Provider Internal Medicine | DX: R00.0 Tachycardia, unspecified (principal) | CPT/HCPCS: 93010 ==

== ENCOUNTER → 2024-02-11 16:03 | Outpatient (BNV) | payer OTHER, SELFPAY | PROVIDERS: Admitting Provider Internal Medicine; Emergency Provider Emergency Medicine; PCP Registered Nurse; Visit Provider Internal Medicine | DX: F10.90 Alcohol use, unspecified, uncomplicated (principal); F41.1 Generalized anxiety disorder | CPT/HCPCS: 99222; 99232; 99239 ==

== ENCOUNTER 2024-03-03 12:37 | Outpatient (AMB) | payer OTHER, SELFPAY ==
--- NOTE | 2024-03-03 12:42 | MHC.AM.SUB ---
Intake Visit Reasons: MAT follow up tele Allergies heparin Allergy (Unknown, Verified 02/11/24 13:27) Unknown Penicillins Allergy (Unknown, Verified 02/11/24 13:27) Unknown Medication List - Last Reconciled 03/03/24 by Kaylee Sears CNP acetaminophen 1,000 mg PO Q6H PRN amlodipine 10 mg See Protocol PO DAILY atenolol 50 mg See Protocol PO DAILY doxycycline monohydrate 100 mg PO BID ibuprofen 800 mg PO DAILY PRN naltrexone 50 mg PO DAILY omeprazole 40 mg PO DAILY@0630 sertraline (Zoloft) 50 mg PO DAILY [facility] MAT follow up tele: Details: Patient presents for intake and continuation of treatment for AUD Seen by Recovery Support RN during recent medical admission Started on Naltrexone at that time He reports no alcohol since discharge Full history reviewed from notes and with patient 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 Discussed what has been helpful in sustaining recovery (abstinence) in the past and he identified exercise He notes that he has been having difficulty getting motivated --would like to restart sertraline Discussed medication list--he reports he stopped taking his atenolol since he has not been drinking but continues to take the amlodipine Discussed goals and he reports he wants to start therapy and work on developing coping strategies [facility] Medical History (Updated 03/08/24 @ 11:16 by Kaylee Sears CNP) Alcohol use disorder Generalized anxiety disorder HTN (hypertension) Alcohol abuse Acute renal failure (ARF) Small bowel obstruction Social History Household Members: None Housing: Apartment Do you presently have visiting nurse or other home services: No Alcohol intake: current Alcohol intake frequency: 3 or more drinks per day Alcohol type: wine and hard liquor Patient Tobacco Use Status: Never used Tobacco Second Hand Smoke Exposure: No Substance Use Type: Marijuana Advance Directives Date on File: 07/05/22 service: No Current occupational status: employed Review of Systems Const Reports as per HPI Telehealth Telehealth Telehealth Platform: Telephone Location of provider rendering services: practice address Location of patient: address on file Patient Identification confirmed using: Name, : Yes Telehealth method: voice only Patient verbally consented to treatment: Yes Patient verbally consented to billing insurance company: Yes Minutes spent on Phone/Video with Pt.: 35 Assessment & Plan Assessment & Plan (1) Alcohol use disorder, severe, dependence: Code(s): F10.20 - Alcohol dependence, uncomplicated Category: Medical Plan: refilled naltrexone and sertraline relapse prevention discussion follow up in office 2 -3 weeks referral for to be sent at that time Medications: New naltrexone 50 mg PO DAILY 90 tabs 0RF sertraline (Zoloft) 50 mg PO DAILY 30 tabs 0RF Discontinued doxycycline monohydrate Discontinued Reason: Patient Completed Course 100 mg PO BID 10 caps 0RF
== END 2024-03-03 13:05 | disposition home or self-care (01) ==
PROVIDERS: PCP Registered Nurse; Visit Provider Nurse Practitioner Psychiatric/Mental Health
DX: F10.20 Alcohol dependence, uncomplicated (principal)
CPT/HCPCS: 98968

== ENCOUNTER → 2024-03-03 12:37 | Outpatient (BNVA) | payer OTHER, SELFPAY | PROVIDERS: PCP Registered Nurse; Visit Provider Nurse Practitioner Psychiatric/Mental Health ==

== ENCOUNTER 2024-03-17 13:54 | Outpatient (AMB) | payer OTHER, SELFPAY ==
--- NOTE | 2024-03-17 14:13 | MHC.AM.SUB ---
Intake Visit Reasons: MAT Office Allergies heparin Allergy (Unknown, Verified 02/11/24 13:27) Unknown Penicillins Allergy (Unknown, Verified 02/11/24 13:27) Unknown HPI HPI MAT Office: Details: Patient presents for follow up for AUD On Zoloft 50mg tolerating dose PM Naltrexone 50mg in AM sleeping okay appetite increasing interested in therapy referral COUNTS INCLUDE 234 BEDS AT THE [facility] Medical History (Updated 03/08/24 @ 11:16 by Kaylee Sears CNP) Alcohol use disorder Generalized anxiety disorder HTN (hypertension) Alcohol abuse Acute renal failure (ARF) Small bowel obstruction Social History Household Members: None Housing: Apartment Do you presently have visiting nurse or other home services: No Alcohol intake: current Alcohol intake frequency: 3 or more drinks per day Alcohol type: wine and hard liquor Patient Tobacco Use Status: Never used Tobacco Second Hand Smoke Exposure: No Substance Use Type: Marijuana Advance Directives Date on File: 07/05/22 service: No Current occupational status: employed Review of Systems Const Reports as per HPI Physical Exam Const General: cooperative, healthy appearing and well groomed Orientation/consciousness: patient oriented x3 Limitations: no limitations Neuro General: patient oriented x3 Assessment & Plan Assessment & Plan (1) Alcohol use disorder, severe, dependence: Code(s): F10.20 - Alcohol dependence, uncomplicated Category: Medical Plan: continue medications as prescribed follow up 3 weeks therapy referral to be sent
== END 2024-03-17 14:33 | disposition home or self-care (01) ==
PROVIDERS: PCP Registered Nurse; Visit Provider Nurse Practitioner Psychiatric/Mental Health
DX: F10.20 Alcohol dependence, uncomplicated (principal)
CPT/HCPCS: 99214

== ENCOUNTER → 2024-03-17 13:54 | Outpatient (BNVA) | payer OTHER, SELFPAY | PROVIDERS: PCP Registered Nurse; Visit Provider Nurse Practitioner Psychiatric/Mental Health ==